=== PATIENT | male | born 1970 | race African-American/Black ===

== ENCOUNTER 2017-09-06 23:12 | Inpatient (IN) | payer BC, MEDICARE ==
[~2017-09-06] VITALS: Ht 175.3 cm; Wt 115.0 kg
[2017-09-07] VITALS (21 sets, daily range): BP systolic 115–135; BP diastolic 66–82; PULSE 57–88; RESP 16–20; TEMP 97.8–98.3; O2SAT 93–100
[2017-09-07] MEDS ORDERED: SODIUM CHLORIDE 0.9% FLUSH 10 ML FLUSH IV FLUSH PRN ×2 (00:30→13:45)
[2017-09-07] MEDS ORDERED: NALOXONE HCL 0.4 MG/ML AMP IV PUSH PRN (00:30)
[2017-09-07 02:05] LABS: AUTOMATED NEUTROPHIL # 1.9 TH/MM3 (1.8-7.7); BASOPHIL # 0.1 TH/MM3 (0-0.2); BASOPHIL % 1.3 % (0.0-2.0); EOSINOPHIL # 0.1 TH/MM3 (0-0.4); EOSINOPHIL % 1.5 % (0.0-4.0); HEMATOCRIT 40.3 % (39.0-51.0); HEMOGLOBIN 13.7 GM/DL (13.0-17.0); LYMPH % 42.8 % (9.0-44.0); LYMPHOCYTE # 1.9 TH/MM3 (1.0-4.8); MEAN CELL VOLUME 95.1 FL (80.0-100.0); MEAN CORPUSCULAR HEMOGLOBIN 32.4 PG (27.0-34.0); MEAN CORPUSCULAR HGB CONC 34.1 % (32.0-36.0); MEAN PLATELET VOLUME 7.7 FL (7.0-11.0); MONO % 12.3 % (0.0-8.0); MONOCYTE # 0.6 TH/MM3 (0-0.9); NEUT % 42.1 % (16.0-70.0); PLATELET COUNT 216 TH/MM3 (150-450); RED BLOOD COUNT 4.24 MIL/MM3 (4.50-5.90); RED CELL DISTRIBUTION WIDTH 14.3 % (11.6-17.2); WHITE BLOOD COUNT 4.5 TH/MM3 (4.0-11.0)
[2017-09-07 02:12] LABS: PROTHROMBIN TIME - PATIENT 10.4 SEC (9.8-11.6)
[2017-09-07] MEDS ORDERED: SUCR5CHW CHEW (02:33)
[2017-09-07] MEDS ORDERED: SEVEL800 PO (02:33)
[2017-09-07] MEDS ORDERED: PROT40TA PO (02:33)
[2017-09-07] MEDS ORDERED: SENS60TA PO (02:33)
[2017-09-07] MEDS ORDERED: NEPHTAB3 PO (02:33)
[2017-09-07] MEDS ORDERED: FURO1TAB61 PO (02:33)
[2017-09-07] MEDS ORDERED: ALLO300T2 PO (02:33)
[2017-09-07 02:38] LABS: BICARBONATE 30.2 MEQ/L (21.0-32.0)
--- NOTE | 2017-09-07 02:42 | HHI.HP ---
[facility] Primary Care Physician No Primary Care Physician Admission Diagnosis Diagnoses: Chief Complaint: preop kidney transplant Travel History International Travel<30 Days: No Contact w/Intl Traveler <30 Da: No History of Present Illness 47 y/o male with a history of ESRD, HLD, HTN, and gout was a direct admit for a kidney transplant by the transplant team today or Monday. Patient states he feels well. Denies any chest pain, sob, fever or chills. Review of Systems Except as stated in HPI: all other systems reviewed are Neg Past Family Social History Past Medical History ESRD Gout HTN HLD. Gerd Past Surgical History LAVF Left wrist surgery Reported Medications Reported Meds & Active Scripts Active Reported Velphoro (Sucroferric Oxyhydroxide) 500 Mg Chew 1,000 Mg CHEW TIDPC Protonix (Pantoprazole Sodium) 40 Mg Tab 40 Mg PO DAILY Sensipar (Cinacalcet) 60 Mg Tab 60 Mg PO DAILY Nephro-Michelle (B-Complex W/ C & Folic Acid) 1 Tab 1 Tab PO DAILY Lasix (Furosemide) 80 Mg Tab 80 Mg PO BID Allopurinol 300 Mg Tab 300 Mg PO DAILY Renvela (Sevelamer Carbonate) 800 Mg Tab 3,200 Mg PO BIDPC Allergies: Coded Allergies: Sulfa (Sulfonamide Antibiotics) (Unverified Allergy, Intermediate, Respiratory Failure and Swelling, 03/07/17) Uncoded Allergies: seasonal allergies (Allergy, Mild, 08/18/16) Active Ordered Medications Current Medications Medications (Trade) Dose Ordered Sig/Alisha Route Start Time Stop Time Status Last Admin (NS Flush) 2 ml UNSCH PRN IV FLUSH 09/07/17 00:30 (NS Flush) 2 ml BID IV FLUSH 09/07/17 09:00 (Narcan Inj) 0.4 mg UNSCH PRN IV PUSH 09/07/17 00:30 Family History Family history significant for HTN and DM Social History Patient denies any tobacco, alcohol or illicit drug use. Physical Exam Physical Exam GENERAL: This is a well-nourished, well-developed patient, in no apparent distress. SKIN: No rashes, ecchymoses or lesions. Cool and dry. HEAD: Atraumatic. Normocephalic. No temporal or scalp tenderness. EYES: Pupils equal round and reactive. Extraocular motions intact. ENT: Nose without bleeding, purulent drainage or septal hematoma. Airway patent. NECK: Trachea midline. No JVD or lymphadenopathy. CARDIOVASCULAR: Regular rate and rhythm without murmurs, gallops, or rubs. RESPIRATORY: Clear to auscultation. Breath sounds equal bilaterally. No wheezes , rales, or rhonchi. GASTROINTESTINAL: Abdomen soft, non-tender, nondistended. MUSCULOSKELETAL: Extremities without clubbing, cyanosis, or edema. No joint tenderness, effusion, or edema noted. NEUROLOGICAL: Awake and alert. Motor and sensory grossly within normal limits. Normal speech. Laboratory Laboratory Tests Test 09/07/17 01:00 White Blood Count 4.5 Red Blood Count 4.24 Hemoglobin 13.7 Hematocrit 40.3 Mean Corpuscular Volume 95.1 Mean Corpuscular Hemoglobin 32.4 Mean Corpuscular Hemoglobin Concent 34.1 Red Cell Distribution Width 14.3 Platelet Count 216 Mean Platelet Volume 7.7 Neutrophils (%) (Auto) 42.1 Lymphocytes (%) (Auto) 42.8 Monocytes (%) (Auto) 12.3 Eosinophils (%) (Auto) 1.5 Basophils (%) (Auto) 1.3 Neutrophils # (Auto) 1.9 Lymphocytes # (Auto) 1.9 Monocytes # (Auto) 0.6 Eosinophils # (Auto) 0.1 Basophils # (Auto) 0.1 CBC Comment DIFF FINAL Differential Comment Prothrombin Time 10.4 Prothromb Time International Ratio 1.0 Result Diagram: 09/07/17 0100 Caprini VTE Risk Assessment Caprini VTE Risk Assessment: No/Low Risk (score <= 1) Caprini Risk Assessment Model Point Value = 1 Point Value = 2 Point Value = 3 Point Value = 5 Age 41-60 Minor surgery BMI > 25 kg/m2 Swollen legs Varicose veins or History of unexplained or recurrent spontaneous Oral contraceptives or hormone replacement Sepsis (< 1 month) Serious lung disease, including pneumonia (< 1 month) Abnormal pulmonary function Acute myocardial infarction Congestive heart failure (< 1 month) History of inflammatory bowel disease Medical patient at bed rest Age 61-74 Arthroscopic surgery Major open surgery (> 45 min) Laparoscopic surgery (> 45 min) Malignancy Confined to bed (> 72 hours) Immobilizing plaster cast Central venous access Age >= 75 History of VTE Family history of VTE Factor V Leiden Prothrombin [id number] Lupus anticoagulant Anticardiolipin antibodies Elevated serum homocysteine Heparin-induced thrombocytopenia Other congenital or acquired thrombophilia Stroke (< 1 month) Elective arthroplasty Hip, pelvis, or leg fracture Acute spinal cord injury (< 1 month) Prophylaxis Regimen Total Risk Factor Score Risk Level Prophylaxis Regimen 0-1 Low Early ambulation 2 Moderate Order ONE of the following: *Sequential Compression Device (SCD) *Heparin 5000 units SQ BID 3-4 Higher Order ONE of the following medications: *Heparin 5000 units SQ TID *Enoxaparin/Lovenox 40 mg SQ daily (WT < 150 kg, CrCl > 30 mL/min) *Enoxaparin/Lovenox 30 mg SQ daily (WT < 150 kg, CrCl > 10-29 mL/min) *Enoxaparin/Lovenox 30 mg SQ BID (WT < 150 kg, CrCl > 30 mL/min) AND/OR *Sequential Compression Device (SCD) 5 or more Highest Order ONE of the following medications: *Heparin 5000 units SQ TID (Preferred with Epidurals) *Enoxaparin/Lovenox 40 mg SQ daily (WT < 150 kg, CrCl > 30 mL/min) *Enoxaparin/Lovenox 30 mg SQ daily (WT < 150 kg, CrCl > 10-29 mL/min) *Enoxaparin/Lovenox 30 mg SQ BID (WT < 150 kg, CrCl > 30 mL/min) AND *Sequential Compression Device (SCD) Assessment and Plan Problem List: (1) ESRD (end stage renal disease) on dialysis ICD Code: N18.6 - End stage renal disease; Z99.2 - Dependence on renal dialysis Status: Acute (2) Hypertension ICD Code: I10 - Essential (primary) hypertension Status: Acute Assessment and Plan 47 y/o male with a history of ESRD, HLD, HTN, and gout was a direct admit for a kidney transplant by the transplant team today or Monday. ESRD on dialysis admitted for renal transplant -Renal transplant team to see patient in AM -Resume home medications -Avoid nephrotoxins Other chronic conditions: Resume home medications DVT prophylaxis: SCDs Discussed Condition With Patient, RN and Dr. Anton Physician Certification 2 Midnight Certification Type: Admission for Inpatient Services Order for Inpatient Services The services are ordered in accordance with Medicare regulations or non- Medicare payer requirements, as applicable. In the case of services not specified as inpatient-only, they are appropriately provided as inpatient services in accordance with the 2-midnight benchmark. Estimated LOS (days): 3 days is the estimated time the patient will need to remain in the hospital, assuming treatment plan goals are met and no additional complications. Post-Hospital Plan: Home Pricila Calderón Sep 07, 2017 02:42
--- NOTE | 2017-09-07 07:42 | HHI.PR ---
Subjective Remarks in no acute distress. resting comfortably. d/w the RN and no acute issues over night. Objective Vitals Vital Signs Date Time Temp Pulse Resp B/P (MAP) Pulse Ox O2 Delivery O2 Flow Rate FiO2 09/07/17 06:00 60 09/07/17 05:00 64 09/07/17 04:00 66 09/07/17 03:00 64 09/07/17 03:00 98.0 70 16 131/78 (95) 94 09/07/17 02:00 70 09/07/17 01:00 62 09/07/17 00:00 98.3 73 16 128/82 (97) 93 09/07/17 00:00 93 Room Air I/O 09/06/17 09/06/17 09/06/17 09/07/17 09/07/17 09/07/17 07:00 15:00 23:00 07:00 15:00 23:00 Intake Total 240 ml Output Total 0 ml Balance 240 ml Intake Oral 240 ml Output Urine Total 0 ml Result Diagram: 09/07/17 01009/07/17 010 Objective Remarks GENERAL: This is a well-nourished, well-developed patient, in no apparent distress. CARDIOVASCULAR: Regular rate and regular rhythm without murmurs, gallops, or rubs. RESPIRATORY: Clear to auscultation. Breath sounds equal bilaterally. No wheezes , rales, or rhonchi. GASTROINTESTINAL: Abdomen soft, non-tender, nondistended. Normal, active bowel sounds MUSCULOSKELETAL: Extremities without clubbing, cyanosis, or edema. NEURO: Alert & Oriented x4 to person, place, time, situation. Moves all ext x4 Medications and IVs Inpatient Medications Allopurinol (Zyloprim) 300 mg DAILY PO ; Start 09/07/17 at 09:00 Cinacalcet (Sensipar) 60 mg DAILY PO ; Start 09/07/17 at 09:00 Furosemide (Lasix) 80 mg BID PO ; Start 09/07/17 at 09:00 Naloxone HCl (Narcan Inj) 0.4 mg UNSCH PRN IV PUSH SEE LABEL COMMENTS; Start at 00:30 Pantoprazole Sodium (Protonix) 40 mg DAILY PO ; Start 09/07/17 at 09:00 Patient Own Medication PT OWN MED:SUCROFERRIC OXYHYDROX... TIDPC PO ; Start at 09:30; Status Future Hold Sevelamer Carbonate (Renvela) 3,200 mg BIDPC PO ; Start 09/07/17 at 09:00 Sodium Chloride (NS Flush) 2 ml BID IV FLUSH ; Start 09/07/17 at 09:00 Vitamin B Complex/ Vit C/Folic Acid (Nephrocaps) 1 cap DAILY PO ; Start at 09:00 A/P Problem List: (1) ESRD (end stage renal disease) on dialysis ICD Code: N18.6 - End stage renal disease; Z99.2 - Dependence on renal dialysis Status: Acute (2) Hypertension ICD Code: I10 - Essential (primary) hypertension Status: Acute Assessment and Plan ESRD on dialysis admitted for renal transplant -Renal transplant team to see patient today. -consult nephrology. -Resumed home medications -Avoid nephrotoxins Other chronic conditions: Resumed home medications DVT prophylaxis: SCDs Discharge Planning for kidney transplant. Zach Aguayo MD Sep 07, 2017 07:42
[2017-09-07] MEDS ORDERED: SODIUM CHLOR 0.9% 1000 ML INJ 1,000 ML IV ONE (08:00)
[2017-09-07] MEDS: SODIUM CHLORIDE 0.9% FLUSH 10 ML FLUSH IV FLUSH SCH ×2 (09:00→20:06)
[2017-09-07] MEDS: CINACALCET HYDROCHLORIDE 30 MG TAB PO SCH (09:00)
[2017-09-07] MEDS: VITAMIN B CMPLX/VITC/FOLIC AC CAP PO SCH (09:03)
[2017-09-07] MEDS: PANTOPRAZOLE SOD 40 MG DELAYED RELEASE TAB PO SCH (09:04)
[2017-09-07] MEDS: FUROSEMIDE 40 MG TAB PO SCH ×2 (09:04→20:06)
[2017-09-07] MEDS: SUCROFERRIC OXYHYDROXIDE 500 MG PO SCH ×3 (09:04→18:30)
[2017-09-07] MEDS: ALLOPURINOL 300 MG TAB PO SCH (09:04)
[2017-09-07] MEDS: SEVELAMER CARBONATE 800 MG TAB PO SCH ×3 (09:05→19:32)
[2017-09-07] MEDS ORDERED: methylPREDNISolone SO SUCC INJ 500 MG in SODIUM CHLORIDE 0.9% INJ 100 ML IV ONE (09:15)
[2017-09-07] MEDS ORDERED: MYCOPHENOLATE MOFETIL INJ 1,000 MG in DEXTROSE 5% IN WATE 150 ML INJ 150 ML IV SCH ×4 (09:15→16:30)
[2017-09-07] MEDS ORDERED: ceFAZolin 2 GM PREMIX 50 ML IV SCH (09:15)
[2017-09-07] MEDS ORDERED: SUCROFERRIC OXYHYDROXIDE 500 MG PO SCH (09:30)
[2017-09-07] MEDS ORDERED: THYMOGLOBULIN ANAPYLAXIS KIT MISC XX PRN (09:30)
--- NOTE | 2017-09-07 10:11 | RADRPT ---
EXAM DATE/TIME: 09/07/2017 09:58 [place] COMPARISON: No previous studies available for comparison. INDICATIONS : Evaluate for pneumonia, pneumothorax, or communicable disease. Pre-op for kidney transplant. MEDICAL HISTORY : None. SURGICAL HISTORY : None. ENCOUNTER: Initial ACUITY: 1 day PAIN SCORE: 0/10 LOCATION: Bilateral chest FINDINGS: PA and lateral views of the chest demonstrate the lungs to be symmetrically aerated without evidence of mass, infiltrate or effusion. The cardiomediastinal contours are unremarkable. Osseous structure s are intact. CONCLUSION: No acute disease. Neal Waters MD on September 07, 2017 at 10:09 Board Certified Radiologist. This report was verified electronically.
--- NOTE | 2017-09-07 11:03 | PD.CONS ---
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 Presents for possibel donor renal transplant. Denies any recent cardiopulmonary , infectious , or other concerning issues. Makes about 1.2 liters of urine daily Review of Systems Except as stated in HPI: all other systems reviewed are Neg Makes about 1.2 liters of urine daily. Denies any significant c/o on full survey of ROS Past Family Social History Allergies: Coded Allergies: Sulfa (Sulfonamide Antibiotics) (Unverified Allergy, Intermediate, Respiratory Failure and Swelling, 03/07/17) Uncoded Allergies: seasonal allergies (Allergy, Mild, 08/18/16) Past Medical History Includes htn, gout CAD, FSGS Past Surgical History Includes left arm AVF and right wrist surgery for torn ligament Family History several relatives with htn, DM , and CAD, obesity. Maternal grandmother- had a CA Social History Denies tob/ etoh/ illicit drug use Physical Exam Vital Signs Vital Signs Date Time Temp Pulse Resp B/P (MAP) Pulse Ox O2 Delivery O2 Flow Rate FiO2 09/07/17 10:00 09/07/17 09:00 66 09/07/17 08:00 70 09/07/17 07:30 57 09/07/17 07:30 96 Room Air 09/07/17 07:30 98.2 76 20 128/75 (92) 96 09/07/17 06:00 60 09/07/17 05:00 64 09/07/17 04:00 66 09/07/17 03:00 64 09/07/17 03:00 98.0 70 16 131/78 (95) 94 09/07/17 02:00 70 09/07/17 01:00 62 09/07/17 00:00 98.3 73 16 128/82 (97) 93 09/07/17 00:00 93 Room Air Physical Exam GENERAL: This is a well-nourished, well-developed patient, in no apparent distress. SKIN: No rashes, ecchymoses or lesions. Cool and dry. HEAD: Atraumatic. Normocephalic. No temporal or scalp tenderness. EYES: Pupils equal round and reactive. Extraocular motions intact. No scleral icterus. No injection or drainage. ENT: Nose without bleeding, purulent drainage or septal hematoma. Throat without erythema, tonsillar hypertrophy or exudate. Uvula midline. Airway patent. NECK: Trachea midline. No JVD or lymphadenopathy. Supple, nontender, no meningeal signs. CARDIOVASCULAR: Regular rate and rhythm without murmurs, gallops, or rubs. No carotid bruits. RESPIRATORY: Clear to auscultation. Breath sounds equal bilaterally. No wheezes , rales, or rhonchi. GASTROINTESTINAL: Abdomen soft, non-tender, nondistended. No hepato-splenomegaly , or palpable masses. No guarding. HISTOLOGY TECHNICIAN/RECT: No inguinal hernias. No testicular masses. MUSCULOSKELETAL: Extremities without clubbing, cyanosis, or edema. No joint tenderness, effusion, or edema noted. No calf tenderness. Negative Homans sign bilaterally. Palpable femoral/DP/ PT pulses bilaterally NEUROLOGICAL: Awake and alert. Cranial nerves II through XII intact. Motor and sensory grossly within normal limits. Five out of 5 muscle strength in all muscle groups. Normal speech. Laboratory Laboratory Tests Test 09/07/17 01:00 White Blood Count 4.5 Red Blood Count 4.24 Hemoglobin 13.7 Hematocrit 40.3 Mean Corpuscular Volume 95.1 Mean Corpuscular Hemoglobin 32.4 Mean Corpuscular Hemoglobin Concent 34.1 Red Cell Distribution Width 14.3 Platelet Count 216 Mean Platelet Volume 7.7 Neutrophils (%) (Auto) 42.1 Lymphocytes (%) (Auto) 42.8 Monocytes (%) (Auto) 12.3 Eosinophils (%) (Auto) 1.5 Basophils (%) (Auto) 1.3 Neutrophils # (Auto) 1.9 Lymphocytes # (Auto) 1.9 Monocytes # (Auto) 0.6 Eosinophils # (Auto) 0.1 Basophils # (Auto) 0.1 CBC Comment DIFF FINAL Differential Comment Prothrombin Time 10.4 Prothromb Time International Ratio 1.0 Blood Urea Nitrogen 46 Creatinine 10.00 Random Glucose 92 Calcium Level 9.0 Sodium Level 137 Potassium Level 3.9 Chloride Level 99 Carbon Dioxide Level 30.2 Anion Gap 8 Estimat Glomerular Filtration Rate 7 Result Diagram: 09/07/17 0100 09/07/17 0100 Assessment and Plan Problem List: (1) Hypertension ICD Codes: I10 - Essential (primary) hypertension Status: Acute (2) ESRD (end stage renal disease) on dialysis ICD Codes: N18.6 - End stage renal disease; Z99.2 - Dependence on renal dialysis Status: Acute Assessment and Plan 47 yom with CKD-5 due to Htn. Hx of FSGS. BMI 32. Last HD yesterday (monday) . Lives in [place]. Admitted last night for possible brain donor, renal transplant. Patient was asked to come in and be admitted last night, since he lives in the [place] area and the original Donor OR was planned for 1899 last night> the planned donor OR was delayed, however, due to some delay in allocation of the thoracic organs. Donor OR is planned for today. Potentially we may not proceed to surgery until tomorrow. This was discussed with the patient and his . They seem to understand an are okay with that. We briefly reviewed the surgery and the hospital course. All questions were answered. Preop admission testing in process. Will await for input form the OP regarding the donor organ. All questions answered. Von Caba Jr., MD Sep 07, 2017 11:03
[2017-09-07] MEDS ORDERED: ANTITHYMOCYTE GLOB(RABBIT) INJ 150 MG in SODIUM CHLORID 0.9% 500 ML INJ 500 ML IV-CENTRAL ONE (11:30)
[2017-09-07 11:49] LABS: ALBUMIN 3.7 GM/DL (3.4-5.0); ALKALINE PHOSPHATASE 148 U/L (45-117); ALT (GPT) 34 U/L (12-78); AST (GOT) 18 U/L (15-37); BICARBONATE 30.5 MEQ/L (21.0-32.0); BLOOD UREA NITROGEN 48 MG/DL (7-18); CALCIUM 9.5 MG/DL (8.5-10.1); CHLORIDE 99 MEQ/L (98-107); GLOMERULAR FILTRATION RATE 6 ML/MIN (>89); GLUCOSE,RANDOM 91 MG/DL (74-106); SODIUM (NA) 137 MEQ/L (136-145); TOTAL BILIRUBIN ADULT 0.4 MG/DL (0.2-1.0); TOTAL PROTEIN 8.8 GM/DL (6.4-8.2)
[2017-09-07 11:53] LABS: CREATININE 11.42 MG/DL (0.60-1.30)
[2017-09-07] MEDS ORDERED: SODIUM CHLOR 0.9% 1000 ML INJ 1,000 ML IV PRN (13:34)
[2017-09-07] MEDS ORDERED: SODIUM CHLOR 0.9% 1000 ML INJ 1,000 ML OTHER PRN ×2 (13:34)
--- NOTE | 2017-09-07 13:38 | PD.CONS ---
HPI Service Nephrology Consult Requested By Dr. Aguayo Reason for Consult ESRD Primary Care Physician No Primary Care Physician History of Present Illness Patient is a 47-year-old male with history of ESRD, hypertension who has been on our list receive a potential donor kidney transplant offer, he is here he goes on dialysis on Monday, Monday and Monday. There is a potential of surgery early in the morning, he denies any chest pain shortness of breath at such Review of Systems Constitutional: DENIES: Diaphoretic episodes, Fatigue, Fever, Weight gain, Weight loss, Chills, Dizziness, Change in appetite, Night Sweats Endocrine: DENIES: Heat/cold intolerance, Polydipsia, Polyuria, Polyphagia Eyes: DENIES: Blurred vision, Diplopia, Eye inflammation, Eye pain, Vision loss , Photosensitivity, Double Vision Ears, nose, mouth, throat: DENIES: Tinnitus, Hearing loss, Vertigo, Nasal discharge, Oral lesions, Throat pain, Hoarseness, Ear Pain, Running Nose, Epistaxis, Sinus Pain, Toothache, Odynophagia Respiratory: DENIES: Apneas, Cough, Snoring, Wheezing, Hemoptysis, Sputum production, Shortness of breath Cardiovascular: DENIES: Chest pain, Palpitations, Syncope, Dyspnea on Exertion , PND, Lower Extremity Edema, Orthopnea, Claudication Gastrointestinal: DENIES: Abdominal pain, Black stools, Bloody stools, Constipation, Diarrhea, Nausea, Vomiting, Difficulty Swallowing, Anorexia Genitourinary: COMPLAINS OF: Sexual dysfunction, Urinary frequency, Urinary incontinence, Urgency, Hematuria, Dysuria, Nocturia, Penile Discharge, Testicular Pain, Testicular Swelling Musculoskeletal: DENIES: Joint pain, Muscle aches, Stiffness, Joint Swelling, Back pain, Neck pain Integumentary: DENIES: Abnormal pigmentation, Nail changes, Pruritus, Rash Hematologic/lymphatic: DENIES: Bruising, Lymphadenopathy Neurologic: DENIES: Abnormal gait, Headache, Localized weakness, Paresthesias, Seizures, Speech Problems, Tremor, Poor Balance Psychiatric: DENIES: Anxiety, Confusion, Mood changes, Depression, Hallucinations, Agitation, Suicidal Ideation, Homicidal Ideation, Delusions Past Family Social History Allergies: Coded Allergies: Sulfa (Sulfonamide Antibiotics) (Unverified Allergy, Intermediate, Respiratory Failure and Swelling, 03/07/17) Uncoded Allergies: seasonal allergies (Allergy, Mild, 08/18/16) Past Medical History ESRD FSGS Ulcer polyps Gout Hyperlipidemia Past Surgical History AVF Left arm Gastric ulcer repair Endoscopy 2011 Rt hand surgery for wrist ligament Reported Medications Reported Meds & Active Scripts Active Reported Velphoro (Sucroferric Oxyhydroxide) 500 Mg Chew 1,000 Mg CHEW TIDPC Protonix (Pantoprazole Sodium) 40 Mg Tab 40 Mg PO DAILY Sensipar (Cinacalcet) 60 Mg Tab 60 Mg PO DAILY Nephro-Michelle (B-Complex W/ C & Folic Acid) 1 Tab 1 Tab PO DAILY Lasix (Furosemide) 80 Mg Tab 80 Mg PO BID Allopurinol 300 Mg Tab 300 Mg PO DAILY Renvela (Sevelamer Carbonate) 800 Mg Tab 3,200 Mg PO BIDPC Active Ordered Medications Current Medications Medications (Trade) Dose Ordered Sig/Alisha Route Start Time Stop Time Status Last Admin (NS Flush) 2 ml UNSCH PRN IV FLUSH 09/07/17 00:30 (NS Flush) 2 ml BID IV FLUSH 09/07/17 09:00 09/07/17 09:00 (Narcan Inj) 0.4 mg UNSCH PRN IV PUSH 09/07/17 00:30 (Zyloprim) 300 mg DAILY PO 09/07/17 09:00 09/07/17 09:04 (Lasix) 80 mg BID PO 09/07/17 09:00 09/07/17 09:04 (Protonix) 40 mg DAILY PO 09/07/17 09:00 09/07/17 09:04 (Renvela) 3,200 mg BIDPC PO 09/07/17 09:00 09/07/17 09:05 (Nephrocaps) 1 cap DAILY PO 09/07/17 09:00 09/07/17 09:03 (Sensipar) 60 mg DAILY PO 09/07/17 09:00 09/07/17 09:00 Sodium Chloride 1,000 ml @ 30 mls/hr Q24H ONCE IV 09/07/17 08:00 09/08/17 07:59 09/07/17 08:00 Patient Own Medication PT OWN MED:SUCROFERRIC OXYHYDROX... TIDPC PO 09/07/17 09:30 09/07/17 09:04 Cefazolin Sodium/ Dextrose 50 ml @ 100 mls/hr COLD ROLL CATCHER IV 09/07/17 09:15 09/11/17 09:14 Anti-Thymocyte Globulin (Rabbit) 150 mg/Sodium Chloride 500 ml @ 83.333 mls/ hr ONCE ONCE IV-CENTRAL 09/07/17 11:30 09/07/17 17:29 Miscellaneous Information 1 UNSCH PRN XX 09/07/17 09:30 Family History History of diabetes and hypertension in the family Social History Denies smoking or alcohol use Physical Exam Vital Signs Vital Signs Date Time Temp Pulse Resp B/P (MAP) Pulse Ox O2 Delivery O2 Flow Rate FiO2 09/07/17 13:00 66 09/07/17 12:00 75 09/07/17 11:00 78 09/07/17 11:00 98.0 84 20 126/72 (90) 95 09/07/17 10:00 09/07/17 09:00 66 09/07/17 08:00 70 09/07/17 07:30 57 09/07/17 07:30 96 Room Air 09/07/17 07:30 98.2 76 20 128/75 (92) 96 09/07/17 06:00 60 09/07/17 05:00 64 09/07/17 04:00 66 09/07/17 03:00 64 09/07/17 03:00 98.0 70 16 131/78 (95) 94 09/07/17 02:00 70 09/07/17 01:00 62 09/07/17 00:00 98.3 73 16 128/82 (97) 93 09/07/17 00:00 93 Room Air Physical Exam GENERAL: Well-nourished, well-developed patient. SKIN: Warm and dry. HEAD: Normocephalic. EYES: No scleral icterus. No injection or drainage. NECK: Supple, trachea midline. No JVD or lymphadenopathy. CARDIOVASCULAR: Regular rate and rhythm without murmurs, gallops, or rubs. RESPIRATORY: Breath sounds equal bilaterally. No accessory muscle use. GASTROINTESTINAL: Abdomen soft, non-tender, nondistended. EXTREMITIES: No cyanosis, or edema. NEUROLOGICAL: Awake, alert, and oriented x 3. Non-focal. Laboratory Laboratory Tests Test 09/07/17 01:00 09/07/17 11:17 White Blood Count 4.5 Red Blood Count 4.24 Hemoglobin 13.7 Hematocrit 40.3 Mean Corpuscular Volume 95.1 Mean Corpuscular Hemoglobin 32.4 Mean Corpuscular Hemoglobin Concent 34.1 Red Cell Distribution Width 14.3 Platelet Count 216 Mean Platelet Volume 7.7 Neutrophils (%) (Auto) 42.1 Lymphocytes (%) (Auto) 42.8 Monocytes (%) (Auto) 12.3 Eosinophils (%) (Auto) 1.5 Basophils (%) (Auto) 1.3 Neutrophils # (Auto) 1.9 Lymphocytes # (Auto) 1.9 Monocytes # (Auto) 0.6 Eosinophils # (Auto) 0.1 Basophils # (Auto) 0.1 CBC Comment DIFF FINAL Differential Comment Prothrombin Time 10.4 Prothromb Time International Ratio 1.0 Blood Urea Nitrogen 46 48 Creatinine 10.00 11.42 Random Glucose 92 91 Calcium Level 9.0 9.5 Sodium Level 137 137 Potassium Level 3.9 4.4 Chloride Level 99 99 Carbon Dioxide Level 30.2 30.5 Anion Gap 8 8 Estimat Glomerular Filtration Rate 7 6 Total Protein 8.8 Albumin 3.7 Alkaline Phosphatase 148 Aspartate Amino Transf (AST/SGOT) 18 Alanine Aminotransferase (ALT/SGPT) 34 Total Bilirubin 0.4 Result Diagram: 09/07/17 0100 09/07/17 1117 Assessment and Plan Problem List: (1) ESRD (end stage renal disease) on dialysis ICD Codes: N18.6 - End stage renal disease; Z99.2 - Dependence on renal dialysis Status: Acute Plan: Patient is going to receive kidney transplant early in the morning it was discussed with Dr. Caba that we need to dialyze him this afternoon He agreed with the plan Continue to monitor (2) Hypertension ICD Codes: I10 - Essential (primary) hypertension Status: Acute Plan: Controlled on medication Problem Qualifiers (1) Hypertension: Qualified Codes: I10 - Essential (primary) hypertension John Colmenares MD Sep 07, 2017 13:38
[2017-09-07] MEDS ORDERED: cloNIDine HCL 0.1 MG TAB PO PRN (13:45)
[2017-09-07] MEDS ORDERED: HEPARIN SODIUM - IV 10,000 UNITS/10 ML VIAL IV FLUSH PRN (13:45)
[2017-09-07] MEDS ORDERED: HEPARIN SODIUM - IV 10,000 UNITS/10 ML VIAL PRN (13:45)
[2017-09-07] MEDS ORDERED: ALBUMIN 25% INJ 100 ML IV PRN (13:45)
[2017-09-07] MEDS ORDERED: GELATIN 12 MM/7 MM FOAM TOP PRN (13:45)
[2017-09-07] MEDS ORDERED: MANNITOL 12.5 GM/50 ML VIAL IV PRN (13:45)
[2017-09-07] MEDS ORDERED: GENTAMICIN SULFATE 20 MG/2 ML VIAL OTHER PRN (13:45)
[2017-09-07] MEDS ORDERED: diphenhydrAMINE HCL 25 MG CAP PO PRN (13:45)
[2017-09-07] MEDS ORDERED: ACETAMINOPHEN 325 MG TAB PO PRN (13:45)
[2017-09-07] MEDS ORDERED: ONDANSETRON HCL 4 MG/2 ML VIAL IV PUSH PRN (13:45)
[2017-09-07] MEDS ORDERED: NITROGLYCERIN 0.4 MG SL 25 TABS/BTL SL PRN (13:45)
[2017-09-07] MEDS ORDERED: ANTITHYMOCYTE GLOB(RABBIT) INJ 150 MG in SODIUM CHLORID 0.9% 500 ML INJ 500 ML IV-CENTRAL SCH (16:15)
[2017-09-07] MEDS ORDERED: methylPREDNISolone SO SUCC INJ 500 MG in SODIUM CHLORIDE 0.9% INJ 100 ML IV SCH (16:30)
[2017-09-08] VITALS (18 sets, daily range): BP systolic 113–147; BP diastolic 72–79; PULSE 57–105; RESP 16–20; TEMP 97.4–98.9; O2SAT 96–100
[2017-09-08] MEDS ORDERED: ceFAZolin INJ 1,000 MG VIAL ONE (07:08)
[2017-09-08] MEDS ORDERED: GENTAMICIN SULFATE 80 MG/2 ML VIAL ONE (07:08)
[2017-09-08] MEDS ORDERED: PAPAVERINE INJ 60 MG/2 ML VIAL ONE (07:10)
--- NOTE | 2017-09-08 08:09 | HHI.PR ---
Subjective Remarks No new c/o Objective Vital Signs Date Time Temp Pulse Resp B/P (MAP) Pulse Ox O2 Delivery O2 Flow Rate FiO2 09/08/17 06:00 57 09/08/17 05:00 64 09/08/17 04:00 71 09/08/17 03:10 97.9 70 16 113/72 (86) 97 09/08/17 03:00 58 09/08/17 02:00 71 09/08/17 01:00 60 09/08/17 00:00 69 09/07/17 23:00 65 09/07/17 23:00 97.8 70 16 115/66 (82) 96 09/07/17 22:19 99 21 09/07/17 22:00 58 09/07/17 21:00 72 09/07/17 20:00 88 09/07/17 19:50 98.1 77 16 135/79 (97) 100 09/07/17 19:00 76 09/07/17 13:00 66 09/07/17 12:00 75 09/07/17 11:00 78 09/07/17 11:00 98.0 84 20 126/72 (90) 95 09/07/17 10:00 09/07/17 09:00 66 I/O 09/07/17 09/07/17 09/07/17 09/08/17 09/08/17 09/08/17 06:59 14:59 22:59 06:59 14:59 22:59 Intake Total 240 ml 240 ml Output Total 0 ml 2000 ml 100 ml Balance 240 ml -2000 ml 140 ml Intake Oral 240 ml 240 ml Output Urine Total 0 ml 100 ml Hemodialysis 2000 ml # Bowel Movements 0 Result Diagram: 09/07/17 0100 09/07/17 1117 Objective Remarks Resp-CTAB CV-s1s2 Abd-+ BS, soft, NT/ ND Ext-Calves soft NT B Assessment and Plan Problem List: (1) Hypertension ICD Codes: I10 - Essential (primary) hypertension Status: Acute (2) ESRD (end stage renal disease) on dialysis ICD Codes: N18.6 - End stage renal disease; Z99.2 - Dependence on renal dialysis Status: Acute Assessment and Plan 47 yom with CKD-5 due to Htn. Hx of FSGS. Patient preop for possible cadaveric renal transplant Problem Qualifiers (1) Hypertension: Qualified Codes: I10 - Essential (primary) hypertension Von Caba Jr., MD Sep 08, 2017 08:09
--- NOTE | 2017-09-08 08:31 | HHI.PR ---
Subjective Remarks Took a shower. No fever or chills. Satting well on room air. No cough, no LE edema. No lightheadedness, cp, palpitations. No n/v/d/c. no pain. Feels good and is ready for transplant. Patient says he is very active and walks 5 miles. Family at bedside very supportive. No events overnight. Prepping for kidney transplant today. Objective Vitals Vital Signs Date Time Temp Pulse Resp B/P (MAP) Pulse Ox O2 Delivery O2 Flow Rate FiO2 09/08/17 06:00 57 09/08/17 05:00 64 09/08/17 04:00 71 09/08/17 03:10 97.9 70 16 113/72 (86) 97 09/08/17 03:00 58 09/08/17 02:00 71 09/08/17 01:00 60 09/08/17 00:00 69 09/07/17 23:00 65 09/07/17 23:00 97.8 70 16 115/66 (82) 96 09/07/17 22:19 99 21 09/07/17 22:00 58 09/07/17 21:00 72 09/07/17 20:00 88 09/07/17 19:50 98.1 77 16 135/79 (97) 100 09/07/17 19:00 76 09/07/17 13:00 66 09/07/17 12:00 75 09/07/17 11:00 78 09/07/17 11:00 98.0 84 20 126/72 (90) 95 09/07/17 10:00 09/07/17 09:00 66 I/O 09/07/17 09/07/17 09/07/17 09/08/17 09/08/17 09/08/17 07:00 15:00 23:00 07:00 15:00 23:00 Intake Total 240 ml 240 ml Output Total 0 ml 2000 ml 100 ml Balance 240 ml -2000 ml 140 ml Intake Oral 240 ml 240 ml Output Urine Total 0 ml 100 ml Hemodialysis 2000 ml # Bowel Movements 0 Result Diagram: 09/07/17 0100 09/07/17 1117 Imaging Last Impressions Chest X-Ray 09/07/17 0000 Signed Impressions: Service Date/Time: August 09:58 - CONCLUSION: No acute disease. Neal F. Evelin, MD Objective Remarks GENERAL: This is a well-nourished, well-developed patient, in no apparent distress. CARDIOVASCULAR: Regular rate and regular rhythm without murmurs, gallops, or rubs. RESPIRATORY: Clear to auscultation. Breath sounds equal bilaterally. No wheezes , rales, or rhonchi. GASTROINTESTINAL: Abdomen soft, non-tender, nondistended. Normal, active bowel sounds MUSCULOSKELETAL: Extremities without clubbing, cyanosis, or edema. NEURO: Alert & Oriented x4 to person, place, time, situation. Moves all ext x4 A/P Problem List: (1) ESRD (end stage renal disease) on dialysis ICD Code: N18.6 - End stage renal disease; Z99.2 - Dependence on renal dialysis Status: Acute (2) Hypertension ICD Code: I10 - Essential (primary) hypertension Status: Acute Assessment and Plan ESRD on dialysis admitted for renal transplant Renal transplant team following. Poss cadaveric renal transplant today Dr Caba consult nephrology Dr Darrian deluca. Resumed home medications Avoid nephrotoxins H/H stable. Monitor Other chronic conditions appears stable, monitor. Resumed home medications DVT prophylaxis: SCDs Discharge Planning plan for kidney transplant. Problem Qualifiers (1) Hypertension: Qualified Codes: I10 - Essential (primary) hypertension Isabella Teague MD Sep 08, 2017 08:31
[2017-09-08] MEDS: SEVELAMER CARBONATE 800 MG TAB PO SCH ×2 (09:00→18:00)
[2017-09-08] MEDS: PANTOPRAZOLE SOD 40 MG DELAYED RELEASE TAB PO SCH (09:00)
[2017-09-08] MEDS: FUROSEMIDE 40 MG TAB PO SCH ×2 (09:00→21:00)
[2017-09-08] MEDS: SODIUM CHLORIDE 0.9% FLUSH 10 ML FLUSH IV FLUSH SCH ×2 (09:00→21:46)
[2017-09-08] MEDS: VITAMIN B CMPLX/VITC/FOLIC AC CAP PO SCH (09:00)
[2017-09-08] MEDS: ALLOPURINOL 300 MG TAB PO SCH (09:00)
[2017-09-08] MEDS: CINACALCET HYDROCHLORIDE 30 MG TAB PO SCH (09:00)
[2017-09-08] MEDS: SUCROFERRIC OXYHYDROXIDE 500 MG PO SCH ×3 (09:30→18:25)
[2017-09-08] MEDS ORDERED: FUROSEMIDE 40 MG/4 ML VIAL ONE ×2 (10:02→12:53)
[2017-09-08] MEDS ORDERED: fentaNYL CITRATE 1000 MCG/20 ML VIAL ONE (10:10)
[2017-09-08 11:33] LABS: HEPATITIS A AB IGM NEGATIVE (NEGATIVE); HEPATITIS B SURFACE ANTIGEN NEGATIVE (NEGATIVE); HEPATITIS C AB IgG REACTIVE (NEGATIVE)
[2017-09-08] MEDS ORDERED: DEXAMETHASONE SOD PHOS 4 MG/ML VIAL IV ONE (12:00)
[2017-09-08] MEDS ORDERED: LIDOCAINE HCL 1% PF 5 ML SYRINGE OTHER ONE (12:00)
[2017-09-08] MEDS ORDERED: ROCURONIUM INJ 50 MG/5 ML SYRINGE IV PUSH ONE (12:00)
[2017-09-08] MEDS ORDERED: NEOSTIGMINE 5 MG/5 ML SYRINGE IV PUSH ONE (12:00)
[2017-09-08] MEDS ORDERED: ONDANSETRON HCL 4 MG/2 ML VIAL IV ONE (12:00)
[2017-09-08] MEDS ORDERED: SUCCINYLCHOLINE CHLORIDE 200 MG/10 ML VIAL IV ONE (12:00)
[2017-09-08] MEDS ORDERED: PHENYLEPH/NS 1000 MCG/10 ML SYR IV ONE (12:00)
[2017-09-08] MEDS ORDERED: GLYCOPYRROLATE 1 MG/5 ML SYRINGE IV PUSH ONE (12:00)
[2017-09-08] MEDS ORDERED: ePHEDrine/NS 25 MG/5 ML SYRINGE IV ONE (12:00)
[2017-09-08] MEDS ORDERED: PROPOFOL 200 MG/20 ML AMP IV ONE (12:00)
[2017-09-08] MEDS ORDERED: HEPARIN SODIUM - SQ 10,000 UNITS/ML VIAL ONE (12:03)
[2017-09-08 13:38] LABS: HEPATITIS B CORE AB IGM NEGATIVE (NEGATIVE)
[2017-09-08] MEDS ORDERED: SUGAMMADEX SODIUM 200 MG/2 ML VIAL IV PUSH ONE (14:55)
--- NOTE | 2017-09-08 15:07 | PD.OP ---
ESRD and desire for Donor kidney Transplant Operative Report Date of Surgery: Sep 08, 2017 Preoperative Diagnosis: ESRD and desire for donor renal transplant Postoperative Diagnosis: same, right renal allograft to right iliac fossa Procedure: donor renal transplant to right renal fossa backtable prep of right renal allograft with venous reconstruction X 2 ureteral stent placement Anesthesia: GET Surgeon: Von Caba, primary Stefano Castaneda, nurse first aid Store Custodian(s): Anil Castaneda Resident Surgeon: none Operation and Findings: I was nurse first aid to Dr. Caba for the donor right allograft to right iliac fossa. The kidney was taken off pump in the OR. I was nurse first aid for the backbench preparation of the renal allograft which had three renal arteries on a common aortic cuff. We stapled the donor cava above and below the renal vein for an elongated venous outflow conduit. There was a single ureter of good length. I then assisted with the entire implantation from skin incision to skin closure. We anastomose the renal vein via the donor cava to the external iliac vein and the three renal arteries on a common aortic cuff to the proximal right external ilac artery. Standard ureter to bladder anastomosis over a J ureteral stent. The details of the dictation will be done by Dr. Caba. Stefano Castaneda MD Sep 08, 2017 15:07
[2017-09-08] MEDS ORDERED: *morphine SULFATE 8 MG/ML PERIprocedure ONLY ONE ×2 (15:13→15:51)
[2017-09-08] MEDS ORDERED: diphenhydrAMINE HCL 25 MG CAP PO PRN (15:15)
[2017-09-08] MEDS ORDERED: ONDANSETRON HCL 4 MG/2 ML VIAL IV PUSH PRN (15:15)
[2017-09-08] MEDS ORDERED: RESP: ALBUTEROL 2.5 MG/IPRATROPIUM 0.5 MG NEB (PRN) INH (15:15)
[2017-09-08] MEDS ORDERED: ONDANSETRON INJ 8 MG in DEXTROSE 5% IN WATER INJ 50 ML IV PRN ×2 (15:15)
[2017-09-08] MEDS ORDERED: NALOXONE HCL 0.4 MG/ML AMP IV PUSH PRN (15:15)
[2017-09-08] MEDS ORDERED: diphenhydrAMINE HCL 50 MG/ML VIAL IV PUSH PRN (15:15)
--- NOTE | 2017-09-08 15:39 | RADRPT ---
EXAM DATE/TIME: 09/08/2017 15:10 [facility] COMPARISON: No previous studies available for comparison. INDICATIONS : Central line placement. MEDICAL HISTORY : None. SURGICAL HISTORY : Kidney Transplant. ENCOUNTER: Subsequent ACUITY: 2 days PAIN SCORE: Non-responsive. LOCATION: Bilateral chest FINDINGS: Central line in good position. Lungs are aerated. Moderate cardiomegaly. There is no pneumothorax. . CONCLUSION: Line in good position. Kadeem Alexis MD FACR on September 08, 2017 at 15:37 Board Certified Radiologist. This report was verified electronically.
[2017-09-08 15:51] LABS: AUTOMATED NEUTROPHIL # 4.3 TH/MM3 (1.8-7.7); BASOPHIL % 0.3 % (0.0-2.0); HEMATOCRIT 39.8 % (39.0-51.0); LYMPH % 0.3 % (9.0-44.0); MEAN CELL VOLUME 97.3 FL (80.0-100.0); MEAN CORPUSCULAR HEMOGLOBIN 31.8 PG (27.0-34.0); MEAN CORPUSCULAR HGB CONC 32.7 % (32.0-36.0); MEAN PLATELET VOLUME 7.5 FL (7.0-11.0); MONO % 0.6 % (0.0-8.0); NEUT % 98.8 % (16.0-70.0); PLATELET COUNT 148 TH/MM3 (150-450); RED BLOOD COUNT 4.09 MIL/MM3 (4.50-5.90); RED CELL DISTRIBUTION WIDTH 14.7 % (11.6-17.2); WHITE BLOOD COUNT 4.4 TH/MM3 (4.0-11.0)
[2017-09-08] MEDS: DEXT 5%-NACL 0.45% 1000 ML INJ 1,000 ML IV SCH (15:55)
[2017-09-08] MEDS: CALCIUM CARBONATE 500 MG CHEWABLE TAB CHEW SCH (16:00)
[2017-09-08] MEDS ORDERED: SODIUM CHLOR 0.45% 1000 ML INJ 1,000 ML IV SCH (16:00)
[2017-09-08] MEDS: HYDROmorphone HCL PCA 6 MG/30 ML IV SCH (16:09)
[2017-09-08 16:10] LABS: BICARBONATE 24.1 MEQ/L (21.0-32.0); CALCIUM 7.4 MG/DL (8.5-10.1); CREATININE 9.92 MG/DL (0.60-1.30); PHOSPHORUS 4.8 MG/DL (2.5-4.9)
[2017-09-08] MEDS ORDERED: DO NOT ADM ANY ANTICOAGULANT DRUGS PRN (16:30)
--- NOTE | 2017-09-08 16:31 | HHI.NPPN ---
Subjective History of Present Illness 47 year old male with ESRD admitted for donor kidney transplant Objective Data Data 09/08/17 09/09/17 19:00 07:00 Intake Total 2280 ml Output Total 100 ml Balance 2180 ml IV Total 80 ml Other 2200 ml Stool Total 0 ml Estimated Blood Loss 100 ml Vital Signs Date Time Temp Pulse Resp B/P (MAP) Pulse Ox O2 Delivery O2 Flow Rate FiO2 09/08/17 16:09 20 09/08/17 15:45 84 24 122/66 (84) 100 Nasal Cannula 2 09/08/17 15:30 90 20 125/71 (89) 100 Nasal Cannula 2 09/08/17 15:15 85 22 141/74 (96) 100 Nasal Cannula 2 09/08/17 15:03 98.7 86 18 150/79 (102) 100 Nasal Cannula 2 09/08/17 10:09 Nasal Cannula 09/08/17 09:00 69 09/08/17 08:15 63 09/08/17 08:15 97.4 69 18 116/74 (88) 96 09/08/17 06:00 57 09/08/17 05:00 64 09/08/17 04:00 71 09/08/17 03:10 97.9 70 16 113/72 (86) 97 09/08/17 03:00 58 09/08/17 02:00 71 09/08/17 01:00 60 09/08/17 00:00 69 09/07/17 23:00 65 09/07/17 23:00 97.8 70 16 115/66 (82) 96 09/07/17 22:19 99 21 09/07/17 22:00 58 09/07/17 21:00 72 09/07/17 20:00 88 09/07/17 19:50 98.1 77 16 135/79 (97) 100 09/07/17 19:00 76 -: 09/08/17 1525 09/08/17 1525 Physical Exam General Appearance: Well Developed, Well Nourished Neck Neck Exam: Neck Supple Pulmonary Resp Exam: Clear Bilaterally, Breath Sounds Equal Cardiology CV Exam: Regular, Normal Sinus Rhythm Gastrointestinal/Abdomen GI Exam: Soft (postsurgical incision right lower abdomen) Extremeties Extremities Exam: No Edema Neurologic Neuro Exam: Sedated Assessment/Plan Problem List: (1) ESRD (end stage renal disease) on dialysis ICD Codes: N18.6 - End stage renal disease; Z99.2 - Dependence on renal dialysis Status: Acute Plan: Patient is seen in PACU Under sedation Transplant went well Urine output slowly improving Monitor electrolytes Continue with Thymoglobulin Prograf will be started soon (2) Hypertension ICD Codes: I10 - Essential (primary) hypertension Status: Acute Plan: Controlled on medication Problem Qualifiers (1) Hypertension: Qualified Codes: I10 - Essential (primary) hypertension John Colmenares MD Sep 08, 2017 16:31
[2017-09-08 16:47] LABS: CALCIUM-PROTEIN CORRECTED 7.5 MG/DL (8.5-10.1); TOTAL PROTEIN 6.9 GM/DL (6.4-8.2)
--- NOTE | 2017-09-08 16:58 | RADRPT ---
EXAM DATE/TIME: 09/08/2017 15:54 [facility] COMPARISON: No previous studies available for comparison. INDICATIONS : Post transplant surgery. MEDICAL HISTORY : Hypertension. Renal failure, chronic. Ulcer. Sleep apnea. Blood transfusion. SURGICAL HISTORY : Right wrist surgery. Ulcer repair. ENCOUNTER: Initial ACUITY: 1 day PAIN SCORE: 8/10 LOCATION: Right lower quadrant MEASUREMENTS: TRANSPLANT KIDNEY: 9.8 x 5.6 x 5.5 cm LOCATION: Right lower quadrant. ARCUATE ARTERIES RESISTIVE INDEX: Upper - 0.7 Mid - 0.6 Lower - 0.6 RA/EIA Ratio: 1.1 MAIN RENAL ARTERY VELOCITY: (cm/sec): 125 MAIN RENAL VEIN: Patent EXTERNAL ILIAC ARTERY VELOCITY (cm/sec): 114 * NORMAL DOPPLER FINDINGS Arcuate arteries - RI = 0.6 - 0.8 Renal artery = under 200 cm/sec Renal vein = May be monophasic with continuous flow or demonstrate some pulsatility with cardiac cycl e FINDINGS: TRANSPLANT KIDNEY: Normal cortical thickness and echotexture. No hydronephrosis, stone, or mass. No peritransplant flu id collection. URINARY BLADDER: Within normal limits given the degree of distension. CONCLUSION: Negative exam. Resistive indices are normal throughout. No hydronephrosis. Vincent Pringle MD on September 08, 2017 at 16:55 Board Certified Radiologist. This report was verified electronically.
--- NOTE | 2017-09-08 17:15 | PD.OP ---
Operative Report Date of Surgery: Sep 08, 2017 Preoperative Diagnosis: (1) ESRD (end stage renal disease) on dialysis (2) Hypertension CKD-5 Postoperative Diagnosis: Same Procedure: Complex reconstruction of right cadaveric kdiney; Right pelvic donor renal transplant. Anesthesia: GETA Surgeon: Von Caba Jr Maintenance Assistant(s): Stefano Castaneda Resident Surgeon: None Operation and Findings: Fluids: 2200: EBL: 100 ml Drains: 19 [place] Round Ghulam drain with working end placed in lateral aspect of transplant wound Cold ischemic time: 23 hour 46 min Warm ischemic time: 40 min Details of procedure: The cadaveric kidney was brought to the operating room on a perfusion pump. Appropriate identification of the kidney , the laterality, the blood type of the donor and recipient,were verified as per protocol. The kidney was then placed into a container with ice slush. We then identified the renal arteries of which there were 3; and the renal vein, which was attached to a segment of vena cava. The ureter was identified and protected throughout the dissection. We then sharply dissected the connective tissue around the arteries and the vein , with care to avoid going into the hilum. We selectively clipped or tied the tissues that we thought were small branches that could potentially bleed. The excess fat and connective tissue were dissected and discarded. We then used a vascular stapler to transect the excess ends of the vena cava, both superiorly and inferiorly, to facilitate extension of the renal vein. The kidney had three renal arteries that were approximately 3 mm apart from each other, on a carrel patch. We left the carrel patch intact. While we were doing the backtable work, after appropirate identifiaction procedures were performed, the anesthesia staff, placed SCDs, intubated the patient, and placed appropriate venous access. The patient was then prepped and draped. We then made an approximately 15 cm oblique incision in the right lower quadrant. We then after incising sharply, continued our dissection down through the subcutaneous tissue. The patient had a very generous subcutaneous layer. We then dissected through the fascial layer into the retroperitoneal space. The Bookwalter retracter was placed, with appropriate retractors placed to facilitate exposure. We clamped and ligated some superficial vessels that were identified, An approximately 4-5 cm hole was made in the superior aspect of the exposed peritoneum. This was closed with 2-0 vicryl suture in a running fashion. We then dissected around the mid-distal portion of the external iliac artery, which seemed to have a somewhat steep angle. We placed a vessel loop around it for gentle traction purposes. We then dissected out the mid to distal portion of the external iliac vein. We gave 2000 units of heparin. We then placed a venous vascular clamp made a venotomy and did an end to side venous anastomosis. We then placed 2 arterial vascular clamps made a linear arteriotomy and did and end to side arterial anastomosis, anastomosing the carrel patch with the 3 renal arteries to the external iliac artery. We then assessed for hemostasis. A few small bleeding arteries required placement of clips or cautery to secure hemostasis. This was done without incident. We then, adjusted the retractors, and dissected more caudad inorder to expose the right upper aspect of the bladder. We utilized bladder irrigation bag to help ensure that we had appropriately identified the bladder. We then transected the excess portion of the ureter, spatulated the cut end of the ureter. ligated the adjacent excess tissue, made a cystotomy; placed a 6 [place] island[place] by 12 cm stent; and did an end to side ureteroneocystostomy using PDS suture. We then used 2-0 vicryl suture to bring some of the detrusor muscle over the anastomosis in an anti-reflux fashion. We then checked for hemostasis again. A few areas required cautery or clipping. No significant bleeding or oozing was noted. We opted to place some surgicel along either side of the kidney, nonetheless. We also placed a 19 [place] island[place] Ghulam drain in the right superolateral aspect of the wound. The drain was secured with 3-0 nylon suture. The fascia was closed with #1 PDS suture. Leonel's layer was closed with 2-0 running vicryl suture. The skin was closed with yolie. A combine gauze/tape dressing was applied to the wound. The drain was covered with gauze and tape dressing also. Patient tolerated the procedure well, with all sponge and instrument counts reported as correct.. Von Caba Jr., MD Sep 08, 2017 17:14
[2017-09-08] MEDS ORDERED: ALBUMIN 5% INJ 250 ML IV ONE (17:42)
[2017-09-08] MEDS ORDERED: ALBUMIN 5% INJ 500 ML IV ONE (17:45)
[2017-09-08] MEDS ORDERED: DOPamine INJ PREMIX 500 ML ONE (18:06)
[2017-09-08 18:15] LABS: HEMATOCRIT 37.6 % (39.0-51.0); HEMOGLOBIN 12.3 GM/DL (13.0-17.0)
[2017-09-08] MEDS: ALBUMIN 5% INJ 250 ML IV SCH ×2 (18:15→18:25)
[2017-09-08] MEDS ORDERED: SODIUM CHLORID 0.9% 500 ML INJ 500 ML IV ONE (20:00)
[2017-09-08] MEDS ORDERED: TERBUTALINE INJ 1 MG/ML AMP SQ PRN (20:00)
[2017-09-08] MEDS ORDERED: DOPamine 800 MG/D5W PREMIX 500 ML IV PRN (20:00)
[2017-09-08] MEDS: PCA - TOTAL MG DILAUDID DELIVERED PER SHIFT OTHER SCH (21:46)
[2017-09-08] MEDS: DOCUSATE SODIUM 100 MG CAP PO SCH (21:46)
[2017-09-09] VITALS (28 sets, daily range): BP systolic 124–145; BP diastolic 70–79; PULSE 66–96; RESP 18–20; TEMP 98.2–99.3; O2SAT 92–100
--- NOTE | 2017-09-09 01:55 | EKG ---
Date Performed: 09/07/2017 Time Performed: 10:47:12 PTAGE: 47 years EKG: Sinus bradycardia Normal ECG except for rate NO PREVIOUS TRACING DOCTOR: Rocky Melendez Interpretating Date/Time 09/09/2017 01:53:16
[2017-09-09] MEDS ORDERED: ALBUMIN 5% INJ 250 ML IV ONE (05:15)
[2017-09-09 05:22] LABS: AUTOMATED NEUTROPHIL # 14.9 TH/MM3 (1.8-7.7); BASOPHIL # 0.1 TH/MM3 (0-0.2); BASOPHIL % 0.7 % (0.0-2.0); HEMATOCRIT 36.8 % (39.0-51.0); HEMOGLOBIN 12.2 GM/DL (13.0-17.0); LYMPH % 1.1 % (9.0-44.0); LYMPHOCYTE # 0.2 TH/MM3 (1.0-4.8); MEAN CELL VOLUME 95.4 FL (80.0-100.0); MEAN CORPUSCULAR HEMOGLOBIN 31.7 PG (27.0-34.0); MEAN CORPUSCULAR HGB CONC 33.2 % (32.0-36.0); MEAN PLATELET VOLUME 7.2 FL (7.0-11.0); MONO % 2.2 % (0.0-8.0); MONOCYTE # 0.3 TH/MM3 (0-0.9); PLATELET COUNT 161 TH/MM3 (150-450); RED BLOOD COUNT 3.85 MIL/MM3 (4.50-5.90); RED CELL DISTRIBUTION WIDTH 14.3 % (11.6-17.2); WHITE BLOOD COUNT 15.5 TH/MM3 (4.0-11.0)
[2017-09-09 05:44] LABS: BICARBONATE 25.3 MEQ/L (21.0-32.0); CALCIUM 7.8 MG/DL (8.5-10.1); MAGNESIUM 2.2 MG/DL (1.5-2.5); PHOSPHORUS 4.7 MG/DL (2.5-4.9)
[2017-09-09 05:51] LABS: CREATININE 10.34 MG/DL (0.60-1.30)
[2017-09-09] MEDS: PCA - TOTAL MG DILAUDID DELIVERED PER SHIFT OTHER SCH ×3 (06:00→22:00)
[2017-09-09] MEDS: MYCOPHENOLATE MOFETIL INJ 1,000 MG in DEXTROSE 5% IN WATE 150 ML INJ 150 ML IV SCH ×4 (07:07→18:04)
[2017-09-09] MEDS: HYDROmorphone HCL PCA 6 MG/30 ML IV SCH (08:08)
--- NOTE | 2017-09-09 08:18 | HHI.PR ---
Subjective Remarks He is up in the chair. Family at bedside. Patient has some pain at the surgical site. He feels tired, he is also lightheaded. Platt in place with bloody urine. No nausea, vomiting, diarrhea or constipation. No fever or chills. No chest pain or sob. Satting well on room air. Objective Vitals Vital Signs Date Time Temp Pulse Resp B/P (MAP) Pulse Ox O2 Delivery O2 Flow Rate FiO2 09/09/17 08:08 16 09/09/17 06:00 81 09/09/17 05:02 83 09/09/17 04:04 81 09/09/17 03:15 99.3 81 20 127/70 (89) 96 09/09/17 03:04 84 09/09/17 02:00 75 09/09/17 01:00 94 09/09/17 00:00 87 09/08/17 23:13 98.9 93 20 128/76 (93) 100 09/08/17 23:00 100 09/08/17 22:00 96 09/08/17 21:00 101 09/08/17 20:07 94 147/79 09/08/17 20:00 105 09/08/17 19:30 98.9 94 18 147/79 (101) 97 09/08/17 19:00 96 09/08/17 18:27 97 09/08/17 18:06 94 87/55 09/08/17 16:58 18 09/08/17 16:57 18 09/08/17 16:57 18 09/08/17 16:15 98.8 88 14 114/66 (82) 100 Nasal Cannula 2 09/08/17 16:09 20 09/08/17 16:00 86 16 114/66 (82) 100 Nasal Cannula 2 09/08/17 15:45 84 24 122/66 (84) 100 Nasal Cannula 2 09/08/17 15:30 90 20 125/71 (89) 100 Nasal Cannula 2 09/08/17 15:15 85 22 141/74 (96) 100 Nasal Cannula 2 09/08/17 15:03 98.7 86 18 150/79 (102) 100 Nasal Cannula 2 09/08/17 10:09 Nasal Cannula 09/08/17 09:00 69 I/O 2/16/18 2/09/08/17 09/09/17 09/09/17 09/09/17 07:00 15:00 23:00 07:00 15:00 23:00 Intake Total 240 ml 2280 ml 1090 ml 100 ml Output Total 100 ml 100 ml 975 ml 1315 ml Balance 140 ml 2180 ml 115 ml -1215 ml Intake Oral 240 ml 100 ml IV Total 80 ml 1090 ml Other 2200 ml Output Urine Total 100 ml 910 ml 1275 ml Stool Total 0 ml Drainage Total 65 ml 40 ml Estimated Blood Loss 100 ml # Bowel Movements 0 Result Diagram: 09/09/17 0418 09/09/17 0418 Imaging Last Impressions Renal Ultrasound 09/09/17 0000 Signed Impressions: Service Date/Time: Saturday, September 09, 2017 07:42 - CONCLUSION: Stable and unremarkable followup ultrasound of the right lower quadrant transplanted kidney. No evidence of hydronephrosis. Demetrio Kaye MD Chest X-Ray 09/08/17 0000 Signed Impressions: Service Date/Time: Friday, September 08, 2017 15:10 - CONCLUSION: Line in good position. Kadeem Alexis MD FACR Objective Remarks GENERAL: This is a well-nourished, well-developed patient, in no apparent distress. CARDIOVASCULAR: Regular rate and regular rhythm without murmurs, gallops, or rubs. RESPIRATORY: Clear to auscultation. Breath sounds equal bilaterally. No wheezes , rales, or rhonchi. GASTROINTESTINAL: Abdomen soft, tender in the right side at the surgical site, dressing c/d/i, nondistended. Normal, active bowel sounds MUSCULOSKELETAL: Extremities without clubbing, cyanosis, or edema. NEURO: Alert & Oriented x4 to person, place, time, situation. Moves all ext x4 Procedures Complex reconstruction of right cadaveric kidney; Right pelvic donor renal transplant. by Dr Castaneda and Dr Caba on 09/08/17 A/P Problem List: (1) ESRD (end stage renal disease) on dialysis ICD Code: N18.6 - End stage renal disease; Z99.2 - Dependence on renal dialysis Status: Acute (2) Hypertension ICD Code: I10 - Essential (primary) hypertension Status: Acute Assessment and Plan ESRD on dialysis admitted for renal transplant Complex reconstruction of right cadaveric kidney; Right pelvic donor renal transplant by Dr Castaneda and Dr Caba on 09/08/[address] Darrian deluca. Resumed home medications Avoid nephrotoxins H/H stable. Monitor Meds per kidney transplant team Hyperkalemia received Kayexalate, monitor. Other chronic conditions appears stable, monitor. Resumed home medications DVT prophylaxis: SCDs Discharge Planning s/p kidney transplant, DC when cleared by surgeon and nephro discussed with the patient, nurse, family at bedside, Dr Caba surgeon Problem Qualifiers (1) Hypertension: Qualified Codes: I10 - Essential (primary) hypertension Isabella Teague MD Sep 09, 2017 08:18
[2017-09-09] MEDS: DOCUSATE SODIUM 100 MG CAP PO SCH ×2 (08:43→20:25)
[2017-09-09] MEDS: CALCIUM CARBONATE 500 MG CHEWABLE TAB CHEW SCH ×2 (08:43→18:03)
[2017-09-09] MEDS: SEVELAMER CARBONATE 800 MG TAB PO SCH ×2 (08:43→18:00)
[2017-09-09] MEDS: ALLOPURINOL 300 MG TAB PO SCH (08:43)
[2017-09-09] MEDS: VITAMIN B CMPLX/VITC/FOLIC AC CAP PO SCH (08:44)
[2017-09-09] MEDS: SODIUM CHLORIDE 0.9% FLUSH 10 ML FLUSH IV FLUSH SCH ×2 (08:45→20:38)
[2017-09-09] MEDS ORDERED: THYMOGLOBULIN ANAPYLAXIS KIT MISC XX PRN (08:45)
[2017-09-09] MEDS: PANTOPRAZOLE SOD 40 MG DELAYED RELEASE TAB PO SCH (08:45)
[2017-09-09] MEDS: FUROSEMIDE 40 MG TAB PO SCH ×2 (08:45→20:25)
[2017-09-09] MEDS: SUCROFERRIC OXYHYDROXIDE 500 MG PO SCH ×3 (08:45→18:04)
[2017-09-09] MEDS ORDERED: PANTOPRAZOLE SODIUM 40 MG VIAL IV PUSH PRN (09:00)
[2017-09-09] MEDS: CINACALCET HYDROCHLORIDE 30 MG TAB PO SCH (09:00)
--- NOTE | 2017-09-09 09:22 | RADRPT ---
EXAM DATE/TIME: 09/09/2017 07:42 [facility] COMPARISON: US KIDNEY / TRANSPLANT, September 08, 2017, 15:54. INDICATIONS : Increased labs. Post renal transplant, 09/08/17. MEDICAL HISTORY : Hypertension. Renal failure, chronic. Ulcer. Sleep apnea. Blood transfusion. SURGICAL HISTORY : Right wrist surgery. Ulcer repair. ENCOUNTER: Initial ACUITY: 1 day PAIN SCORE: 4/10 LOCATION: Right lower quadrant MEASUREMENTS: TRANSPLANT KIDNEY: 9.9 x 6.5 x 6.5 cm LOCATION: Right lower quadrant. PREVIOUS ULTRASOUND: Sep 08 2017 RA/EIA Ratio: 1.1Values over 1.8 indicate transplant renal artery stenosis. PREVIOUS ARCUATE ARTERIES INDEX: Upper - 0.7 Mid - 0.6 Lower - 0.6 ARCUATE ARTERIES RESISTIVE INDEX: Upper - 0.7 Mid - 0.7 Lower - 0.7 RA/EIA Ratio: 0.8 MAIN RENAL ARTERY VELOCITY: (cm/sec): 104 MAIN RENAL VEIN: Patent EXTERNAL ILIAC ARTERY VELOCITY (cm/sec): 138 * NORMAL DOPPLER FINDINGS Arcuate arteries - RI = 0.6 - 0.8 Renal artery = under 200 cm/sec Renal vein = May be monophasic with continuous flow or demonstrate some pulsatility with cardiac cycl e FINDINGS: TRANSPLANT KIDNEY: Normal cortical thickness and echotexture. No hydronephrosis, stone, or mass. No peritransplant flu id collection. URINARY BLADDER: Bladder is decompressed. No new significant changes compared to the prior examination. CONCLUSION: Stable and unremarkable followup ultrasound of the right lower quadrant transplanted kidney. No evide nce of hydronephrosis. Demetrio Kaye MD on September 09, 2017 at 9:18 Board Certified Radiologist. This report was verified electronically.
--- NOTE | 2017-09-09 09:26 | HHI.PR ---
Subjective Remarks Had some bladder spasm yesterday. Manageable now. Moderate postop pain. Some burping. Denies nausea/ vomiting Objective Vital Signs Date Time Temp Pulse Resp B/P (MAP) Pulse Ox O2 Delivery O2 Flow Rate FiO2 09/09/17 09:06 92 Nasal Cannula 3.00 09/09/17 08:08 16 09/09/17 06:00 81 09/09/17 05:02 83 09/09/17 04:04 81 09/09/17 03:15 99.3 81 20 127/70 (89) 96 09/09/17 03:04 84 09/09/17 02:00 75 09/09/17 01:00 94 09/09/17 00:00 87 09/08/17 23:13 98.9 93 20 128/76 (93) 100 09/08/17 23:00 100 09/08/17 22:00 96 09/08/17 21:00 101 09/08/17 20:07 94 147/79 09/08/17 20:00 105 09/08/17 19:30 98.9 94 18 147/79 (101) 97 09/08/17 19:00 96 09/08/17 18:27 97 09/08/17 18:06 94 87/55 09/08/17 16:58 18 09/08/17 16:57 18 09/08/17 16:57 18 09/08/17 16:15 98.8 88 14 114/66 (82) 100 Nasal Cannula 2 09/08/17 16:09 20 09/08/17 16:00 86 16 114/66 (82) 100 Nasal Cannula 2 09/08/17 15:45 84 24 122/66 (84) 100 Nasal Cannula 2 09/08/17 15:30 90 20 125/71 (89) 100 Nasal Cannula 2 09/08/17 15:15 85 22 141/74 (96) 100 Nasal Cannula 2 09/08/17 15:03 98.7 86 18 150/79 (102) 100 Nasal Cannula 2 09/08/17 10:09 Nasal Cannula I/O 09/08/17 09/08/17 09/08/17 09/09/17 09/09/17 09/09/17 07:00 15:00 23:00 07:00 15:00 23:00 Intake Total 240 ml 2280 ml 1090 ml 100 ml Output Total 100 ml 100 ml 975 ml 1315 ml Balance 140 ml 2180 ml 115 ml -1215 ml Intake Oral 240 ml 100 ml IV Total 80 ml 1090 ml Other 2200 ml Output Urine Total 100 ml 910 ml 1275 ml Stool Total 0 ml Drainage Total 65 ml 40 ml Estimated Blood Loss 100 ml # Bowel Movements 0 Result Diagram: 09/09/1741709/09/17417 Objective Remarks Resp-CTAB CV-s1s2 Abd-+ BS, soft, NT/ ND Ext-Calves soft NT B Assessment and Plan Problem List: (1) Hypertension ICD Codes: I10 - Essential (primary) hypertension Status: Acute (2) ESRD (end stage renal disease) on dialysis ICD Codes: N18.6 - End stage renal disease; Z99.2 - Dependence on renal dialysis Status: Acute Assessment and Plan 47 yom with CKD-5 due to Htn. Hx of FSGS. S/p RLQ brain cadaveric renal transplant. POD1 UOP improved overnight (approx 900 ml). Some hyperkalemia noted. Will give kayexalate Calcium slightly low. ? if corrected suspect would be WNL. Will check albumin level, so can calculate. Renal US done this AM. Results/images not yet available in computer. Will review when available Will start patient on clear liquid renal diet. Will give 1.5 mg /kg of thymo today. Will start low dose prograf. Encourage IS B SCDs in place Problem Qualifiers (1) Hypertension: Qualified Codes: I10 - Essential (primary) hypertension Von Caba Jr., MD Sep 09, 2017 09:26
[2017-09-09] MEDS ORDERED: ACETAMINOPHEN 325 MG TAB PO ONE (11:30)
[2017-09-09] MEDS ORDERED: diphenhydrAMINE HCL 50 MG/ML VIAL IV PUSH ONE (11:30)
[2017-09-09] MEDS ORDERED: methylPREDNISolone SOD SUCC 125 MG/2 ML VIAL IV PUSH ONE (11:30)
[2017-09-09] MEDS ORDERED: CALCIUM GLUCONATE INJ 1 GM in SODIUM CHLORIDE 0.9% INJ 100 ML IV ONE (11:45)
[2017-09-09] MEDS ORDERED: SODIUM CHLORID 0.9% IV-CENTRAL ONE (12:00)
[2017-09-09] MEDS ORDERED: ANTITHYMOCYTE GLOB IV-CENTRAL ONE (12:00)
[2017-09-09] MEDS ORDERED: HYDROCORTISONE SOD SUCCINATE 100 MG VIAL ONE (12:33)
[2017-09-09] MEDS ORDERED: EPINEPHrine HCL (1:10,000) 1 MG/10 ML SYRINGE ONE (12:33)
[2017-09-09] MEDS: SODIUM POLYSTYRENE SULFONATE SUSP 15 GM/60 ML CUP PO SCH ×3 (12:39→23:48)
--- NOTE | 2017-09-09 14:29 | HHI.NPPN ---
Subjective History of Present Illness 47 year old male with ESRD admitted for donor kidney transplant Objective Data Data 09/09/17 09/10/17 19:00 07:00 Intake Total 630 ml Output Total 367 ml Balance 263 ml Intake Oral 480 ml IV Total 150 ml Output Urine Total 367 ml Vital Signs Date Time Temp Pulse Resp B/P (MAP) Pulse Ox O2 Delivery O2 Flow Rate FiO2 09/09/17 13:01 93 09/09/17 12:00 76 09/09/17 11:15 98.2 85 18 133/72 (92) 99 09/09/17 11:00 72 09/09/17 10:00 88 09/09/17 09:06 92 Nasal Cannula 3.00 09/09/17 09:00 80 09/09/17 08:30 98.3 71 18 145/78 (100) 100 09/09/17 08:08 16 09/09/17 08:00 82 09/09/17 07:00 90 09/09/17 06:00 81 09/09/17 05:02 83 09/09/17 04:04 81 09/09/17 03:15 99.3 81 20 127/70 (89) 96 09/09/17 03:04 84 09/09/17 02:00 75 09/09/17 01:00 94 09/09/17 00:00 87 09/08/17 23:13 98.9 93 20 128/76 (93) 100 09/08/17 23:00 100 09/08/17 22:00 96 09/08/17 21:00 101 09/08/17 20:07 94 147/79 09/08/17 20:00 105 09/08/17 19:30 98.9 94 18 147/79 (101) 97 09/08/17 19:00 96 09/08/17 18:27 97 09/08/17 18:06 94 87/55 09/08/17 16:58 18 09/08/17 16:57 18 09/08/17 16:57 18 09/08/17 16:15 98.8 88 14 114/66 (82) 100 Nasal Cannula 2 09/08/17 16:09 20 09/08/17 16:00 86 16 114/66 (82) 100 Nasal Cannula 2 09/08/17 15:45 84 24 122/66 (84) 100 Nasal Cannula 2 09/08/17 15:30 90 20 125/71 (89) 100 Nasal Cannula 2 09/08/17 15:15 85 22 141/74 (96) 100 Nasal Cannula 2 09/08/17 15:03 98.7 86 18 150/79 (102) 100 Nasal Cannula 2 -: 09/09/17 0418 09/09/17 0418 Physical Exam General Appearance: Well Developed, Well Nourished Neck Neck Exam: Neck Supple Pulmonary Resp Exam: Clear Bilaterally, Breath Sounds Equal Cardiology CV Exam: Regular, Normal Sinus Rhythm Gastrointestinal/Abdomen GI Exam: Soft (postsurgical incision right lower abdomen) Extremeties Extremities Exam: No Edema Neurologic Neuro Exam: Sedated Assessment/Plan Problem List: (1) ESRD (end stage renal disease) on dialysis ICD Codes: N18.6 - End stage renal disease; Z99.2 - Dependence on renal dialysis Status: Acute Plan: Patient is doing well Transplant kidney rt now passing more urine, K higher kayexalate given, Cr higher Thymo 2nd dose Urine output slowly improving Monitor electrolytes Continue with Thymoglobulin Prograf started follow levels PCP prophylaxis use Dapsone (2) Hypertension ICD Codes: I10 - Essential (primary) hypertension Status: Acute Plan: Controlled on medication Problem Qualifiers (1) Hypertension: Qualified Codes: I10 - Essential (primary) hypertension John Colmenares MD Sep 09, 2017 14:29
[2017-09-09] MEDS: DEXT 5%-NACL 0.45% 1000 ML INJ 1,000 ML IV SCH (17:00)
[2017-09-09] MEDS: TACROLIMUS 1 MG CAP PO SCH (18:04)
[2017-09-09 22:59] LABS: BICARBONATE 23.1 MEQ/L (21.0-32.0); CALCIUM 8.5 MG/DL (8.5-10.1); CREATININE 9.94 MG/DL (0.60-1.30)
[2017-09-10] VITALS (30 sets, daily range): BP systolic 137–156; BP diastolic 82–96; PULSE 66–95; RESP 18–19; TEMP 98–98.8; O2SAT 94–99
[2017-09-10 05:27] LABS: BASOPHIL # 0.1 TH/MM3 (0-0.2); BASOPHIL % 0.9 % (0.0-2.0); EOSINOPHIL % 0.1 % (0.0-4.0); HEMATOCRIT 32.8 % (39.0-51.0); LYMPH % 0.9 % (9.0-44.0); LYMPHOCYTE # 0.1 TH/MM3 (1.0-4.8); MEAN CELL VOLUME 95.2 FL (80.0-100.0); MEAN CORPUSCULAR HEMOGLOBIN 31.9 PG (27.0-34.0); MEAN CORPUSCULAR HGB CONC 33.5 % (32.0-36.0); MEAN PLATELET VOLUME 7.3 FL (7.0-11.0); MONO % 2.5 % (0.0-8.0); MONOCYTE # 0.2 TH/MM3 (0-0.9); NEUT % 95.6 % (16.0-70.0); PLATELET COUNT 106 TH/MM3 (150-450); RED BLOOD COUNT 3.45 MIL/MM3 (4.50-5.90); RED CELL DISTRIBUTION WIDTH 14.3 % (11.6-17.2); WHITE BLOOD COUNT 9.4 TH/MM3 (4.0-11.0)
[2017-09-10 05:50] LABS: BICARBONATE 22.5 MEQ/L (21.0-32.0); CALCIUM 8.7 MG/DL (8.5-10.1); MAGNESIUM 2.2 MG/DL (1.5-2.5); PHOSPHORUS 5.4 MG/DL (2.5-4.9)
[2017-09-10] MEDS: SODIUM POLYSTYRENE SULFONATE SUSP 15 GM/60 ML CUP PO SCH (05:56)
[2017-09-10] MEDS: PCA - TOTAL MG DILAUDID DELIVERED PER SHIFT OTHER SCH ×3 (06:00→22:00)
[2017-09-10] MEDS: MYCOPHENOLATE MOFETIL INJ 1,000 MG in DEXTROSE 5% IN WATE 150 ML INJ 150 ML IV SCH ×4 (06:01→18:05)
[2017-09-10] MEDS: TACROLIMUS 1 MG CAP PO SCH ×2 (06:01→18:05)
[2017-09-10 06:02] LABS: CREATININE 10.16 MG/DL (0.60-1.30)
[2017-09-10] MEDS ORDERED: THYMOGLOBULIN ANAPYLAXIS KIT MISC XX PRN (08:30)
[2017-09-10] MEDS: FUROSEMIDE 40 MG TAB PO SCH ×2 (08:38→21:21)
[2017-09-10] MEDS: PANTOPRAZOLE SOD 40 MG DELAYED RELEASE TAB PO SCH (08:39)
[2017-09-10] MEDS: CALCIUM CARBONATE 500 MG CHEWABLE TAB CHEW SCH ×2 (08:39→16:14)
[2017-09-10] MEDS: CINACALCET HYDROCHLORIDE 30 MG TAB PO SCH (08:39)
[2017-09-10] MEDS: VITAMIN B CMPLX/VITC/FOLIC AC CAP PO SCH (08:39)
[2017-09-10] MEDS: ALLOPURINOL 300 MG TAB PO SCH (08:39)
[2017-09-10] MEDS: DOCUSATE SODIUM 100 MG CAP PO SCH ×2 (08:39→21:21)
[2017-09-10] MEDS: SODIUM CHLORIDE 0.9% FLUSH 10 ML FLUSH IV FLUSH SCH ×2 (08:39→21:00)
[2017-09-10] MEDS: SUCROFERRIC OXYHYDROXIDE 500 MG PO SCH ×3 (08:39→18:05)
[2017-09-10] MEDS: DAPSONE 25 MG TAB PO SCH (08:39)
[2017-09-10] MEDS: SEVELAMER CARBONATE 800 MG TAB PO SCH ×3 (08:40→19:11)
--- NOTE | 2017-09-10 10:12 | HHI.PR ---
Subjective Remarks No new c/o. Denies nausea/ vomiting. + flatus. Objective Vital Signs Date Time Temp Pulse Resp B/P (MAP) Pulse Ox O2 Delivery O2 Flow Rate FiO2 09/10/17 08:01 98.4 88 18 146/89 (108) 94 09/10/17 06:00 66 09/10/17 06:00 16 09/10/17 05:00 71 09/10/17 04:00 83 09/10/17 03:05 98.4 74 18 141/82 (101) 96 09/10/17 03:02 73 09/10/17 02:00 73 09/10/17 01:00 75 09/10/17 00:00 70 09/09/17 23:00 98.3 70 18 131/79 (96) 96 09/09/17 23:00 70 09/09/17 22:00 18 09/09/17 22:00 66 18 21:00 68 18 20:00 78 18 20:00 98.4 78 18 124/74 (91) 95 18 19:00 84 18 18:01 80 18 17:00 96 18 16:00 72 18 15:01 98.3 70 18 139/76 (97) 98 09/09/17 15:01 76 18 14:00 78 18 14:00 16 18 13:01 93 18 12:00 76 18 11:15 98.2 85 18 133/72 (92) 99 18 11:00 72 I/O 18 217/18 2/17/18 218/18 18/18 18 07:00 15:00 23:00 07:00 15:00 23:00 Intake Total 140 ml 630 ml 2330 ml 15 ml Output Total 1315 ml 427 ml 645 ml 1020 ml Balance -1175 ml 203 ml 1685 ml -1005 ml Intake Oral 100 ml 480 ml 720 ml 15 ml IV Total 40 ml 150 ml 1610 ml Output Urine Total 1275 ml 427 ml 545 ml 975 ml Drainage Total 40 ml 100 ml 45 ml Result Diagram: 09/10/17 0455 09/10/175 Objective Remarks Resp-CTAB CV-s1s2 Abd-+ BS, soft, NT/ ND. Dressing dry/ intact. Ext-Calves soft NT B Assessment and Plan Problem List: (1) Hypertension ICD Codes: I10 - Essential (primary) hypertension Status: Acute (2) ESRD (end stage renal disease) on dialysis ICD Codes: N18.6 - End stage renal disease; Z99.2 - Dependence on renal dialysis Status: Acute Assessment and Plan 47 yom with CKD-5 due to Htn. Hx of FSGS. S/p RLQ brain cadaveric renal transplant. POD2 Good UOP, but creatinine has not yet started to decrease. Will monitor for now. Will advance to renal diet. Saline lock IVF Will give 1.0 mg /kg of thymo today. On low dose prograf. Encourage IS/ ambulation. B SCDs in place Problem Qualifiers (1) Hypertension: Qualified Codes: I10 - Essential (primary) hypertension Von Caba Jr., MD Sep 10, 2017 10:12
[2017-09-10] MEDS ORDERED: methylPREDNISolone SOD SUCC 125 MG/2 ML VIAL IV PUSH ONE (11:30)
[2017-09-10] MEDS ORDERED: ACETAMINOPHEN 325 MG TAB PO ONE (11:30)
[2017-09-10] MEDS ORDERED: diphenhydrAMINE HCL 50 MG CAP PO ONE (11:30)
[2017-09-10] MEDS ORDERED: SODIUM CHLORID 0.9% IV-CENTRAL ONE (12:00)
[2017-09-10] MEDS ORDERED: ANTITHYMOCYTE GLOB IV-CENTRAL ONE (12:00)
--- NOTE | 2017-09-10 12:51 | HHI.NPPN ---
Subjective History of Present Illness 47 year old male with ESRD admitted for donor kidney transplant Objective Data Data Vital Signs Date Time Temp Pulse Resp B/P (MAP) Pulse Ox O2 Delivery O2 Flow Rate FiO2 09/10/17 12:44 95 21 09/10/17 12:01 85 09/10/17 11:30 98.0 77 18 150/90 (110) 96 09/10/17 11:00 78 09/10/17 10:00 75 09/10/17 09:00 74 09/10/17 08:01 98.4 88 18 146/89 (108) 94 09/10/17 08:00 88 09/10/17 07:00 66 09/10/17 06:00 66 09/10/17 06:00 16 09/10/17 05:00 71 09/10/17 04:00 83 09/10/17 03:05 98.4 74 18 141/82 (101) 96 09/10/17 03:02 73 09/10/17 02:00 73 09/10/17 01:00 75 09/10/17 00:00 70 09/09/17 23:00 98.3 70 18 131/79 (96) 96 09/09/17 23:00 70 09/09/17 22:00 18 09/09/17 22:00 66 09/09/17 21:00 68 09/09/17 20:00 78 09/09/17 20:00 98.4 78 18 124/74 (91) 95 09/09/17 19:00 84 09/09/17 18:01 80 09/09/17 17:00 96 09/09/17 16:00 72 09/09/17 15:01 98.3 70 18 139/76 (97) 98 09/09/17 15:01 76 09/09/17 14:00 78 09/09/17 14:00 16 09/09/17 13:01 93 -: 09/10/17 0455 09/10/17 0455 Physical Exam General Appearance: Well Developed, Well Nourished Neck Neck Exam: Neck Supple Pulmonary Resp Exam: Clear Bilaterally, Breath Sounds Equal Cardiology CV Exam: Regular, Normal Sinus Rhythm Gastrointestinal/Abdomen GI Exam: Soft (postsurgical incision right lower abdomen) Extremeties Extremities Exam: No Edema Neurologic Neuro Exam: Sedated Assessment/Plan Problem List: (1) ESRD (end stage renal disease) on dialysis ICD Codes: N18.6 - End stage renal disease; Z99.2 - Dependence on renal dialysis Status: Acute Plan: Patient is doing well Transplant kidney rt now passing more urine, , Cr higher Thymo 3rd dose Urine output good Monitor electrolytes Continue with Thymoglobulin Prograf follow levels PCP prophylaxis started Dapsone (2) Hypertension ICD Codes: I10 - Essential (primary) hypertension Status: Acute Plan: Controlled on medication Problem Qualifiers (1) Hypertension: Qualified Codes: I10 - Essential (primary) hypertension John Colmenares MD Sep 10, 2017 12:51
--- NOTE | 2017-09-10 13:11 | HHI.PR ---
Subjective Remarks Status post renal transplant Platt with bloody urine. 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 No fever or chills overnight. No nausea vomiting diarrhea or constipation. Feels very tired. Has no appetite much. Pain at the surgical site. Objective Vitals Vital Signs Date Time Temp Pulse Resp B/P (MAP) Pulse Ox O2 Delivery O2 Flow Rate FiO2 09/10/17 12:44 95 21 09/10/17 12:01 85 09/10/17 11:30 98.0 77 18 150/90 (110) 96 09/10/17 11:00 78 09/10/17 10:00 75 09/10/17 09:00 74 09/10/17 08:01 98.4 88 18 146/89 (108) 94 09/10/17 08:00 88 09/10/17 07:00 66 09/10/17 06:00 66 09/10/17 06:00 16 09/10/17 05:00 71 09/10/17 04:00 83 09/10/17 03:05 98.4 74 18 141/82 (101) 96 09/10/17 03:02 73 09/10/17 02:00 73 09/10/17 01:00 75 09/10/17 00:00 70 09/09/17 23:00 98.3 70 18 131/79 (96) 96 09/09/17 23:00 70 09/09/17 22:00 18 09/09/17 22:00 66 09/09/17 21:00 68 09/09/17 20:00 78 09/09/17 20:00 98.4 78 18 124/74 (91) 95 09/09/17 19:00 84 09/09/17 18:01 80 09/09/17 17:00 96 09/09/17 16:00 72 09/09/17 15:01 98.3 70 18 139/76 (97) 98 09/09/17 15:01 76 09/09/17 14:00 78 09/09/17 14:00 16 I/O 09/09/17 09/09/17 09/09/17 09/10/17 09/10/17 09/10/17 07:00 15:00 23:00 07:00 15:00 23:00 Intake Total 140 ml 630 ml 2330 ml 15 ml Output Total 1315 ml 427 ml 645 ml 1020 ml Balance -1175 ml 203 ml 1685 ml -1005 ml Intake Oral 100 ml 480 ml 720 ml 15 ml IV Total 40 ml 150 ml 1610 ml Output Urine Total 1275 ml 427 ml 545 ml 975 ml Drainage Total 40 ml 100 ml 45 ml Result Diagram: 09/10/17 0455 09/10/17 0455 Imaging Last Impressions Renal Ultrasound 09/09/17 0000 Signed Impressions: Service Date/Time: Saturday, September 09, 2017 07:42 - CONCLUSION: Stable and unremarkable followup ultrasound of the right lower quadrant transplanted kidney. No evidence of hydronephrosis. Demetrio Kaye MD Chest X-Ray 09/08/17 0000 Signed Impressions: Service Date/Time: Friday, September 08, 2017 15:10 - CONCLUSION: Line in good position. Kadeem Alexis MD FACR Objective Remarks GENERAL: This is a well-nourished, well-developed patient, in no apparent distress. CARDIOVASCULAR: Regular rate and regular rhythm without murmurs, gallops, or rubs. RESPIRATORY: Clear to auscultation. Breath sounds equal bilaterally. No wheezes , rales, or rhonchi. GASTROINTESTINAL: Abdomen soft, tender in the right side at the surgical site, dressing c/d/i, nondistended. Normal, active bowel sounds MUSCULOSKELETAL: Extremities without clubbing, cyanosis, or edema. NEURO: Alert & Oriented x4 to person, place, time, situation. Moves all ext x4 Procedures Complex reconstruction of right cadaveric kidney; Right pelvic donor renal transplant. by Dr Castaneda and Dr Caba on 09/08/17 A/P Problem List: (1) ESRD (end stage renal disease) on dialysis ICD Code: N18.6 - End stage renal disease; Z99.2 - Dependence on renal dialysis Status: Acute (2) Hypertension ICD Code: I10 - Essential (primary) hypertension Status: Acute Assessment and Plan ESRD on dialysis admitted for renal transplant Complex reconstruction of right cadaveric kidney. Right pelvic donor renal transplant by Dr Castaneda and Dr Caba on 09/08/[address] Darrian deluca. Resumed home medications Avoid nephrotoxins H/H stable. Monitor Kidney indices not improving Meds per kidney transplant team Hyperkalemia received Kayexalate, monitor. Other chronic conditions appears stable, monitor. Resumed home medications Hep C positive Follow-up as outpatient DVT prophylaxis: SCDs Discharge Planning s/p kidney transplant, DC when cleared by surgeon and nephro discussed with the patient, nurse Problem Qualifiers (1) Hypertension: Qualified Codes: I10 - Essential (primary) hypertension Isabella Teague MD Sep 10, 2017 13:11
[2017-09-10 16:11] LABS: ALBUMIN 3.1 GM/DL (3.4-5.0); AST (GOT) 32 U/L (15-37); BICARBONATE 23.4 MEQ/L (21.0-32.0); BLOOD UREA NITROGEN 77 MG/DL (7-18); CALCIUM 8.7 MG/DL (8.5-10.1); CHLORIDE 100 MEQ/L (98-107); GLOMERULAR FILTRATION RATE 7 ML/MIN (>89); GLUCOSE,RANDOM 107 MG/DL (74-106); SODIUM (NA) 134 MEQ/L (136-145)
[2017-09-10 16:13] LABS: ALT (GPT) 15 U/L (12-78)
[2017-09-10 16:14] LABS: ALKALINE PHOSPHATASE 121 U/L (45-117); TOTAL BILIRUBIN ADULT 0.4 MG/DL (0.2-1.0); TOTAL PROTEIN 7.2 GM/DL (6.4-8.2)
[2017-09-10 16:19] LABS: CREATININE 10.27 MG/DL (0.60-1.30)
[2017-09-10] MEDS ORDERED: BISACODYL EC 5 MG TABEC PO PRN (17:15)
[2017-09-10] MEDS: DEXT 5%-NACL 0.45% 1000 ML INJ 1,000 ML IV SCH (18:04)
[2017-09-11] VITALS (28 sets, daily range): BP systolic 125–134; BP diastolic 71–82; PULSE 68–86; RESP 16–18; TEMP 98.1–98.6; O2SAT 92–100
[2017-09-11 05:15] LABS: AUTOMATED NEUTROPHIL # 4.9 TH/MM3 (1.8-7.7); BASOPHIL % 0.4 % (0.0-2.0); EOSINOPHIL % 0.1 % (0.0-4.0); HEMATOCRIT 29.5 % (39.0-51.0); LYMPH % 1.1 % (9.0-44.0); LYMPHOCYTE # 0.1 TH/MM3 (1.0-4.8); MEAN CELL VOLUME 94.3 FL (80.0-100.0); MEAN CORPUSCULAR HEMOGLOBIN 32.1 PG (27.0-34.0); MEAN CORPUSCULAR HGB CONC 34.1 % (32.0-36.0); MEAN PLATELET VOLUME 8.2 FL (7.0-11.0); MONO % 4.4 % (0.0-8.0); MONOCYTE # 0.2 TH/MM3 (0-0.9); PLATELET COUNT 88 TH/MM3 (150-450); RED BLOOD COUNT 3.13 MIL/MM3 (4.50-5.90); RED CELL DISTRIBUTION WIDTH 14.4 % (11.6-17.2); WHITE BLOOD COUNT 5.2 TH/MM3 (4.0-11.0)
[2017-09-11 05:35] LABS: BICARBONATE 23.6 MEQ/L (21.0-32.0); CREATININE 9.66 MG/DL (0.60-1.30)
[2017-09-11] MEDS: PCA - TOTAL MG DILAUDID DELIVERED PER SHIFT OTHER SCH ×2 (06:00→14:00)
[2017-09-11] MEDS: MYCOPHENOLATE MOFETIL 500 MG TAB PO SCH ×2 (06:21→17:51)
[2017-09-11] MEDS: TACROLIMUS 1 MG CAP PO SCH ×2 (06:21→17:51)
--- NOTE | 2017-09-11 07:46 | HHI.PR ---
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 Passing gas, did not have a bowel movement yet, Says pain is controlled by medications. No fever chills. No cough. Rocklin nauseated, did not vomit. Platt in, with bloody urine , clearing up. Objective Vitals Vital Signs Date Time Temp Pulse Resp B/P (MAP) Pulse Ox O2 Delivery O2 Flow Rate FiO2 09/11/17 07:42 92 21 09/11/17 06:00 73 09/11/17 06:00 18 09/11/17 05:00 86 09/11/17 04:00 72 09/11/17 03:00 69 09/11/17 03:00 98.2 69 18 125/76 (92) 99 09/11/17 02:00 69 09/11/17 01:00 70 09/11/17 00:00 98.4 69 18 134/82 (99) 100 09/11/17 00:00 71 09/10/17 23:00 74 09/10/17 22:00 85 09/10/17 22:00 18 09/10/17 21:03 96 21 09/10/17 21:00 74 09/10/17 20:00 98.8 95 19 137/86 (103) 97 09/10/17 20:00 95 09/10/17 19:00 82 09/10/17 18:01 81 09/10/17 17:00 88 09/10/17 16:00 92 09/10/17 15:30 98.0 88 18 156/96 (116) 99 09/10/17 15:00 78 09/10/17 14:00 79 09/10/17 13:00 83 09/10/17 12:44 95 21 09/10/17 12:01 85 09/10/17 11:30 98.0 77 18 150/90 (110) 96 09/10/17 11:00 78 09/10/17 10:00 75 09/10/17 09:00 74 09/10/17 08:01 98.4 88 18 146/89 (108) 94 09/10/17 08:00 88 I/O 09/10/17 09/10/17 09/10/17 09/11/17 09/11/17 09/11/17 07:00 15:00 23:00 07:00 15:00 23:00 Intake Total 15 ml 150 ml 2200 ml 960 ml Output Total 1020 ml 1630 ml 1015 ml Balance -1005 ml 150 ml 570 ml -55 ml Intake Oral 15 ml 720 ml 480 ml IV Total 150 ml 1480 ml 480 ml Output Urine Total 975 ml 1600 ml 985 ml Drainage Total 45 ml 30 ml 30 ml # Bowel Movements 0 0 Result Diagram: 09/11/17 0455 09/11/17 0455 Imaging Last Impressions Renal Ultrasound 09/09/17 0000 Signed Impressions: Service Date/Time: Saturday, September 09, 2017 07:42 - CONCLUSION: Stable and unremarkable followup ultrasound of the right lower quadrant transplanted kidney. No evidence of hydronephrosis. Demetrio Kaye MD Chest X-Ray 09/08/17 0000 Signed Impressions: Service Date/Time: Friday, September 08, 2017 15:10 - CONCLUSION: Line in good position. Kadeem Alexis MD FACR Objective Remarks GENERAL: This is a well-nourished, well-developed patient, in no apparent distress. CARDIOVASCULAR: Regular rate and regular rhythm without murmurs, gallops, or rubs. RESPIRATORY: Clear to auscultation. Breath sounds equal bilaterally. No wheezes , rales, or rhonchi. GASTROINTESTINAL: Abdomen soft, tender in the right side at the surgical site, dressing c/d/i, nondistended. Normal, active bowel sounds MUSCULOSKELETAL: Extremities without clubbing, cyanosis, or edema. NEURO: Alert & Oriented x4 to person, place, time, situation. Moves all ext x4 Procedures Complex reconstruction of right cadaveric kidney; Right pelvic donor renal transplant. by Dr Castaneda and Dr Caba on 09/08/17 A/P Problem List: (1) ESRD (end stage renal disease) on dialysis ICD Code: N18.6 - End stage renal disease; Z99.2 - Dependence on renal dialysis Status: Acute (2) Hypertension ICD Code: I10 - Essential (primary) hypertension Status: Acute Assessment and Plan ESRD on dialysis admitted for renal transplant S/p Complex reconstruction of right cadaveric kidney. Right pelvic donor renal transplant by Dr Castaneda and Dr Caba on 09/08/[address] Darrian deluca. Resumed home medications Avoid nephrotoxins H/H stable. Monitor Kidney indices improving Meds per kidney transplant team. Received thymo, last dose 09/11/17. On low dose prograf. Encourage IS/ ambulation. Hyperkalemia received Kayexalate, monitor. Other chronic conditions appears stable, monitor. Continue home medications as appropriate Hep C positive Follow-up as outpatient DVT prophylaxis: SCDs Discharge Planning S/p kidney transplant, DC when cleared by surgeon and nephro Discussed with the patient, family at bedside, Dr. Caba the surgeon Problem Qualifiers (1) Hypertension: Qualified Codes: I10 - Essential (primary) hypertension Isabella Teague MD Sep 11, 2017 07:46
[2017-09-11 08:17] LABS: OVALOCYTES 1+ (NORMAL)
[2017-09-11] MEDS ORDERED: THYMOGLOBULIN ANAPYLAXIS KIT MISC XX PRN (09:00)
--- NOTE | 2017-09-11 09:05 | HHI.PR ---
Subjective Remarks No new c/o. Denies nausea/ vomiting. Maisha po well. Objective Vital Signs Date Time Temp Pulse Resp B/P (MAP) Pulse Ox O2 Delivery O2 Flow Rate FiO2 09/11/17 07:42 92 21 18 07:35 83 18 07:35 98.6 83 18 129/71 (90) 95 09/11/17 06:00 73 09/11/17 06:00 18 09/11/17 05:00 86 09/11/17 04:00 72 09/11/17 03:00 69 09/11/17 03:00 98.2 69 18 125/76 (92) 99 09/11/17 02:00 69 09/11/17 01:00 70 09/11/17 00:00 98.4 69 18 134/82 (99) 100 09/11/17 00:00 71 09/10/17 23:00 74 09/10/18 22:00 85 09/10/18 22:00 18 18 21:03 96 21 18 21:00 74 18 20:00 98.8 95 19 137/86 (103) 97 18 20:00 95 09/10/18 19:00 82 09/10/18 18:01 81 09/10/18 17:00 88 09/10/18 16:00 92 18 15:30 98.0 88 18 156/96 (116) 99 18 15:00 78 09/10/18 14:00 79 09/10/18 13:00 83 18 12:44 95 21 18 12:01 85 18/18 11:30 98.0 77 18 150/90 (110) 96 18 11:00 78 18/18 10:00 75 I/O 18/18 2/18/18 2/18/18 2//18 2//18 2//18 07:00 15:00 23:00 07:00 15:00 23:00 Intake Total 15 ml 150 ml 2200 ml 960 ml Output Total 1020 ml 1630 ml 1015 ml Balance -1005 ml 150 ml 570 ml -55 ml Intake Oral 15 ml 720 ml 480 ml IV Total 150 ml 1480 ml 480 ml Output Urine Total 975 ml 1600 ml 985 ml Drainage Total 45 ml 30 ml 30 ml # Bowel Movements 0 0 Result Diagram: 09/11/1745409/11/17454 Objective Remarks Resp-CTAB CV-s1s2 Abd-+ BS, soft, NT/ ND. Wound CDI without EFT. Minimal-mod draining on dressing from FRANCHESCA site Ext-Calves soft NT B Assessment and Plan Problem List: (1) Hypertension ICD Codes: I10 - Essential (primary) hypertension Status: Acute (2) ESRD (end stage renal disease) on dialysis ICD Codes: N18.6 - End stage renal disease; Z99.2 - Dependence on renal dialysis Status: Acute Assessment and Plan 47 yom with CKD-5 due to Htn. Hx of FSGS. S/p RLQ brain cadaveric renal transplant. POD2 Good UOP. Creatinine seems to have plateaued Discontinue IVF Last dose of thymo today. On low dose prograf. Encourage IS/ ambulation. B SCDs in place Problem Qualifiers (1) Hypertension: Qualified Codes: I10 - Essential (primary) hypertension Von Caba Jr., MD Sep 11, 2017 09:05
[2017-09-11] MEDS: CINACALCET HYDROCHLORIDE 30 MG TAB PO SCH (09:18)
[2017-09-11] MEDS: PANTOPRAZOLE SOD 40 MG DELAYED RELEASE TAB PO SCH (09:20)
[2017-09-11] MEDS: DOCUSATE SODIUM 100 MG CAP PO SCH ×2 (09:20→20:31)
[2017-09-11] MEDS: VITAMIN B CMPLX/VITC/FOLIC AC CAP PO SCH (09:20)
[2017-09-11] MEDS: SEVELAMER CARBONATE 800 MG TAB PO SCH ×2 (09:20→17:51)
[2017-09-11] MEDS: FUROSEMIDE 40 MG TAB PO SCH (09:21)
[2017-09-11] MEDS: ALLOPURINOL 100 MG TAB PO SCH (09:21)
[2017-09-11] MEDS: CALCIUM CARBONATE 500 MG CHEWABLE TAB CHEW SCH ×2 (09:22→17:04)
[2017-09-11] MEDS: DAPSONE 25 MG TAB PO SCH (09:23)
[2017-09-11] MEDS: SODIUM CHLORIDE 0.9% FLUSH 10 ML FLUSH IV FLUSH SCH ×2 (09:31→20:32)
--- NOTE | 2017-09-11 10:36 | HHI.NPPN ---
Subjective History of Present Illness 47 year old male with ESRD admitted for donor kidney transplant Objective Data Data Vital Signs Date Time Temp Pulse Resp B/P (MAP) Pulse Ox O2 Delivery O2 Flow Rate FiO2 09/11/17 07:42 92 21 09/11/17 07:35 83 09/11/17 07:35 98.6 83 18 129/71 (90) 95 09/11/17 06:00 73 09/11/17 06:00 18 09/11/17 05:00 86 09/11/17 04:00 72 09/11/17 03:00 69 09/11/17 03:00 98.2 69 18 125/76 (92) 99 09/11/17 02:00 69 09/11/17 01:00 70 09/11/17 00:00 98.4 69 18 134/82 (99) 100 09/11/17 00:00 71 09/10/17 23:00 74 09/10/17 22:00 85 09/10/17 22:00 18 09/10/17 21:03 96 21 09/10/17 21:00 74 09/10/17 20:00 98.8 95 19 137/86 (103) 97 09/10/17 20:00 95 09/10/17 19:00 82 09/10/17 18:01 81 09/10/17 17:00 88 09/10/17 16:00 92 09/10/17 15:30 98.0 88 18 156/96 (116) 99 09/10/17 15:00 78 09/10/17 14:00 79 09/10/17 13:00 83 09/10/17 12:44 95 21 09/10/17 12:01 85 09/10/17 11:30 98.0 77 18 150/90 (110) 96 09/10/17 11:00 78 -: 09/11/17 0455 09/11/17 0455 Physical Exam General Appearance: Well Developed, Well Nourished Neck Neck Exam: Neck Supple Pulmonary Resp Exam: Clear Bilaterally, Breath Sounds Equal Cardiology CV Exam: Regular, Normal Sinus Rhythm Gastrointestinal/Abdomen GI Exam: Soft (postsurgical incision right lower abdomen) Extremeties Extremities Exam: No Edema Neurologic Neuro Exam: Sedated Assessment/Plan Problem List: (1) ESRD (end stage renal disease) on dialysis ICD Codes: N18.6 - End stage renal disease; Z99.2 - Dependence on renal dialysis Status: Acute Plan: Patient is doing well Transplant kidney rt now passing more urine, , Cr slow to decline Urine output good Monitor electrolytes Continue with Thymoglobulin Prograf low dose follow levels PCP prophylaxis on Dapsone (2) Hypertension ICD Codes: I10 - Essential (primary) hypertension Status: Acute Plan: Controlled on medication Problem Qualifiers (1) Hypertension: Qualified Codes: I10 - Essential (primary) hypertension John Colmenares MD Sep 11, 2017 10:36
[2017-09-11] MEDS ORDERED: diphenhydrAMINE HCL 50 MG CAP PO ONE (11:30)
[2017-09-11] MEDS ORDERED: methylPREDNISolone SOD SUCC 125 MG/2 ML VIAL IV PUSH ONE (11:30)
[2017-09-11] MEDS ORDERED: ACETAMINOPHEN 325 MG TAB PO ONE (11:30)
[2017-09-11] MEDS ORDERED: SODIUM CHLORID 0.9% IV-CENTRAL ONE (12:00)
[2017-09-11] MEDS ORDERED: ANTITHYMOCYTE GLOB IV-CENTRAL ONE (12:00)
[2017-09-11] MEDS ORDERED: BISACODYL EC 5 MG TABEC PO PRN (15:15)
[2017-09-11] MEDS ORDERED: BISACODYL 10 MG SUPP RECTAL PRN (15:15)
[2017-09-11] MEDS: BISACODYL 10 MG SUPP RECTAL PRN (17:57)
[2017-09-11] MEDS: SUCROFERRIC OXYHYDROXIDE 500 MG PO SCH (18:30)
[2017-09-11] MEDS: oxyCODONE/ACETAMINOPHEN 5 MG/325 MG TAB PO PRN (20:32)
[2017-09-11] MEDS: MORPHINE SULFATE 2 MG/ML INJ IV PUSH PRN (20:55)
[2017-09-12] VITALS (28 sets, daily range): BP systolic 113–149; BP diastolic 64–81; PULSE 63–92; RESP 14–18; TEMP 98–100.5; O2SAT 94–100
[2017-09-12 05:05] LABS: AUTOMATED NEUTROPHIL # 2.1 TH/MM3 (1.8-7.7); BASOPHIL % 1.4 % (0.0-2.0); HEMATOCRIT 28.3 % (39.0-51.0); HEMOGLOBIN 9.6 GM/DL (13.0-17.0); LYMPH % 4.4 % (9.0-44.0); LYMPHOCYTE # 0.1 TH/MM3 (1.0-4.8); MEAN CELL VOLUME 94.1 FL (80.0-100.0); MEAN PLATELET VOLUME 8.7 FL (7.0-11.0); MONO % 6.3 % (0.0-8.0); MONOCYTE # 0.1 TH/MM3 (0-0.9); NEUT % 87.9 % (16.0-70.0); PLATELET COUNT 85 TH/MM3 (150-450); RED CELL DISTRIBUTION WIDTH 14.2 % (11.6-17.2); WHITE BLOOD COUNT 2.4 TH/MM3 (4.0-11.0)
[2017-09-12 05:17] LABS: BICARBONATE 24.7 MEQ/L (21.0-32.0); CALCIUM 7.8 MG/DL (8.5-10.1); CREATININE 8.56 MG/DL (0.60-1.30); MAGNESIUM 2.1 MG/DL (1.5-2.5); PHOSPHORUS 5.4 MG/DL (2.5-4.9)
[2017-09-12] MEDS: TACROLIMUS 1 MG CAP PO SCH ×2 (06:10→18:14)
[2017-09-12] MEDS: MYCOPHENOLATE MOFETIL 500 MG TAB PO SCH ×2 (06:10→18:15)
[2017-09-12] MEDS: oxyCODONE/ACETAMINOPHEN 5 MG/325 MG TAB PO PRN ×3 (06:10→20:26)
[2017-09-12] MEDS: CALCIUM CARBONATE 500 MG CHEWABLE TAB CHEW SCH ×2 (08:37→16:00)
[2017-09-12] MEDS: SODIUM CHLORIDE 0.9% FLUSH 10 ML FLUSH IV FLUSH SCH ×2 (08:37→20:26)
[2017-09-12] MEDS: CINACALCET HYDROCHLORIDE 30 MG TAB PO SCH (08:37)
[2017-09-12] MEDS: SEVELAMER CARBONATE 800 MG TAB PO SCH (08:38)
[2017-09-12] MEDS: VITAMIN B CMPLX/VITC/FOLIC AC CAP PO SCH (08:39)
[2017-09-12] MEDS: PANTOPRAZOLE SOD 40 MG DELAYED RELEASE TAB PO SCH (08:39)
[2017-09-12] MEDS: DAPSONE 25 MG TAB PO SCH (08:39)
[2017-09-12] MEDS: DOCUSATE SODIUM 100 MG CAP PO SCH ×2 (08:39→20:26)
[2017-09-12] MEDS: ALLOPURINOL 100 MG TAB PO SCH (08:40)
--- NOTE | 2017-09-12 08:44 | HHI.PR ---
Subjective Remarks WBCs dropped on neutropenic isolation. Patient has no fevers or chills. No n/v/d. Pain is controlled now on PO meds. Objective Vitals Vital Signs Date Time Temp Pulse Resp B/P (MAP) Pulse Ox O2 Delivery O2 Flow Rate FiO2 09/12/17 07:31 18 09/12/17 06:01 71 09/12/17 05:00 63 09/12/17 04:00 70 09/12/17 03:15 72 18 114/64 (81) 96 09/12/17 03:00 64 09/12/17 02:00 68 09/12/17 01:00 68 09/12/17 00:00 69 09/11/17 23:15 98.1 68 18 130/75 (93) 97 09/11/17 23:00 72 09/11/17 22:00 72 09/11/17 21:00 70 09/11/17 20:31 94 21 09/11/17 20:00 76 09/11/17 19:45 98.3 77 18 129/72 (91) 99 09/11/17 19:00 81 09/11/17 18:00 78 09/11/17 17:00 78 09/11/17 16:00 74 09/11/17 16:00 98.2 76 18 132/78 (96) 94 09/11/17 15:00 80 09/11/17 14:00 86 09/11/17 14:00 18 09/11/17 13:00 76 09/11/17 12:00 78 09/11/17 12:00 98.4 78 16 126/75 (92) 94 09/11/17 11:00 82 09/11/17 10:00 70 09/11/17 09:00 76 I/O 09/11/17 09/11/17 09/11/17 09/12/17 09/12/17 09/12/17 07:00 15:00 23:00 07:00 15:00 23:00 Intake Total 960 ml 1320 ml 1688 ml 480 ml Output Total 1015 ml 675 ml 1680 ml 875 ml Balance -55 ml 645 ml 8 ml -395 ml Intake Oral 480 ml 1320 ml 1200 ml 480 ml IV Total 480 ml 488 ml Output Urine Total 985 ml 675 ml 1650 ml 850 ml Drainage Total 30 ml 30 ml 25 ml # Bowel Movements 0 0 0 Result Diagram: 09/12/17 0433 09/12/17 0433 Imaging Last Impressions Renal Ultrasound 09/09/17 0000 Signed Impressions: Service Date/Time: Saturday, September 09, 2017 07:42 - CONCLUSION: Stable and unremarkable followup ultrasound of the right lower quadrant transplanted kidney. No evidence of hydronephrosis. Demetrio Kaye MD Chest X-Ray 09/08/17 0000 Signed Impressions: Service Date/Time: Friday, September 08, 2017 15:10 - CONCLUSION: Line in good position. Kadeem Alexis MD FACR Objective Remarks GENERAL: This is a well-nourished, well-developed patient, in no apparent distress. CARDIOVASCULAR: Regular rate and regular rhythm without murmurs, gallops, or rubs. RESPIRATORY: Clear to auscultation. Breath sounds equal bilaterally. No wheezes , rales, or rhonchi. GASTROINTESTINAL: Abdomen soft, tender in the right side at the surgical site, dressing c/d/i, nondistended. Normal, active bowel sounds MUSCULOSKELETAL: Extremities without clubbing, cyanosis, or edema. NEURO: Alert & Oriented x4 to person, place, time, situation. Moves all ext x4 Procedures Complex reconstruction of right cadaveric kidney; Right pelvic donor renal transplant. by Dr Castaneda and Dr Caba on 09/08/17 A/P Problem List: (1) ESRD (end stage renal disease) on dialysis ICD Code: N18.6 - End stage renal disease; Z99.2 - Dependence on renal dialysis Status: Acute (2) Hypertension ICD Code: I10 - Essential (primary) hypertension Status: Acute Assessment and Plan ESRD on dialysis admitted for renal transplant S/p Complex reconstruction of right cadaveric kidney. Right pelvic donor renal transplant by Dr Castaneda and Dr Caba on 09/08/[address] Darrian deluca. Resumed home medications Avoid nephrotoxins H/H stable. Monitor Kidney indices improving Meds per kidney transplant team. Received thymo, last dose 09/11/17. On low dose prograf. On prophylactic meds bactrim, valacyclovir Encourage IS/ ambulation. Hyperkalemia received Kayexalate, monitor. Other chronic conditions appears stable, monitor. Continue home medications as appropriate Hep C positive Follow-up as outpatient DVT prophylaxis: SCDs Discharge Planning S/p kidney transplant, DC when cleared by surgeon and nephro Discussed with the patient, family at bedside, Dr. Caba the surgeon Problem Qualifiers (1) Hypertension: Qualified Codes: I10 - Essential (primary) hypertension Isabella Teague MD Sep 12, 2017 08:44
[2017-09-12] MEDS: SUCROFERRIC OXYHYDROXIDE 500 MG PO SCH ×3 (08:48→18:15)
[2017-09-12] MEDS: NYSTATIN SUSP 500,000 U/5 ML CUP SWISH-SWAL SCH ×4 (09:15→20:26)
--- NOTE | 2017-09-12 12:39 | HHI.PR ---
Subjective Remarks No new c/o. Maisha po well. Voiding well. Objective Vital Signs Date Time Temp Pulse Resp B/P (MAP) Pulse Ox O2 Delivery O2 Flow Rate FiO2 09/12/17 12:00 76 09/12/17 11:00 98.0 71 14 132/79 (96) 100 09/12/17 11:00 71 09/12/17 10:00 87 09/12/17 09:00 72 09/12/17 08:57 94 21 09/12/17 08:00 74 09/12/17 07:31 18 09/12/17 07:15 98.4 72 16 113/69 (84) 96 09/12/17 07:00 71 09/12/17 06:01 71 09/12/17 05:00 63 09/12/17 04:00 70 09/12/17 03:15 72 18 114/64 (81) 96 09/12/17 03:00 64 09/12/17 02:00 68 09/12/17 01:00 68 09/12/17 00:00 69 09/11/17 23:15 98.1 68 18 130/75 (93) 97 09/11/17 23:00 72 18 22:00 72 09/11/17 21:00 70 09/11/17 20:31 94 21 09/11/17 20:00 76 09/11/17 19:45 98.3 77 18 129/72 (91) 99 09/11/17 19:00 81 18 18:00 78 09/11/17 17:00 78 09/11/17 16:00 74 09/11/17 16:00 98.2 76 18 132/78 (96) 94 18 15:00 80 09/11/17 14:00 86 18 14:00 18 18 13:00 76 I/O 09/11/1709/11/18 09/11/18 //09/12/17 09/12/17 07:00 15:00 23:00 07:00 15:00 23:00 Intake Total 960 ml 1320 ml 1688 ml 480 ml Output Total 1015 ml 675 ml 1680 ml 875 ml Balance -55 ml 645 ml 8 ml -395 ml Intake Oral 480 ml 1320 ml 1200 ml 480 ml IV Total 480 ml 488 ml Output Urine Total 985 ml 675 ml 1650 ml 850 ml Drainage Total 30 ml 30 ml 25 ml # Bowel Movements 0 0 0 Result Diagram: 09/12/1743209/12/17432 Objective Remarks Resp-CTAB CV-s1s2 Abd-+ BS, soft, NT/ ND. Wound with very minimal stining on dressing. Some minimal drainage from FRANCHESCA puncture site Ext-Calves soft NT B. No peripheral edema noted Assessment and Plan Problem List: (1) Hypertension ICD Codes: I10 - Essential (primary) hypertension Status: Acute (2) ESRD (end stage renal disease) on dialysis ICD Codes: N18.6 - End stage renal disease; Z99.2 - Dependence on renal dialysis Status: Acute Assessment and Plan 47 yom with CKD-5 due to Htn. Hx of FSGS. S/p RLQ brain cadaveric renal transplant. POD4 Good UOP. Creatinine slightly improved Leukopenia noted. On reverse precautions. Thymo course completed yesterday. Hold valcyte. Monitor for now. Weight increased from admit. Diurese On low dose prograf. Encourage IS/ ambulation. B SCDs in place Problem Qualifiers (1) Hypertension: Qualified Codes: I10 - Essential (primary) hypertension Von Caba Jr., MD Sep 12, 2017 12:39
[2017-09-12] MEDS ORDERED: FUROSEMIDE 40 MG/4 ML VIAL IV PUSH ONE (13:15)
--- NOTE | 2017-09-12 13:46 | HHI.NPPN ---
Subjective History of Present Illness 47 year old male with ESRD admitted for donor kidney transplant Objective Data Data Vital Signs Date Time Temp Pulse Resp B/P (MAP) Pulse Ox O2 Delivery O2 Flow Rate FiO2 09/12/17 13:00 72 09/12/17 12:00 76 09/12/17 11:00 98.0 71 14 132/79 (96) 100 09/12/17 11:00 71 09/12/17 10:00 87 09/12/17 09:00 72 09/12/17 08:57 94 21 09/12/17 08:00 74 09/12/17 07:31 18 09/12/17 07:15 98.4 72 16 113/69 (84) 96 09/12/17 07:00 71 09/12/17 06:01 71 09/12/17 05:00 63 09/12/17 04:00 70 09/12/17 03:15 72 18 114/64 (81) 96 09/12/17 03:00 64 09/12/17 02:00 68 09/12/17 01:00 68 09/12/17 00:00 69 09/11/17 23:15 98.1 68 18 130/75 (93) 97 09/11/17 23:00 72 09/11/17 22:00 72 09/11/17 21:00 70 09/11/17 20:31 94 21 09/11/17 20:00 76 09/11/17 19:45 98.3 77 18 129/72 (91) 99 09/11/17 19:00 81 09/11/17 18:00 78 09/11/17 17:00 78 09/11/17 16:00 74 09/11/17 16:00 98.2 76 18 132/78 (96) 94 09/11/17 15:00 80 09/11/17 14:00 86 09/11/17 14:00 18 -: 09/12/17 0433 09/12/17 0433 Physical Exam General Appearance: Well Developed, Well Nourished Neck Neck Exam: Neck Supple Pulmonary Resp Exam: Clear Bilaterally, Breath Sounds Equal Cardiology CV Exam: Regular, Normal Sinus Rhythm Gastrointestinal/Abdomen GI Exam: Soft (postsurgical incision right lower abdomen) Extremeties Extremities Exam: No Edema Neurologic Neuro Exam: Sedated Assessment/Plan Problem List: (1) ESRD (end stage renal disease) on dialysis ICD Codes: N18.6 - End stage renal disease; Z99.2 - Dependence on renal dialysis Status: Acute Plan: Patient is doing well Transplant kidney rt now passing more urine, , Cr better Urine output good Monitor electrolytes On Tacrolimus Prograf low dose follow levels PCP prophylaxis on Dapsone Valcyte held as WBC 2.4 hold Renvela as ARF resolving and PO4 dropping (2) Hypertension ICD Codes: I10 - Essential (primary) hypertension Status: Acute Plan: Controlled on medication Problem Qualifiers (1) Hypertension: Qualified Codes: I10 - Essential (primary) hypertension John Colmenares MD Sep 12, 2017 13:46
--- NOTE | 2017-09-12 15:12 | PHATRASOAP ---
Date/Time: 09/12/17 8892 Pharmacist daily assessment of kidney transplant patient: S: Kidney transplant Post op day #4 O: Wt: 114 kg Allergies: NKA A: Vitals: BP =130s/70s, HR = 60s Electrolytes: Na= 136, K=3.7, Ca=7.8, albumin =3.1, Phosphorus=5.4, Mg=2.1 SCR= 8.56 WBC=2.4 HGB=9.6 PLTS=85 [id number] BM = 0 Tacrolimus level 09/11=1.3 Hospital Medications: Thymoglobulin 160mg IV on 09/09, 106mg on 09/10,54mg on 09/11 total received = 320mg = 2.8mg/kg) Cellcept 1000 mg po bid Tacrolimus 2mg PO BID Percocet 5/325mg po q6h prn Docusate 100mg po bid Calcium carbonate 500mg po bid -Patient had received 3 doses of Thymoglobulin with total dose to date 2.3mg/kg, thus completing the induction phase - Tacrolimus level low per 09/11 labs, might need to increase dose - no BM, might consider using the Bisacodyl and switching colcae to pericolace -Prophylaxis meds missing the Nystatin, consider starting Nystatin -Ambulating will assist better graft function and more improved UOP P: -Induction phase completed - might consider increasing Tacrolimus dose - Nystatin swish and swallow TID -Encourage ambulating Pharmacist: Devika Armendariz PharmD Signature on file
[2017-09-12] MEDS: MORPHINE SULFATE 2 MG/ML INJ IV PUSH PRN (16:29)
[2017-09-12 18:33] LABS: CREATININE 7.85 MG/DL (0.60-1.30)
[2017-09-12] MEDS ORDERED: POTASSIUM CHLORIDE 20 MEQ CONTROLLED RELEASE TAB PO ONE (20:00)
[2017-09-12] MEDS ORDERED: CALCIUM GLUCONATE INJ 1 GM in SODIUM CHLORIDE 0.9% INJ 100 ML IV ONE (20:30)
[2017-09-13] VITALS (33 sets, daily range): BP systolic 125–157; BP diastolic 75–89; PULSE 68–98; RESP 16–18; TEMP 98.2–101.9; O2SAT 93–99
[2017-09-13] MEDS: oxyCODONE/ACETAMINOPHEN 5 MG/325 MG TAB PO PRN ×4 (03:43→22:36)
[2017-09-13 04:15] LABS: AMORPHOUS SEDIMENT, URINE RARE; BACTERIA, URINE FEW /hpf; BILIRUBIN, URINE NEG (NEG); BLOOD, URINE LARGE (NEG); GLUCOSE,URINE NEG (NEG); KETONE, URINE NEG (NEG); MUCUS URINE FEW /lpf (OCC); NITRITE,URINE NEG (NEG); PH, URINE 5.5 (5.0-8.5); URINE COLOR YELLOW (YELLW/STRAW); URINE LEUKOCYTE ESTERASE NEG (NEG)
--- NOTE | 2017-09-13 04:55 | RADRPT ---
EXAM DATE/TIME: 09/13/2017 03:54 [facility] COMPARISON: CHEST SINGLE AP, September 08, 2017, 15:10. INDICATIONS : Short of breath. MEDICAL HISTORY : None. SURGICAL HISTORY : Kidney Transplant. ENCOUNTER: Subsequent ACUITY: 4 - 6 days PAIN SCORE: 0/10 LOCATION: Bilateral chest FINDINGS: A single AP portable semierect view of the chest was obtained and again demonstrates moderate cardiom egaly. There is no perihilar edema. There are no confluent infiltrates or effusions. The right internal medicine specialist al jugular central venous line remains in place. The bony thorax is stable in appearance with degener ative changes in the thoracic spine. CONCLUSION: 1. Moderate cardiomegaly with no evidence of pulmonary edema. 2. The right internal jugular central venous line remains in place. Juwan Morrison MD on September 13, 2017 at 4:53 Board Certified Radiologist. This report was verified electronically.
[2017-09-13 06:00] LABS: AUTOMATED NEUTROPHIL # 4.7 TH/MM3 (1.8-7.7); BASOPHIL % 0.1 % (0.0-2.0); EOSINOPHIL % 0.3 % (0.0-4.0); HEMATOCRIT 29.9 % (39.0-51.0); HEMOGLOBIN 10.1 GM/DL (13.0-17.0); LYMPH % 1.7 % (9.0-44.0); LYMPHOCYTE # 0.1 TH/MM3 (1.0-4.8); MEAN CORPUSCULAR HEMOGLOBIN 31.8 PG (27.0-34.0); MEAN CORPUSCULAR HGB CONC 33.9 % (32.0-36.0); MEAN PLATELET VOLUME 8.5 FL (7.0-11.0); MONO % 2.4 % (0.0-8.0); MONOCYTE # 0.1 TH/MM3 (0-0.9); NEUT % 95.5 % (16.0-70.0); PLATELET COUNT 87 TH/MM3 (150-450); RED BLOOD COUNT 3.18 MIL/MM3 (4.50-5.90); RED CELL DISTRIBUTION WIDTH 14.1 % (11.6-17.2); WHITE BLOOD COUNT 4.9 TH/MM3 (4.0-11.0)
[2017-09-13 06:02] LABS: BICARBONATE 23.7 MEQ/L (21.0-32.0); CALCIUM 7.9 MG/DL (8.5-10.1); CREATININE 7.67 MG/DL (0.60-1.30)
[2017-09-13 06:08] LABS: PHOSPHORUS 3.6 MG/DL (2.5-4.9)
[2017-09-13 06:25] LABS: BANDS 6 % (0-6); LYMPHOCYTES 1 % (9-44); METAMYELOCYTES 2 % (0-1); MONOCYTES 2 % (0-8); NEUTROPHIL # MANUAL DIFF 4.7 TH/MM3 (1.8-7.7); POLYS (SEG NEUTROPHILS) 88 % (16-70)
[2017-09-13 06:26] LABS: OVALOCYTES 1+ (NORMAL)
[2017-09-13] MEDS: TACROLIMUS 1 MG CAP PO SCH (06:28)
[2017-09-13] MEDS: MYCOPHENOLATE MOFETIL 500 MG TAB PO SCH ×2 (06:28→17:16)
[2017-09-13] MEDS ORDERED: methylPREDNISolone SOD SUCC 125 MG/2 ML VIAL IV PUSH ONE (07:45)
[2017-09-13] MEDS ORDERED: VANCOMYCIN INJ 1,000 MG in SODIUM CHLOR 0.9% 250 ML INJ 250 ML IV ONE (07:45)
[2017-09-13] MEDS: VITAMIN B CMPLX/VITC/FOLIC AC CAP PO SCH (09:00)
[2017-09-13] MEDS: SUCROFERRIC OXYHYDROXIDE 500 MG PO SCH ×3 (09:01→17:13)
[2017-09-13] MEDS: CALCIUM CARBONATE 500 MG CHEWABLE TAB CHEW SCH ×2 (09:01→16:20)
[2017-09-13] MEDS: DOCUSATE SODIUM 100 MG CAP PO SCH ×2 (09:02→21:23)
[2017-09-13] MEDS: PANTOPRAZOLE SOD 40 MG DELAYED RELEASE TAB PO SCH (09:02)
[2017-09-13] MEDS: ALLOPURINOL 100 MG TAB PO SCH (09:02)
[2017-09-13] MEDS: DAPSONE 25 MG TAB PO SCH (09:02)
[2017-09-13] MEDS: NYSTATIN SUSP 500,000 U/5 ML CUP SWISH-SWAL SCH ×4 (09:02→21:23)
[2017-09-13] MEDS: CINACALCET HYDROCHLORIDE 30 MG TAB PO SCH (09:02)
[2017-09-13] MEDS: SODIUM CHLORIDE 0.9% FLUSH 10 ML FLUSH IV FLUSH SCH ×2 (09:03→21:23)
--- NOTE | 2017-09-13 09:23 | PD.ID.CON ---
History of Present Illness Service ID Consult Requested By Reason for Consult Evaluation and Mment of Sepsis, possible line related infection. Primary Care Physician No Primary Care Physician Diagnoses: History of Present Illness is a 47 y/o AAM with PMHx of ESRD on HD using AV fistula LUE, FSGS as cause for ESRD, patient underwent an elective donor transplant on 2017. Preoperatively patient denies any infections or exposure to people with infections. 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 He presented for an elective renal transplant procedure and review of no major intra operative events. Patient did have a RIJ CL in place which is now removed as he spiked a fever. Patient also had a finley catheter which was removed 2 days back on 09/11/2017. Patient reports discomfort in penile area starting 09/12/2017. He reports excruciating tenderness isaias on touching the penile shaft. He denies any prior trauma to that area. He denies any prostate issues or urinary stricture. He denies any prior STDs in past. He does report a history of UTI almost a year back. Patient started spiking fevers late on 09/12/2017, patient has been baptiste cultured and CXR done. His CL has been removed. Recd a call from and we agreed to get CL taken out and dose x 1 with Daptomycin to avoid nephrotoxicity. ID consulted for evaluation and Mment of Sepsis, possible line related infection. Review of Systems Constitutional: COMPLAINS OF: Fever, Chills, DENIES: Diaphoretic episodes, Fatigue, Weight gain, Weight loss, Dizziness, Change in appetite, Night Sweats Endocrine: DENIES: Heat/cold intolerance, Polydipsia, Polyuria, Polyphagia Eyes: DENIES: Blurred vision, Diplopia, Eye inflammation, Eye pain, Vision loss , Photosensitivity, Double Vision Respiratory: COMPLAINS OF: Shortness of breath, DENIES: Apneas, Cough, Snoring , Wheezing, Hemoptysis, Sputum production Cardiovascular: DENIES: Chest pain, Palpitations, Syncope, Dyspnea on Exertion , PND, Lower Extremity Edema, Orthopnea, Claudication Gastrointestinal: COMPLAINS OF: Abdominal pain (at site of the renal transplant.), DENIES: Black stools, Bloody stools, Constipation, Diarrhea, Nausea, Vomiting, Difficulty Swallowing, Anorexia Genitourinary: COMPLAINS OF: Dysuria, DENIES: Sexual dysfunction, Urinary frequency, Urinary incontinence, Urgency, Hematuria, Nocturia, Penile Discharge , Testicular Pain, Testicular Swelling Musculoskeletal: DENIES: Joint pain, Muscle aches, Stiffness, Joint Swelling, Back pain, Neck pain Integumentary: DENIES: Abnormal pigmentation, Nail changes, Pruritus, Rash Hematologic/lymphatic: DENIES: Bruising, Lymphadenopathy Immunologic/allergic: DENIES: Eczema, Urticaria Neurologic: DENIES: Abnormal gait, Headache, Localized weakness, Paresthesias, Seizures, Speech Problems, Tremor, Poor Balance Psychiatric: DENIES: Anxiety, Confusion, Mood changes, Depression, Hallucinations, Agitation, Suicidal Ideation, Homicidal Ideation, Delusions Except as stated in HPI: all other systems reviewed are Neg Past Family Social History Allergies: Coded Allergies: Sulfa (Sulfonamide Antibiotics) (Unverified Allergy, Intermediate, Respiratory Failure and Swelling, 03/07/17) Uncoded Allergies: seasonal allergies (Allergy, Mild, 08/18/16) Past Medical History HTN Gout FSGS related ESRD was on Hemodialysis using Left arm AV fistula. CAD Past Surgical History Left arm AV fistula. Right wrist surgery for torn ligament. Reported Medications Reported Meds & Active Scripts Active Reported Velphoro (Sucroferric Oxyhydroxide) 500 Mg Chew 1,000 Mg CHEW TIDPC Protonix (Pantoprazole Sodium) 40 Mg Tab 40 Mg PO DAILY Sensipar (Cinacalcet) 60 Mg Tab 60 Mg PO DAILY Nephro-Michelle (B-Complex W/ C & Folic Acid) 1 Tab 1 Tab PO DAILY Lasix (Furosemide) 80 Mg Tab 80 Mg PO BID Allopurinol 300 Mg Tab 300 Mg PO DAILY Renvela (Sevelamer Carbonate) 800 Mg Tab 3,200 Mg PO BIDPC Active Ordered Medications Current Medications Medications (Trade) Dose Ordered Sig/Alisha Route Start Time Stop Time Status Last Admin (NS Flush) 2 ml UNSCH PRN IV FLUSH 09/07/17 00:30 (NS Flush) 2 ml BID IV FLUSH 09/07/17 09:00 09/13/17 09:03 (Protonix) 40 mg DAILY PO 09/07/17 09:00 09/13/17 09:02 (Renvela) 3,200 mg BIDPC PO 09/07/17 09:00 Future Hold 09/12/17 08:38 (Nephrocaps) 1 cap DAILY PO 09/07/17 09:00 09/12/17 08:39 (Sensipar) 60 mg DAILY PO 09/07/17 09:00 09/13/17 09:02 Patient Own Medication PT OWN MED:SUCROFERRIC OXYHYDROX... TIDPC PO 09/07/17 09:30 09/13/17 09:01 Albumin Human 100 ml @ 60 mls/hr UNSCH PRN IV 09/07/17 13:45 (NS Flush) 5 ml UNSCH PRN IV FLUSH 09/07/17 13:45 (Heparin Inj) UNSCH PRN .XX 09/07/17 13:45 (Zofran Inj) 4 mg UNSCH PRN IV PUSH 09/07/17 13:45 (Tylenol) 650 mg UNSCH PRN PO 09/07/17 13:45 (Benadryl) 25 mg UNSCH PRN PO 09/07/17 13:45 09/12/17 16:29 (Nitrostat Sl) 0.4 mg UNSCH PRN SL 09/07/17 13:45 (Catapres) 0.1 mg UNSCH PRN PO 09/07/17 13:45 (Gelfoam 12 Mm/7 Mm Top) 1 foam UNSCH PRN TOP 09/07/17 13:45 (Duoneb Neb) 1 ampule Q6HR NEB PRN INH 09/08/17 15:15 (Protonix Inj) 40 mg DAILY PRN IV PUSH 09/09/17 09:00 (Tums Chew) 500 mg BID@09,16 CHEW 09/08/17 16:00 09/13/17 09:01 (Colace) 100 mg BID PO 09/08/17 21:00 09/13/17 09:02 (Zofran Inj) 4 mg Q6H PRN IV PUSH 09/08/17 15:15 09/09/17 09:46 Ondansetron HCl 8 mg/Dextrose 54 ml @ 200 mls/hr Q6H PRN IV 09/08/17 15:15 (Benadryl) 25 mg Q6H PRN PO 09/08/17 15:15 (Benadryl Inj) 25 mg Q6H PRN IV PUSH 09/08/17 15:15 (Brethine Inj) 1 mg UNSCH PRN SQ 09/08/17 20:00 Miscellaneous Information 1 UNSCH PRN XX 09/09/17 08:45 (Prograf) 2 mg BID@06,18 PO 09/09/17 18:00 09/13/17 06:28 (Dapsone) 50 mg DAILY PO 09/10/17 09:00 09/13/17 09:02 Miscellaneous Information 1 UNSCH PRN XX 09/10/17 08:30 (Zyloprim) 100 mg DAILY PO 09/11/17 09:00 09/13/17 09:02 (Dulcolax Ec) 10 mg DAILY PRN PO 09/10/17 17:15 (Dulcolax Supp) 10 mg DAILY PRN RECTAL 09/10/17 17:45 09/11/17 17:57 (Cellcept) 1,000 mg BID@0600,1800 PO 09/11/17 06:00 09/13/17 06:28 Miscellaneous Information 1 UNSCH PRN XX 09/11/17 09:00 (Valcyte) 450 mg DAILY PO 09/12/17 09:00 Future hold 09/12/17 08:37 (Percocet 5-325 Mg) 1 tab Q6H PRN PO 09/11/17 18:30 09/12/17 13:15 (Percocet 5-325 Mg) 2 tab Q6H PRN PO 09/11/17 18:30 09/13/17 03:43 (Morphine Inj) 2 mg Q3H PRN IV PUSH 09/11/17 18:30 09/12/17 16:29 (Mycostatin Liq) 5 ml QID SWISH-SWAL 09/12/17 09:15 09/13/17 09:02 Daptomycin 920 mg/ Sodium Chloride 100 ml @ 200 mls/hr ONCE ONCE IV 09/13/17 10:00 09/13/17 10:29 Family History Several relatives with HTN, DM, and CAD, Obesity. Maternal grandmother- had a NH. Social History Denies tob/etoh/ illicit drug use. 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 Physical Exam Vital Signs Vital Signs Date Time Temp Pulse Resp B/P (MAP) Pulse Ox O2 Delivery O2 Flow Rate FiO2 09/13/17 06:06 100.4 09/13/17 06:00 92 09/13/17 05:00 98 09/13/17 05:00 100.5 09/13/17 04:00 95 09/13/17 04:00 101.9 09/13/17 03:00 101.6 95 16 148/83 (104) 95 09/13/17 03:00 95 09/13/17 02:00 91 09/13/17 01:08 99.7 09/13/17 01:00 95 09/13/17 00:05 100.1 09/13/17 00:00 92 09/12/17 23:30 100.5 92 16 149/78 (101) 97 09/12/17 23:00 90 09/12/17 22:00 86 09/12/17 21:13 21 09/12/17 21:00 84 09/12/17 20:00 84 09/12/17 20:00 98.1 90 16 149/81 (103) 98 09/12/17 19:00 80 09/12/17 18:00 86 09/12/17 17:00 78 09/12/17 16:34 16 09/12/17 16:00 91 09/12/17 15:00 98.2 77 16 115/72 (86) 100 09/12/17 15:00 77 09/12/17 14:37 16 09/12/17 14:00 73 09/12/17 13:00 72 09/12/17 12:00 76 09/12/17 11:00 98.0 71 14 132/79 (96) 100 09/12/17 11:00 71 09/12/17 10:00 87 Physical Exam GENERAL: Obese, well-developed patient, in no apparent distress. SKIN: No rashes, ecchymoses or lesions. Cool and dry. HEAD: Atraumatic. Normocephalic. No temporal or scalp tenderness. EYES: Pupils equal round and reactive. Extraocular motions intact. No scleral icterus. No injection or drainage. ENT: Nose without bleeding, purulent drainage or septal hematoma. Throat without erythema, tonsillar hypertrophy or exudate. Uvula midline. Airway patent. NECK: Trachea midline. Supple, nontender, no meningeal signs. CARDIOVASCULAR: HS audible. RESPIRATORY: Clear to auscultation. Breath sounds equal bilaterally. No wheezes , rales, or rhonchi. GASTROINTESTINAL: Abdomen soft. Right LQ surgical scar intact with no e.o infection. MUSCULOSKELETAL: LUE with AV fistula with bruit and thrill palpable. No e/o infection Extremities without clubbing, cyanosis, or edema. No joint tenderness, effusion, or edema noted. No calf tenderness. Negative Homans sign bilaterally. exam: tenderness of penile shaft with some edema. Right buttock cheek with tenderness but no induration warmth noted. NEUROLOGICAL: Awake and alert. Psych cooperative. Psych: cooperative IV line sites with no e.o infection. Laboratory Laboratory Tests Test 09/12/17 18:05 09/13/17 04:05 09/13/17 04:50 Blood Urea Nitrogen 100 100 Creatinine 7.85 7.67 Random Glucose 87 93 Calcium Level 8.0 7.9 Sodium Level 136 137 Potassium Level 3.2 3.8 Chloride Level 100 101 Carbon Dioxide Level 25.0 23.7 Anion Gap 11 12 Estimat Glomerular Filtration Rate 9 9 Urine Color YELLOW Urine Turbidity HAZY Urine pH 5.5 Urine Specific [place] 1.012 Urine Protein 100 Urine Glucose (UA) NEG Urine Ketones NEG Urine Occult Blood LARGE Urine Nitrite NEG Urine Bilirubin NEG Urine Urobilinogen LESS THAN 2.0 Urine Leukocyte Esterase NEG Urine RBC Urine WBC 22 Urine Amorphous Sediment RARE Urine Bacteria FEW Urine Mucus FEW Microscopic Urinalysis Comment CULTURE INDICATED White Blood Count 4.9 Red Blood Count 3.18 Hemoglobin 10.1 Hematocrit 29.9 Mean Corpuscular Volume 94.0 Mean Corpuscular Hemoglobin 31.8 Mean Corpuscular Hemoglobin Concent 33.9 Red Cell Distribution Width 14.1 Platelet Count 87 Mean Platelet Volume 8.5 Neutrophils (%) (Auto) 95.5 Lymphocytes (%) (Auto) 1.7 Monocytes (%) (Auto) 2.4 Eosinophils (%) (Auto) 0.3 Basophils (%) (Auto) 0.1 Neutrophils # (Auto) 4.7 Lymphocytes # (Auto) 0.1 Monocytes # (Auto) 0.1 Eosinophils # (Auto) 0.0 Basophils # (Auto) 0.0 CBC Comment AUTO DIFF Differential Total Cells Counted 100 Neutrophils % (Manual) 88 Band Neutrophils % 6 Lymphocytes % 1 Monocytes % 2 Eosinophils % 1 Neutrophils # (Manual) 4.7 Metamyelocytes 2 Differential Comment FINAL DIFF MANUAL Platelet Estimate LOW Platelet Morphology Comment NORMAL Ovalocytes 1+ Phosphorus Level 3.6 Magnesium Level 2.0 Date/Time Source Procedure Growth Status 09/13/17 04:21 Blood Peripheral Aerobic Blood Culture Pending Received 09/13/17 04:21 Blood Peripheral Anaerobic Blood Culture Pending Received 09/13/17 04:05 Urine Clean Catch Urine Culture Pending Received Result Diagram: 09/13/17 0450 09/13/17 0450 Imaging Last Impressions Chest X-Ray 09/13/17 0000 Signed Impressions: Service Date/Time: Wednesday, September 13, 2017 03:54 - CONCLUSION: 1. Moderate cardiomegaly with no evidence of pulmonary edema. 2. The right internal jugular central venous line remains in place. Juwan Morrison MD Renal Ultrasound 09/09/17 0000 Signed Impressions: Service Date/Time: Saturday, September 09, 2017 07:42 - CONCLUSION: Stable and unremarkable followup ultrasound of the right lower quadrant transplanted kidney. No evidence of hydronephrosis. Demetrio Kaye MD Assessment and Plan Assessment and Plan Fever in a post transplant patient ? Sepsis ? New infection (line vs CAUTI) s/p cadaveric renal transplant 09/08/2017 ESRD was on HD using LUE AV fistula. HTN CAD Recs: Continue Dapto IV (renal dose adjusted) Start Cefepime 1 gm IV q24hrs (renal dose adjusted) CL removed Finley removed 2 days back and now patient has tenderness ? balanitis vs edema related. Will follow clinically. Follow cultures Follow clinically. Odalis Morton MD Sep 13, 2017 09:23
--- NOTE | 2017-09-13 09:40 | HHI.PR ---
Subjective Remarks Wadsworth fatigued yesterday. Feels a little fatigued this AM. W[place]sworth unwell and had chills this AM, around time of fever spike. Objective Vital Signs Date Time Temp Pulse Resp B/P (MAP) Pulse Ox O2 Delivery O2 Flow Rate FiO2 09/13/17 06:06 100.4 09/13/17 06:00 92 09/13/17 05:00 98 09/13/17 05:00 100.5 09/13/17 04:00 95 09/13/17 04:00 101.9 09/13/17 03:00 101.6 95 16 148/83 (104) 95 09/13/17 03:00 95 09/13/17 02:00 91 09/13/17 01:08 99.7 09/13/17 01:00 95 09/13/17 00:05 100.1 09/13/17 00:00 92 09/12/17 23:30 100.5 92 16 149/78 (101) 97 09/12/17 23:00 90 09/12/17 22:00 86 09/12/17 21:13 21 09/12/17 21:00 84 09/12/17 20:00 84 09/12/17 20:00 98.1 90 16 149/81 (103) 98 09/12/17 19:00 80 09/12/17 18:00 86 09/12/17 17:00 78 09/12/17 16:34 16 09/12/17 16:00 91 09/12/17 15:00 98.2 77 16 115/72 (86) 100 09/12/17 15:00 77 09/12/17 14:37 16 09/12/17 14:00 73 09/12/17 13:00 72 09/12/17 12:00 76 09/12/17 11:00 98.0 71 14 132/79 (96) 100 09/12/17 11:00 71 09/12/17 10:00 87 I/O 09/12/17 09/12/17 09/12/17 09/13/17 09/13/17 09/13/17 07:00 15:00 23:00 07:00 15:00 23:00 Intake Total 480 ml 900 ml 480 ml Output Total 875 ml 1545 ml 1180 ml Balance -395 ml -645 ml -700 ml Intake Oral 480 ml 900 ml 480 ml Output Urine Total 850 ml 1500 ml 1150 ml Drainage Total 25 ml 45 ml 30 ml # Bowel Movements 0 Result Diagram: 09/13/1744909/13/17449 Objective Remarks Resp-CTAB CV-s1s2 Abd-+ BS, soft, NT/ ND. Wound with minimal staining on dressing. Minimal drainage from FRANCHESCA puncture site. Some penile tenderness with manipulation. Ext-Calves soft NT B. No peripheral edema noted Assessment and Plan Problem List: (1) Hypertension ICD Codes: I10 - Essential (primary) hypertension Status: Acute (2) ESRD (end stage renal disease) on dialysis ICD Codes: N18.6 - End stage renal disease; Z99.2 - Dependence on renal dialysis Status: Acute Assessment and Plan 47 yom with CKD-5 due to Htn. Hx of FSGS. S/p RLQ brain cadaveric renal transplant. POD4 Good UOP. Creatinine improving Febrile to 101.9 overnight. Pancultured. Central line removed. Antibiosis started. Penile tenderness (? balanitis, ? due to finley catheter). Antibiosis started ID consulted-input appreciated. Leukopenia resolved. Encourage IS/ ambulation. B SCDs in place Problem Qualifiers (1) Hypertension: Qualified Codes: I10 - Essential (primary) hypertension Von Caba Jr., MD Sep 13, 2017 09:40
[2017-09-13] MEDS ORDERED: SODIUM CHLORIDE 0.9% IV ONE (10:00)
[2017-09-13] MEDS ORDERED: DAPTOMYCIN IV ONE (10:00)
--- NOTE | 2017-09-13 10:57 | HHI.PR ---
Subjective Remarks Patient is seen, in the chair. With high grade fevers overnight. He has no cough. He is complaining of penile pain, there is no discharge. No nausea or vomiting. Has decreased appetite not eating much. Also complains of having dry nasal membranes and bleeding at the time. Abdominal pain is controlled by pain medications. Objective Vitals Vital Signs Date Time Temp Pulse Resp B/P (MAP) Pulse Ox O2 Delivery O2 Flow Rate FiO2 09/13/17 10:00 82 09/13/17 09:00 86 09/13/17 08:00 90 09/13/17 07:35 98.3 94 18 157/82 (107) 93 09/13/17 07:00 90 09/13/17 06:06 100.4 09/13/17 06:00 92 09/13/17 05:00 98 09/13/17 05:00 100.5 09/13/17 04:00 95 09/13/17 04:00 101.9 09/13/17 03:00 101.6 95 16 148/83 (104) 95 09/13/17 03:00 95 09/13/17 02:00 91 09/13/17 01:08 99.7 09/13/17 01:00 95 09/13/17 00:05 100.1 09/13/17 00:00 92 09/12/17 23:30 100.5 92 16 149/78 (101) 97 09/12/17 23:00 90 09/12/17 22:00 86 09/12/17 21:13 21 09/12/17 21:00 84 09/12/17 20:00 84 09/12/17 20:00 98.1 90 16 149/81 (103) 98 09/12/17 19:00 80 09/12/17 18:00 86 09/12/17 17:00 78 09/12/17 16:34 16 09/12/17 16:00 91 09/12/17 15:00 98.2 77 16 115/72 (86) 100 09/12/17 15:00 77 09/12/17 14:37 16 09/12/17 14:00 73 09/12/17 13:00 72 09/12/17 12:00 76 09/12/17 11:00 98.0 71 14 132/79 (96) 100 09/12/17 11:00 71 I/O 09/12/17 09/12/17 09/12/17 09/13/17 09/13/17 09/13/17 07:00 15:00 23:00 07:00 15:00 23:00 Intake Total 480 ml 900 ml 480 ml Output Total 875 ml 1545 ml 1180 ml Balance -395 ml -645 ml -700 ml Intake Oral 480 ml 900 ml 480 ml Output Urine Total 850 ml 1500 ml 1150 ml Drainage Total 25 ml 45 ml 30 ml # Bowel Movements 0 Result Diagram: 09/13/17 0450 09/13/17 0450 Imaging Last Impressions Chest X-Ray 09/13/17 0000 Signed Impressions: Service Date/Time: Wednesday, September 13, 2017 03:54 - CONCLUSION: 1. Moderate cardiomegaly with no evidence of pulmonary edema. 2. The right internal jugular central venous line remains in place. Juwan Morrison MD Renal Ultrasound 09/09/17 0000 Signed Impressions: Service Date/Time: Saturday, September 09, 2017 07:42 - CONCLUSION: Stable and unremarkable followup ultrasound of the right lower quadrant transplanted kidney. No evidence of hydronephrosis. Demetrio Kaye MD Objective Remarks GENERAL: This is a well-nourished, well-developed patient, in no apparent distress. NOSE: Nasal bleeding. CARDIOVASCULAR: Regular rate and regular rhythm without murmurs, gallops, or rubs. RESPIRATORY: Clear to auscultation. Breath sounds equal bilaterally. No wheezes , rales, or rhonchi. GASTROINTESTINAL: Abdomen soft, tender in the right side at the surgical site, dressing c/d/i, nondistended. Normal, active bowel sounds MUSCULOSKELETAL: Extremities without clubbing, cyanosis, or edema. NEURO: Alert & Oriented x4 to person, place, time, situation. Moves all ext x4 GENITOURINARY: Penile edema, with tenderness to palpation. No rash noted. No erythema. No scrotal edema or pain. Procedures Complex reconstruction of right cadaveric kidney; Right pelvic donor renal transplant. by Dr Castaneda and Dr Caba on 09/08/17 A/P Problem List: (1) ESRD (end stage renal disease) on dialysis ICD Code: N18.6 - End stage renal disease; Z99.2 - Dependence on renal dialysis Status: Acute (2) Hypertension ICD Code: I10 - Essential (primary) hypertension Status: Acute Assessment and Plan ESRD on dialysis admitted for renal transplant S/p Complex reconstruction of right cadaveric kidney. Right pelvic donor renal transplant by Dr Castaneda and Dr Caba on 09/08/[address] Colmenares ff. Resumed home medications Avoid nephrotoxins H/H stable. Monitor Kidney indices improving Meds per kidney transplant team. Received thymo, last dose 09/11/17. On low dose prograf. On prophylactic meds bactrim, valacyclovir. Noted neutropenic 09/12/17, off thymo, neutropenia resolved However 09/13/17 Febrile to 101.9 overnight. Pancultured. Central line removed. Blood cx, ID consulted. Antibiosis started, ID ff. CXR reviewed no signs on PNA Check UA Sputum cx if obtainable Penile tenderness (? balanitis, ? due to finley catheter). In IV abx Encourage IS/ ambulation. Nasal bleeding. NaCl prn Hyperkalemia received Kayexalate, monitor. Other chronic conditions appears stable, monitor. Continue home medications as appropriate Hep C positive Follow-up as outpatient DVT prophylaxis: SCDs Discharge Planning S/p kidney transplant, DC when cleared by surgeon and nephro Discussed with the patient, family at bedside, Dr. Caba the surgeon, ID specialist Dr Morton Problem Qualifiers (1) Hypertension: Qualified Codes: I10 - Essential (primary) hypertension Isabella Teageu MD Sep 13, 2017 10:57
[2017-09-13] MEDS ORDERED: SODIUM CHLORIDE 0.65% NASAL SPRAY 45 ML BTL EACH NARE PRN (11:00)
[2017-09-13] MEDS: CEFEPIME INJ 1,000 MG in SODIUM CHLORIDE 0.9% INJ 100 ML IV SCH (11:57)
--- NOTE | 2017-09-13 13:13 | HHI.NPPN ---
Subjective History of Present Illness 47 year old male with ESRD admitted for donor kidney transplant Additional Remarks had fever yesterday central line removed Objective Data Data Vital Signs Date Time Temp Pulse Resp B/P (MAP) Pulse Ox O2 Delivery O2 Flow Rate FiO2 09/13/17 12:00 84 09/13/17 11:23 98.2 82 18 125/75 (92) 93 09/13/17 11:00 85 09/13/17 10:00 82 09/13/17 09:00 86 09/13/17 08:00 90 09/13/17 07:35 98.3 94 18 157/82 (107) 93 09/13/17 07:00 90 09/13/17 06:06 100.4 09/13/17 06:00 92 09/13/17 05:00 98 09/13/17 05:00 100.5 09/13/17 04:00 95 09/13/17 04:00 101.9 09/13/17 03:00 101.6 95 16 148/83 (104) 95 09/13/17 03:00 95 09/13/17 02:00 91 09/13/17 01:08 99.7 09/13/17 01:00 95 09/13/17 00:05 100.1 09/13/17 00:00 92 09/12/17 23:30 100.5 92 16 149/78 (101) 97 09/12/17 23:00 90 09/12/17 22:00 86 09/12/17 21:13 21 09/12/17 21:00 84 09/12/17 20:00 84 09/12/17 20:00 98.1 90 16 149/81 (103) 98 09/12/17 19:00 80 09/12/17 18:00 86 09/12/17 17:00 78 09/12/17 16:34 16 09/12/17 16:00 91 09/12/17 15:00 98.2 77 16 115/72 (86) 100 09/12/17 15:00 77 09/12/17 14:37 16 09/12/17 14:00 73 -: 09/13/17 0450 09/13/17 0450 Microbiology 09/13/17 Aerobic Blood Culture, Received Pending 09/13/17 Anaerobic Blood Culture, Received Pending 09/13/17 Aerobic Blood Culture, Received Pending 09/13/17 Anaerobic Blood Culture, Received Pending 09/13/17 Gram Stain, Received Pending 09/13/17 Sputum Culture, Received Pending 09/13/17 Urine Culture, Received Pending 09/13/17 Wound Culture, Received Pending Physical Exam General Appearance: Well Developed, Well Nourished Neck Neck Exam: Neck Supple Pulmonary Resp Exam: Clear Bilaterally, Breath Sounds Equal Cardiology CV Exam: Regular, Normal Sinus Rhythm Gastrointestinal/Abdomen GI Exam: Soft (postsurgical incision right lower abdomen) Extremeties Extremities Exam: Moderate Edema Neurologic Neuro Exam: Sedated Assessment/Plan Problem List: (1) ESRD (end stage renal disease) on dialysis ICD Codes: N18.6 - End stage renal disease; Z99.2 - Dependence on renal dialysis Status: Acute Plan: Patient is doing well now had fever last night received Cefepime/Dapto /line related removed central line follow Cultures Transplant kidney rt now passing more urine, , Cr better Urine output good Monitor electrolytes On Tacrolimus/MMF/SoluMedrol Prograf low dose follow levels PCP prophylaxis on Dapsone start K PO4. (2) Hypertension ICD Codes: I10 - Essential (primary) hypertension Status: Acute Plan: Controlled on medication Problem Qualifiers (1) Hypertension: Qualified Codes: I10 - Essential (primary) hypertension John Colmenares MD Sep 13, 2017 13:13
[2017-09-13] MEDS: TACROLIMUS 5 MG CAP PO SCH (17:13)
[2017-09-13] MEDS: POTASSIUM PHOSPHATE MONOBASIC 500 MG TAB PO SCH (21:23)
[2017-09-14] VITALS (26 sets, daily range): BP systolic 121–143; BP diastolic 78–87; PULSE 61–92; RESP 18; TEMP 97.3–98.7; O2SAT 97–100
[2017-09-14] MEDS: BISACODYL 10 MG SUPP RECTAL PRN (03:19)
[2017-09-14 05:34] LABS: AUTOMATED NEUTROPHIL # 5.7 TH/MM3 (1.8-7.7); BASOPHIL % 0.5 % (0.0-2.0); EOSINOPHIL % 0.1 % (0.0-4.0); LYMPH % 1.1 % (9.0-44.0); LYMPHOCYTE # 0.1 TH/MM3 (1.0-4.8); MEAN CORPUSCULAR HEMOGLOBIN 31.4 PG (27.0-34.0); MEAN CORPUSCULAR HGB CONC 33.5 % (32.0-36.0); MEAN PLATELET VOLUME 8.6 FL (7.0-11.0); MONO % 2.4 % (0.0-8.0); MONOCYTE # 0.1 TH/MM3 (0-0.9); NEUT % 95.9 % (16.0-70.0); PLATELET COUNT 91 TH/MM3 (150-450); RED BLOOD COUNT 3.19 MIL/MM3 (4.50-5.90); RED CELL DISTRIBUTION WIDTH 13.8 % (11.6-17.2); WHITE BLOOD COUNT 5.9 TH/MM3 (4.0-11.0)
[2017-09-14 05:40] LABS: CALCIUM 8.3 MG/DL (8.5-10.1); CREATININE 5.91 MG/DL (0.60-1.30); MAGNESIUM 2.3 MG/DL (1.5-2.5); PHOSPHORUS 3.3 MG/DL (2.5-4.9)
[2017-09-14] MEDS: TACROLIMUS 5 MG CAP PO SCH ×2 (05:59→18:27)
[2017-09-14] MEDS: MYCOPHENOLATE MOFETIL 500 MG TAB PO SCH ×2 (06:00→18:28)
[2017-09-14] MEDS: VITAMIN B CMPLX/VITC/FOLIC AC CAP PO SCH (09:00)
[2017-09-14] MEDS: SUCROFERRIC OXYHYDROXIDE 500 MG PO SCH ×3 (09:30→18:28)
--- NOTE | 2017-09-14 09:30 | HHI.PR ---
Subjective Remarks No new c/o. Maisha po. + flatus/ BM. Objective Vital Signs Date Time Temp Pulse Resp B/P (MAP) Pulse Ox O2 Delivery O2 Flow Rate FiO2 09/14/17 09:01 97 21 09/14/17 06:14 69 09/14/17 05:00 66 09/14/17 04:08 70 09/14/17 03:46 98.7 63 18 143/85 (104) 97 09/14/17 03:00 83 09/14/17 02:00 72 09/14/17 01:00 66 09/14/17 00:00 72 09/13/17 23:31 98.2 71 18 143/86 (105) 99 09/13/17 23:00 68 09/13/17 22:00 72 09/13/17 21:30 98.3 75 18 141/84 (103) 99 09/13/17 21:00 74 09/13/17 20:08 98 09/13/17 20:00 84 09/13/17 19:00 74 09/13/17 18:00 74 09/13/17 17:00 86 09/13/17 16:00 78 09/13/17 15:39 21 09/13/17 15:11 98.6 78 18 149/89 (109) 98 09/13/17 15:00 73 09/13/17 14:00 77 09/13/17 13:00 92 09/13/17 12:00 84 09/13/17 11:23 98.2 82 18 125/75 (92) 93 09/13/17 11:00 85 09/13/17 10:00 82 I/O 09/13/17 09/13/17 09/13/17 09/14/17 09/14/17 09/14/17 07:00 15:00 23:00 07:00 15:00 23:00 Intake Total 480 ml 920 ml 240 ml Output Total 1180 ml 1350 ml 675 ml Balance -700 ml -430 ml -435 ml Intake Oral 480 ml 920 ml 240 ml Output Urine Total 1150 ml 1350 ml 675 ml Drainage Total 30 ml # Bowel Movements 0 1 Result Diagram: 09/14/1744409/14/17444 Objective Remarks Resp-CTAB CV-s1s2 Abd-+ BS, soft, NT/ ND. Wound with minimal staining on dressing. Minimal drainage from former FRANCHESCA puncture site. Penile swelling and tenderness improved. Ext-Calves soft NT B. No peripheral edema noted Assessment and Plan Problem List: (1) Hypertension ICD Codes: I10 - Essential (primary) hypertension Status: Acute (2) ESRD (end stage renal disease) on dialysis ICD Codes: N18.6 - End stage renal disease; Z99.2 - Dependence on renal dialysis Status: Acute Assessment and Plan 47 yom with CKD-5 due to Htn. Hx of FSGS. S/p RLQ brain cadaveric renal transplant. POD4 Feels good today. Good UOP. Creatinine continues to improve Afebrile for last 24+ hours. . Penile tenderness/ swelling improved. ID input appreciated. Will await their followup on preliminary lab culture results and recommendations re antibiosis post discharge Encourage IS/ ambulation. B SCDs in place Will potentially plan for discharge later today Problem Qualifiers (1) Hypertension: Qualified Codes: I10 - Essential (primary) hypertension Von Caba Jr., MD Sep 14, 2017 09:30
[2017-09-14] MEDS: NYSTATIN SUSP 500,000 U/5 ML CUP SWISH-SWAL SCH ×4 (09:32→20:09)
[2017-09-14] MEDS: PANTOPRAZOLE SOD 40 MG DELAYED RELEASE TAB PO SCH (09:32)
[2017-09-14] MEDS: DOCUSATE SODIUM 100 MG CAP PO SCH ×2 (09:32→20:08)
[2017-09-14] MEDS: ALLOPURINOL 100 MG TAB PO SCH (09:32)
[2017-09-14] MEDS: POTASSIUM PHOSPHATE MONOBASIC 500 MG TAB PO SCH ×2 (09:33→20:09)
[2017-09-14] MEDS: CALCIUM CARBONATE 500 MG CHEWABLE TAB CHEW SCH ×2 (09:33→15:42)
[2017-09-14] MEDS: DAPSONE 25 MG TAB PO SCH (09:33)
[2017-09-14] MEDS: CINACALCET HYDROCHLORIDE 30 MG TAB PO SCH (09:33)
[2017-09-14] MEDS: SODIUM CHLORIDE 0.9% FLUSH 10 ML FLUSH IV FLUSH SCH ×2 (09:34→20:10)
[2017-09-14] MEDS: oxyCODONE/ACETAMINOPHEN 5 MG/325 MG TAB PO PRN ×2 (09:36→20:09)
--- NOTE | 2017-09-14 10:56 | HHI.IDPN ---
Subjective Subjective Remarks is a 47 y/o AAM with PMHx of ESRD on HD using AV fistula LUE, FSGS as cause for ESRD, patient underwent an elective donor transplant on 2017. Preoperatively patient denies any infections or exposure to people with infections. 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 He presented for an elective renal transplant procedure and review of no major intra operative events. Patient did have a RIJ CL in place which is now removed as he spiked a fever. Patient also had a finley catheter which was removed 2 days back on 09/11/2017. Patient reports discomfort in penile area starting 09/12/2017. He reports excruciating tenderness isaias on touching the penile shaft. He denies any prior trauma to that area. He denies any prostate issues or urinary stricture. He denies any prior STDs in past. He does report a history of UTI almost a year back. Patient started spiking fevers late on 09/12/2017, patient has been baptiste cultured and CXR done. His CL has been removed. Recd a call from and we agreed to get CL taken out and dose x 1 with Daptomycin to avoid nephrotoxicity. ID consulted for evaluation and Mment of Sepsis, possible line related infection. Overnight events reviewed. No fevers No rash No diarrhea Reports penile swelling and pain better. deferred exam as sensitive to touch. examined him per patient. Antibiotics Cefepime IV Dapto IV Lines Line sites with no e.o infection Past Medical History reviewed Allergies: Coded Allergies: Sulfa (Sulfonamide Antibiotics) (Unverified Allergy, Intermediate, Respiratory Failure and Swelling, 03/07/17) Uncoded Allergies: seasonal allergies (Allergy, Mild, 08/18/16) Objective . Vital Signs Date Time Temp Pulse Resp B/P (MAP) Pulse Ox O2 Delivery O2 Flow Rate FiO2 09/14/17 10:22 18 09/14/17 10:19 92 09/14/17 09:01 97 21 09/14/17 09:00 92 09/14/17 08:30 97.3 71 18 127/80 (96) 100 09/14/17 08:30 66 09/14/17 06:14 69 09/14/17 05:00 66 09/14/17 04:08 70 09/14/17 03:46 98.7 63 18 143/85 (104) 97 09/14/17 03:00 83 09/14/17 02:00 72 09/14/17 01:00 66 09/14/17 00:00 72 09/13/17 23:31 98.2 71 18 143/86 (105) 99 09/13/17 23:00 68 09/13/17 22:00 72 09/13/17 21:30 98.3 75 18 141/84 (103) 99 09/13/17 21:00 74 09/13/17 20:08 98 09/13/17 20:00 84 09/13/17 19:00 74 09/13/17 18:00 74 09/13/17 17:00 86 09/13/17 16:00 78 09/13/17 15:39 21 09/13/17 15:11 98.6 78 18 149/89 (109) 98 09/13/17 15:00 73 09/13/17 14:00 77 09/13/17 13:00 92 09/13/17 12:00 84 09/13/17 11:23 98.2 82 18 125/75 (92) 93 09/13/17 11:00 85 . Laboratory Tests Test 09/13/17 04:50 09/14/17 04:45 White Blood Count 4.9 TH/MM3 5.9 TH/MM3 Red Blood Count 3.18 MIL/MM3 3.19 MIL/MM3 Hemoglobin 10.1 GM/DL 10.0 GM/DL Hematocrit 29.9 % 30.0 % Mean Corpuscular Volume 94.0 FL 94.0 FL Mean Corpuscular Hemoglobin 31.8 PG 31.4 PG Mean Corpuscular Hemoglobin Concent 33.9 % 33.5 % Red Cell Distribution Width 14.1 % 13.8 % Platelet Count 87 TH/MM3 91 TH/MM3 Mean Platelet Volume 8.5 FL 8.6 FL Neutrophils (%) (Auto) 95.5 % 95.9 % Lymphocytes (%) (Auto) 1.7 % 1.1 % Monocytes (%) (Auto) 2.4 % 2.4 % Eosinophils (%) (Auto) 0.3 % 0.1 % Basophils (%) (Auto) 0.1 % 0.5 % Neutrophils # (Auto) 4.7 TH/MM3 5.7 TH/MM3 Lymphocytes # (Auto) 0.1 TH/MM3 0.1 TH/MM3 Monocytes # (Auto) 0.1 TH/MM3 0.1 TH/MM3 Eosinophils # (Auto) 0.0 TH/MM3 0.0 TH/MM3 Basophils # (Auto) 0.0 TH/MM3 0.0 TH/MM3 CBC Comment AUTO DIFF AUTO DIFF Differential Total Cells Counted 100 Neutrophils % (Manual) 88 % Band Neutrophils % 6 % Lymphocytes % 1 % Monocytes % 2 % Eosinophils % 1 % Neutrophils # (Manual) 4.7 TH/MM3 Metamyelocytes 2 % Differential Comment FINAL DIFF MANUAL AUTO DIFF CONFIRMED Platelet Estimate LOW LOW Platelet Morphology Comment NORMAL NORMAL Ovalocytes 1+ Laboratory Tests Test 09/12/17 18:05 09/13/17 04:50 09/14/17 04:45 Blood Urea Nitrogen 100 MG/DL 100 MG/DL 92 MG/DL Creatinine 7.85 MG/DL 7.67 MG/DL 5.91 MG/DL Random Glucose 87 MG/DL 93 MG/DL 143 MG/DL Calcium Level 8.0 MG/DL 7.9 MG/DL 8.3 MG/DL Sodium Level 136 MEQ/L 137 MEQ/L 135 MEQ/L Potassium Level 3.2 MEQ/L 3.8 MEQ/L 3.5 MEQ/L Chloride Level 100 MEQ/L 101 MEQ/L 101 MEQ/L Carbon Dioxide Level 25.0 MEQ/L 23.7 MEQ/L 23.0 MEQ/L Anion Gap 11 MEQ/L 12 MEQ/L 11 MEQ/L Estimat Glomerular Filtration Rate 9 ML/MIN 9 ML/MIN 12 ML/MIN Phosphorus Level 3.6 MG/DL 3.3 MG/DL Magnesium Level 2.0 MG/DL 2.3 MG/DL Microbiology Date/Time Source Procedure Growth Status 09/13/17 04:21 Blood Peripheral Aerobic Blood Culture Pending Received 09/13/17 04:21 Blood Peripheral Anaerobic Blood Culture Pending Received 09/13/17 04:21 Blood Peripheral Aerobic Blood Culture Pending Received 09/13/17 04:21 Blood Peripheral Anaerobic Blood Culture Pending Received 09/13/17 12:03 Sputum Expectorated Sputum Gram Stain - Final Resulted 09/13/17 12:03 Sputum Expectorated Sputum Sputum Culture Pending Resulted 09/13/17 04:05 Urine Clean Catch Urine Culture Pending Received 09/13/17 08:58 Catheter Tip Central Venous Line Wound Culture Pending Received 09/13/17 04:05 Catheter Tip Central Venous Line Fungal Culture Pending Received Imaging Last Impressions Chest X-Ray 09/13/17 0000 Signed Impressions: Service Date/Time: Wednesday, September 13, 2017 03:54 - CONCLUSION: 1. Moderate cardiomegaly with no evidence of pulmonary edema. 2. The right internal jugular central venous line remains in place. Juwan Morrison MD Renal Ultrasound 09/09/17 0000 Signed Impressions: Service Date/Time: Saturday, September 09, 2017 07:42 - CONCLUSION: Stable and unremarkable followup ultrasound of the right lower quadrant transplanted kidney. No evidence of hydronephrosis. Demetrio Kaye MD Physical Exam GENERAL: Obese, well-developed patient, in no apparent distress. SKIN: No rashes, ecchymoses or lesions. Cool and dry. HEAD: Atraumatic. Normocephalic. No temporal or scalp tenderness. EYES: Pupils equal round and reactive. Extraocular motions intact. No scleral icterus. No injection or drainage. ENT: Nose without bleeding, purulent drainage or septal hematoma. Throat without erythema, tonsillar hypertrophy or exudate. Uvula midline. Airway patent. NECK: Trachea midline. Supple, nontender, no meningeal signs. CARDIOVASCULAR: HS audible. RESPIRATORY: Clear to auscultation. Breath sounds equal bilaterally. No wheezes , rales, or rhonchi. GASTROINTESTINAL: Abdomen soft. Right LQ surgical scar intact with no e.o infection. MUSCULOSKELETAL: LUE with AV fistula with bruit and thrill palpable. No e/o infection Extremities without clubbing, cyanosis, or edema. No joint tenderness, effusion, or edema noted. No calf tenderness. Negative Homans sign bilaterally. exam: deferred today. NEUROLOGICAL: Awake and alert. Psych cooperative. Psych: cooperative IV line sites with no e.o infection. Assessment & Plan Remarks Fever in a post transplant patient ? Sepsis ? New infection (line vs CAUTI) s/p cadaveric renal transplant 09/08/2017 ESRD was on HD using LUE AV fistula. HTN CAD Recs: Continue Dapto IV (renal dose adjusted) Continue Cefepime 1 gm IV q24hrs (renal dose adjusted) If blood cultures remain negative tomorrow and patient clinically doing well ok to discharge home. The Dapto will last in his system till blood cultures final and negative. If blood cultures negative ok to observe off antibiotics. If any recurrence of fevers outpatient repeat blood culture to ensure no recurrence of bacteremia. If blood cultures positive will need ID input and repeat blood cultures possible readmission. Patient was explained this plan. Sukumar Garcia and RN as well. Follow cultures Follow clinically. Thank you for involving me in the care of , it has been a pleasure to know him. Odalis Morton MD Sep 14, 2017 10:56
[2017-09-14] MEDS: CEFEPIME INJ 1,000 MG in SODIUM CHLORIDE 0.9% INJ 100 ML IV SCH (11:23)
[2017-09-14] MEDS ORDERED: predniSONE 20 MG TAB PO SCH (13:30)
--- NOTE | 2017-09-14 13:49 | PHATRASOAP ---
Date/Time: 09/14/17 8244 Pharmacist daily assessment of kidney transplant patient: Kidney transplant Post op day #6 O: Wt: 115 kg Allergies: Sulfa A: Vitals: BP =130s/70s, HR = 60s Electrolytes: Na= 135, K=3.5, Ca=8.3, albumin =3.1, Phosphorus=3.3, Mg=2.3 SCR= 5.91 WBC=5.9 HGB=10 PLTS=91 [id number] BM = 1 Tacrolimus level 09/11=1.3 Hospital Medications: Thymoglobulin 160mg IV on 09/09, 106mg on 09/10,54mg on 09/11 total received = 320mg = 2.8mg/kg) Cellcept 1000 mg po bid Tacrolimus 5mg PO BID Valcyte 450mg TIW Dapsone 50mg po daily Prednisone 40mg po daily Percocet 5/325mg po q6h prn Docusate 100mg po bid Calcium carbonate 500mg po bid Daptomycin 920mg IV q48h Cefepime 1000mg IV q24h -Patient had received 3 doses of Thymoglobulin with total dose to date 2.3mg/kg, thus completing the induction phase - Tacrolimus level 09/14 labs=4.6, continue current dose - No fever, blood culture negative x 1 day,catheter tip culture pebding -Ambulating will assist better graft function and more improved UOP P: -Induction phase completed - Continue Cellcept, Valcyte, dapsone, Tacrolimus and prednisone - continue current antibiotics -Encourage ambulating -Patient did not have any questions to pharmacist. Pharmacist: Devika KruseD Signature on file
--- NOTE | 2017-09-14 14:08 | HHI.PR ---
Subjective Remarks The patient was seen early in the morning. Says he had no fever overnight. Not coughing. There is no bleeding from the nose. Pain is better controlled by medications. he was able to ambulate yesterday in the hallways. No nausea, vomiting, no diarrhea or constipation. Objective Vitals Vital Signs Date Time Temp Pulse Resp B/P (MAP) Pulse Ox O2 Delivery O2 Flow Rate FiO2 09/14/17 13:03 74 09/14/17 12:11 79 09/14/17 11:45 97.7 84 18 134/80 (98) 100 09/14/17 11:45 86 09/14/17 10:22 18 09/14/17 10:19 92 09/14/17 09:01 97 21 09/14/17 09:00 92 09/14/17 08:30 97.3 71 18 127/80 (96) 100 09/14/17 08:30 66 09/14/17 06:14 69 09/14/17 05:00 66 09/14/17 04:08 70 09/14/17 03:46 98.7 63 18 143/85 (104) 97 09/14/17 03:00 83 09/14/17 02:00 72 09/14/17 01:00 66 09/14/17 00:00 72 09/13/17 23:31 98.2 71 18 143/86 (105) 99 09/13/17 23:00 68 09/13/17 22:00 72 09/13/17 21:30 98.3 75 18 141/84 (103) 99 09/13/17 21:00 74 09/13/17 20:08 98 09/13/17 20:00 84 09/13/17 19:00 74 09/13/17 18:00 74 09/13/17 17:00 86 09/13/17 16:00 78 09/13/17 15:39 21 09/13/17 15:11 98.6 78 18 149/89 (109) 98 09/13/17 15:00 73 I/O 09/13/17 09/13/17 09/13/17 09/14/17 09/14/17 09/14/17 07:00 15:00 23:00 07:00 15:00 23:00 Intake Total 480 ml 920 ml 240 ml Output Total 1180 ml 1350 ml 675 ml Balance -700 ml -430 ml -435 ml Intake Oral 480 ml 920 ml 240 ml Output Urine Total 1150 ml 1350 ml 675 ml Drainage Total 30 ml # Bowel Movements 0 1 Result Diagram: 09/14/17 0445 09/14/17 0445 Imaging Last Impressions Chest X-Ray 09/13/17 0000 Signed Impressions: Service Date/Time: Wednesday, September 13, 2017 03:54 - CONCLUSION: 1. Moderate cardiomegaly with no evidence of pulmonary edema. 2. The right internal jugular central venous line remains in place. Juwan Morrison MD Renal Ultrasound 09/09/17 0000 Signed Impressions: Service Date/Time: Saturday, September 09, 2017 07:42 - CONCLUSION: Stable and unremarkable followup ultrasound of the right lower quadrant transplanted kidney. No evidence of hydronephrosis. Demetrio Kaye MD Objective Remarks GENERAL: This is a well-nourished, well-developed patient, in no apparent distress. NOSE: Nasal bleeding. CARDIOVASCULAR: Regular rate and regular rhythm without murmurs, gallops, or rubs. RESPIRATORY: Clear to auscultation. Breath sounds equal bilaterally. No wheezes , rales, or rhonchi. GASTROINTESTINAL: Abdomen soft, tender in the right side at the surgical site, dressing c/d/i, nondistended. Normal, active bowel sounds MUSCULOSKELETAL: Extremities without clubbing, cyanosis, or edema. NEURO: Alert & Oriented x4 to person, place, time, situation. Moves all ext x4 GENITOURINARY: Penile edema, with tenderness to palpation improving. No rash noted. No erythema. No scrotal edema or pain. Procedures Complex reconstruction of right cadaveric kidney; Right pelvic donor renal transplant. by Dr Castaneda and Dr Caba on 09/08/17 A/P Problem List: (1) ESRD (end stage renal disease) on dialysis ICD Code: N18.6 - End stage renal disease; Z99.2 - Dependence on renal dialysis Status: Acute (2) Hypertension ICD Code: I10 - Essential (primary) hypertension Status: Acute Assessment and Plan ESRD on dialysis admitted for renal transplant S/p Complex reconstruction of right cadaveric kidney. Right pelvic donor renal transplant by Dr Castaneda and Dr Caba on 2/16/[address] Colmenares ff. Resumed home medications Avoid nephrotoxins H/H stable. Monitor Kidney indices improving Meds per kidney transplant team. Received thymo, last dose 09/11/17. On low dose prograf. On prophylactic meds bactrim, valacyclovir. Noted neutropenic 09/12/17, off thymo, neutropenia resolved However 09/13/17 Febrile to 101.9 overnight. Pancultured. Central line removed. Blood cx, ID consulted. Antibiosis started, ID ff. CXR reviewed no signs on PNA Check UA Sputum cx if obtainable Penile tenderness (? balanitis, ? due to finley catheter). Improving. On IV abx per ID. Encourage IS/ ambulation. Nasal bleeding.Resolved. NaCl nasal spray prn Hyperkalemia received Kayexalate, monitor. Other chronic conditions appears stable, monitor. Continue home medications as appropriate Hep C positive Follow-up as outpatient DVT prophylaxis: SCDs Discharge Planning S/p kidney transplant, DC when cleared by surgeon and nephro Discussed with the patient, family at bedside, Dr. Caba the surgeon Problem Qualifiers (1) Hypertension: Qualified Codes: I10 - Essential (primary) hypertension Isabella Teague MD Sep 14, 2017 14:08
--- NOTE | 2017-09-14 15:19 | HHI.NPPN ---
Subjective History of Present Illness 47 year old male with ESRD admitted for donor kidney transplant Additional Remarks doing well Objective Data Data Vital Signs Date Time Temp Pulse Resp B/P (MAP) Pulse Ox O2 Delivery O2 Flow Rate FiO2 09/14/17 14:08 81 09/14/17 13:03 74 09/14/17 12:11 79 09/14/17 11:45 97.7 84 18 134/80 (98) 100 09/14/17 11:45 86 09/14/17 10:22 18 09/14/17 10:19 92 09/14/17 09:01 97 21 09/14/17 09:00 92 09/14/17 08:30 97.3 71 18 127/80 (96) 100 09/14/17 08:30 66 09/14/17 06:14 69 09/14/17 05:00 66 09/14/17 04:08 70 09/14/17 03:46 98.7 63 18 143/85 (104) 97 09/14/17 03:00 83 09/14/17 02:00 72 09/14/17 01:00 66 09/14/17 00:00 72 09/13/17 23:31 98.2 71 18 143/86 (105) 99 09/13/17 23:00 68 09/13/17 22:00 72 09/13/17 21:30 98.3 75 18 141/84 (103) 99 09/13/17 21:00 74 09/13/17 20:08 98 09/13/17 20:00 84 09/13/17 19:00 74 09/13/17 18:00 74 09/13/17 17:00 86 09/13/17 16:00 78 09/13/17 15:39 21 -: 09/14/17 0445 09/14/17 0445 Physical Exam General Appearance: Well Developed, Well Nourished Neck Neck Exam: Neck Supple Pulmonary Resp Exam: Clear Bilaterally, Breath Sounds Equal Cardiology CV Exam: Regular, Normal Sinus Rhythm Gastrointestinal/Abdomen GI Exam: Soft (postsurgical incision right lower abdomen) Extremeties Extremities Exam: Moderate Edema Neurologic Neuro Exam: Sedated Assessment/Plan Problem List: (1) ESRD (end stage renal disease) on dialysis ICD Codes: N18.6 - End stage renal disease; Z99.2 - Dependence on renal dialysis Status: Acute Plan: Patient is doing well now Cefepime/Dapto /line related removed central line follow Cultures Transplant kidney rt now passing more urine, , Cr better Urine output good Monitor electrolytes On Tacrolimus/MMF/Prednisone Prograf 4.6 follow levels dose adjusted per Surgery PCP prophylaxis on Dapsone on K PO4. (2) Hypertension ICD Codes: I10 - Essential (primary) hypertension Status: Acute Plan: Controlled on medication Problem Qualifiers (1) Hypertension: Qualified Codes: I10 - Essential (primary) hypertension John Colmenares MD Sep 14, 2017 15:18
[2017-09-15] VITALS (21 sets, daily range): BP systolic 128–157; BP diastolic 72–97; PULSE 66–95; RESP 16–20; TEMP 98–98.7; O2SAT 96–100
[2017-09-15] MEDS: TACROLIMUS 5 MG CAP PO SCH ×3 (06:00→16:58)
[2017-09-15] MEDS: MYCOPHENOLATE MOFETIL 500 MG TAB PO SCH ×2 (06:56→17:09)
[2017-09-15] MEDS ORDERED: DAPTOMYCIN IV SCH (09:00)
[2017-09-15] MEDS ORDERED: SODIUM CHLORIDE 0.9% IV SCH (09:00)
[2017-09-15] MEDS ORDERED: predniSONE 20 MG TAB PO SCH (09:00)
[2017-09-15] MEDS: NYSTATIN SUSP 500,000 U/5 ML CUP SWISH-SWAL SCH ×3 (09:00→17:09)
[2017-09-15] MEDS: DOCUSATE SODIUM 100 MG CAP PO SCH (09:00)
[2017-09-15] MEDS: SODIUM CHLORIDE 0.9% FLUSH 10 ML FLUSH IV FLUSH SCH (09:00)
[2017-09-15] MEDS: VITAMIN B CMPLX/VITC/FOLIC AC CAP PO SCH (09:00)
[2017-09-15] MEDS ORDERED: Calcium Carbonate Chew CHEW (09:22)
[2017-09-15] MEDS ORDERED: PRED20 PO (09:22)
[2017-09-15] MEDS ORDERED: MYCO500 PO (09:22)
[2017-09-15] MEDS ORDERED: DAPS5TAB PO (09:22)
[2017-09-15] MEDS ORDERED: Nystatin Liq SWISH-SWAL (09:22)
[2017-09-15] MEDS ORDERED: OXYC1TAB63 PO (09:22)
[2017-09-15] MEDS ORDERED: TACR5 PO (09:22)
[2017-09-15] MEDS ORDERED: DOCU1CAP39 PO (09:22)
[2017-09-15] MEDS ORDERED: K-PHTAB PO (09:22)
[2017-09-15] MEDS ORDERED: VALG450 PO (09:22)
[2017-09-15] MEDS ORDERED: ALLO100 PO (09:24)
[2017-09-15] MEDS: SUCROFERRIC OXYHYDROXIDE 500 MG PO SCH ×3 (09:30→17:10)
--- NOTE | 2017-09-15 09:44 | HHI.DS ---
Discharge Summary Admission Date Sep 06, 2017 at 23:12 Discharge Date: Sep 15, 2017 Admitting Diagnosis (1) ESRD (end stage renal disease) on dialysis ICD Code: N18.6 - End stage renal disease; Z99.2 - Dependence on renal dialysis Status: Acute (2) Hypertension ICD Code: I10 - Essential (primary) hypertension Status: Acute Procedures Complex reconstruction of right cadaveric kidney; Right pelvic donor renal transplant. by Dr Castaneda and Dr Caba on 09/08/17 Brief History - From Admission 47 y/o male with a history of ESRD, HLD, HTN, and gout was a direct admit for a kidney transplant by the transplant team today or Monday. Patient states he feels well. Denies any chest pain, sob, fever or chills. CBC/BMP: 09/14/17 0445 09/14/17 0445 Significant Findings Laboratory Tests Test 09/12/17 18:05 09/13/17 04:05 09/13/17 04:50 09/14/17 04:45 Blood Urea Nitrogen 100 MG/DL (7-18) 100 MG/DL (7-18) 92 MG/DL (7-18) Creatinine 7.85 MG/DL (0.60-1.30) 7.67 MG/DL (0.60-1.30) 5.91 MG/DL (0.60-1.30) Calcium Level 8.0 MG/DL (8.5-10.1) 7.9 MG/DL (8.5-10.1) 8.3 MG/DL (8.5-10.1) Potassium Level 3.2 MEQ/L (3.5-5.1) Estimat Glomerular Filtration Rate 9 ML/MIN (>89) 9 ML/MIN (>89) 12 ML/MIN (>89) Urine Turbidity HAZY (CLEAR) Urine Protein 100 mg/dL (NEG-TRACE) Urine Occult Blood LARGE (NEG) Urine WBC 22 /hpf (0-5) Urine Bacteria FEW /hpf (NONE) Urine Mucus FEW /lpf (OCC) Red Blood Count 3.18 MIL/MM3 (4.50-5.90) 3.19 MIL/MM3 (4.50-5.90) Hemoglobin 10.1 GM/DL (13.0-17.0) 10.0 GM/DL (13.0-17.0) Hematocrit 29.9 % (39.0-51.0) 30.0 % (39.0-51.0) Platelet Count 87 TH/MM3 (150-450) 91 TH/MM3 (150-450) Neutrophils (%) (Auto) 95.5 % (16.0-70.0) 95.9 % (16.0-70.0) Lymphocytes (%) (Auto) 1.7 % (9.0-44.0) 1.1 % (9.0-44.0) Lymphocytes # (Auto) 0.1 TH/MM3 (1.0-4.8) 0.1 TH/MM3 (1.0-4.8) Neutrophils % (Manual) 88 % (16-70) Lymphocytes % 1 % (9-44) Metamyelocytes 2 % (0-1) Platelet Estimate LOW (NORMAL) LOW (NORMAL) Ovalocytes 1+ (NORMAL) Tacrolimus (Prograf) Level 2.5 NG/ML (5.0-20.0) 4.6 NG/ML (5.0-20.0) Random Glucose 143 MG/DL (74-106) Sodium Level 135 MEQ/L (136-145) Imaging Last Impressions Chest X-Ray 09/13/17 0000 Signed Impressions: Service Date/Time: Wednesday, September 13, 2017 03:54 - CONCLUSION: 1. Moderate cardiomegaly with no evidence of pulmonary edema. 2. The right internal jugular central venous line remains in place. Juwan Morrison MD Renal Ultrasound 09/09/17 0000 Signed Impressions: Service Date/Time: Saturday, September 09, 2017 07:42 - CONCLUSION: Stable and unremarkable followup ultrasound of the right lower quadrant transplanted kidney. No evidence of hydronephrosis. Demetrio Kaye MD PE at Discharge GENERAL: This is a well-nourished, well-developed patient, in no apparent distress. NOSE: Nasal bleeding. CARDIOVASCULAR: Regular rate and regular rhythm without murmurs, gallops, or rubs. RESPIRATORY: Clear to auscultation. Breath sounds equal bilaterally. No wheezes , rales, or rhonchi. GASTROINTESTINAL: Abdomen soft, tender in the right side at the surgical site, dressing c/d/i, nondistended. Normal, active bowel sounds MUSCULOSKELETAL: Extremities without clubbing, cyanosis, or edema. NEURO: Alert & Oriented x4 to person, place, time, situation. Moves all ext x4 GENITOURINARY: Penile edema, with tenderness to palpation improving. No rash noted. No erythema. No scrotal edema or pain. Hospital Course ESRD on dialysis admitted for renal transplant S/p Complex reconstruction of right cadaveric kidney. Right pelvic donor renal transplant by Dr Castaneda and Dr Caba on 09/08/[address] Colmenares ff. Resumed home medications Avoid nephrotoxins H/H stable. Monitor Kidney indices improving Meds per kidney transplant team. Received thymo, last dose 09/11/17. On low dose prograf. On prophylactic meds bactrim, valacyclovir. Noted neutropenic 09/12/17, off thymo, neutropenia resolved However 09/13/17 Febrile to 101.9 overnight. Pancultured. Central line removed. Blood cx, ID consulted. Antibiosis started, ID ff. CXR reviewed no signs on PNA Check UA normal Sputum cx if obtainable Penile tenderness (? balanitis, ? due to finley catheter). Improving. On IV abx per ID. Blood cultures are negative. Can DC IV antibiotics. If fevers occurs patient to return to ER for repeat blood cultures per ID. Encourage IS/ ambulation. Nasal bleeding. Resolved. NaCl nasal spray prn. Hyperkalemia received Kayexalate, monitor. Other chronic conditions appears stable, monitor. Continue home medications as appropriate. Hep C positive Follow-up as outpatient DVT prophylaxis: SCDs Discharge Planning S/p kidney transplant. Cleared by consultants for DC. Discharged home in stable condition. To follow up as OP with PCP and consultants. If fevers occurs to return to ER for repeat blood cultures IV antibiotics. Pt Condition on Discharge: Stable Discharge Disposition: Discharge Home Discharge Time: > 30 minutes Discharge Instructions DIET: Follow Instructions for: As Tolerated, No Restrictions Activities you can perform: Regular-No Restrictions Follow up Referrals: Nephrology - 1 Week with John Colmenares MD PCP Follow-up - 2-3 Days New Medications: Allopurinol (Zyloprim) 100 Mg Tab 100 MG PO DAILY for Control Inflammation, #30 TAB 5 Refills Dapsone (Dapsone) 25 Mg Tab 50 MG PO DAILY for Exposure Prophylaxis for 90 Days, #180 TAB Docusate Sodium (Dok) 100 Mg Cap 100 MG PO BID for Prevent Constipation, #30 CAP 2 Refills Mycophenolate (Cellcept) 500 Mg Tab 1000 MG PO BID@0600,1800 for Immunosuppression, #180 TAB Oxycodone HCl/Acetaminophen (Oxycodone-Acetaminophen 5-325) 5 Mg-325 Mg Tablet 1 TAB PO Q6H PRN for PAIN SCALE 1 TO 5, #30 TAB Potassium Phosphate Monobasic (K-Phos) 500 Mg Tab 500 MG PO Q12HR for Nutritional Supplement, #30 TAB 2 Refills Prednisone (Prednisone) 20 Mg Tab 20 MG PO DAILY for Immunosuppression for 90 Days, #90 TAB 2 Refills Tacrolimus (Prograf) 5 Mg Cap 5 MG PO DAILY@06,18 for Immunosuppression, #180 CAP Valganciclovir (Valcyte) 450 Mg Tab 450 MG PO TuThSa@0900 for Exposure Prophylaxis for 90 Days, TAB [Calcium Carbonate Chew] () 500 MG CHEW 500 MG CHEW BID@09,16, #30 2 Refills [Nystatin Liq] () 5 ML SUSP 5 ML SWISH-SWAL QID for 90 Days Continued Medications: Cinacalcet (Sensipar) 60 Mg Tab 60 MG PO DAILY, #30 TAB 0 Refills Pantoprazole (Protonix) 40 Mg Tab 40 MG PO DAILY for Reflux, #30 TAB 0 Refills Discontinued Medications: Allopurinol (Allopurinol) 300 Mg Tab 300 MG PO DAILY for Gout, #30 TAB 0 Refills B-Complex W/ C & Folic Acid (Nephro-Michelle) 1 Tab 1 TAB PO DAILY for Nutritional Supplement, #30 TAB 0 Refills Furosemide (Lasix) 80 Mg Tab 80 MG PO BID, #60 TAB 0 Refills Sevelamer Carbonate (Renvela) 800 Mg Tab 3200 MG PO BIDPC for Control phosphorous levels, #180 TAB 0 Refills Sucroferric Oxyhydroxide (Velphoro) 500 Mg Chew 1000 MG CHEW TIDPC for High phosphate levels, #90 TAB 0 Refills Isabella Teague MD Sep 15, 2017 09:44
[2017-09-15 10:01] LABS: BASOPHIL % 0.1 % (0.0-2.0); EOSINOPHIL % 0.5 % (0.0-4.0); HEMATOCRIT 33.9 % (39.0-51.0); HEMOGLOBIN 11.4 GM/DL (13.0-17.0); LYMPH % 1.9 % (9.0-44.0); LYMPHOCYTE # 0.1 TH/MM3 (1.0-4.8); MEAN CELL VOLUME 94.9 FL (80.0-100.0); MEAN CORPUSCULAR HEMOGLOBIN 31.8 PG (27.0-34.0); MEAN CORPUSCULAR HGB CONC 33.5 % (32.0-36.0); MEAN PLATELET VOLUME 9.1 FL (7.0-11.0); MONO % 4.8 % (0.0-8.0); MONOCYTE # 0.3 TH/MM3 (0-0.9); NEUT % 92.7 % (16.0-70.0); PLATELET COUNT 132 TH/MM3 (150-450); RED BLOOD COUNT 3.57 MIL/MM3 (4.50-5.90); RED CELL DISTRIBUTION WIDTH 14.3 % (11.6-17.2); WHITE BLOOD COUNT 5.4 TH/MM3 (4.0-11.0)
[2017-09-15] MEDS: POTASSIUM PHOSPHATE MONOBASIC 500 MG TAB PO SCH (10:09)
[2017-09-15] MEDS: PANTOPRAZOLE SOD 40 MG DELAYED RELEASE TAB PO SCH (10:09)
[2017-09-15] MEDS: CALCIUM CARBONATE 500 MG CHEWABLE TAB CHEW SCH ×2 (10:09→15:57)
[2017-09-15] MEDS: DAPSONE 25 MG TAB PO SCH (10:10)
[2017-09-15] MEDS: CINACALCET HYDROCHLORIDE 30 MG TAB PO SCH (10:10)
[2017-09-15] MEDS: ALLOPURINOL 100 MG TAB PO SCH (10:10)
[2017-09-15 10:22] LABS: BICARBONATE 27.5 MEQ/L (21.0-32.0); CALCIUM 8.2 MG/DL (8.5-10.1); CREATININE 4.02 MG/DL (0.60-1.30); MAGNESIUM 2.4 MG/DL (1.5-2.5); PHOSPHORUS 3.3 MG/DL (2.5-4.9)
[2017-09-15] MEDS: CEFEPIME INJ 1,000 MG in SODIUM CHLORIDE 0.9% INJ 100 ML IV SCH (11:00)
--- NOTE | 2017-09-15 16:25 | HHI.PR ---
Subjective Remarks Ambulating in the hallway. Abdominal pain is controlled by meds. No fever or chills overnight. No nausea or vomiting no diarrhea or constipation. Passing gas and had a bowel movement. Objective Vitals Vital Signs Date Time Temp Pulse Resp B/P (MAP) Pulse Ox O2 Delivery O2 Flow Rate FiO2 09/15/17 16:00 79 09/15/17 15:00 78 09/15/17 15:00 98.1 78 20 128/75 (92) 100 09/15/17 14:00 94 09/15/17 13:00 95 09/15/17 12:00 93 09/15/17 11:00 72 09/15/17 11:00 98.0 80 20 157/86 (109) 100 09/15/17 10:00 84 09/15/17 09:00 72 09/15/17 08:38 96 21 09/15/17 08:00 84 09/15/17 07:00 72 09/15/17 07:00 98.7 77 20 135/72 (93) 100 09/15/17 06:00 72 09/15/17 05:00 66 09/15/17 04:00 66 09/15/17 03:30 98.6 68 16 132/97 (109) 97 09/15/17 03:00 75 09/15/17 02:00 70 09/15/17 01:00 68 09/15/17 00:00 84 09/14/17 23:00 98.4 77 18 133/82 (99) 100 09/14/17 23:00 61 09/14/17 22:00 70 09/14/17 21:00 70 09/14/17 20:07 100 21 09/14/17 20:00 98.4 78 18 121/78 (92) 100 09/14/17 20:00 76 09/14/17 19:00 82 09/14/17 18:05 80 09/14/17 17:00 89 I/O 09/14/17 09/14/17 09/14/17 09/15/17 09/15/17 09/15/17 07:00 15:00 23:00 07:00 15:00 23:00 Intake Total 240 ml 860 ml 880 ml Output Total 675 ml 1350 ml 1900 ml Balance -435 ml -490 ml -1020 ml Intake Oral 240 ml 860 ml 680 ml IV Total 200 ml Output Urine Total 675 ml 1350 ml 1900 ml Stool Total 0 ml # Bowel Movements 1 2 Result Diagram: 09/15/1790409/15/17904 Imaging Last Impressions Chest X-Ray 09/13/17 0000 Signed Impressions: Service Date/Time: Wednesday, September 13, 2017 03:54 - CONCLUSION: 1. Moderate cardiomegaly with no evidence of pulmonary edema. 2. The right internal jugular central venous line remains in place. Juwan Morrison MD Renal Ultrasound 09/09/17 0000 Signed Impressions: Service Date/Time: Saturday, September 09, 2017 07:42 - CONCLUSION: Stable and unremarkable followup ultrasound of the right lower quadrant transplanted kidney. No evidence of hydronephrosis. Demetrio Kaye MD Objective Remarks GENERAL: This is a well-nourished, well-developed patient, in no apparent distress. NOSE: Nasal bleeding. CARDIOVASCULAR: Regular rate and regular rhythm without murmurs, gallops, or rubs. RESPIRATORY: Clear to auscultation. Breath sounds equal bilaterally. No wheezes , rales, or rhonchi. GASTROINTESTINAL: Abdomen soft, tender in the right side at the surgical site, dressing c/d/i, nondistended. Normal, active bowel sounds MUSCULOSKELETAL: Extremities without clubbing, cyanosis, or edema. NEURO: Alert & Oriented x4 to person, place, time, situation. Moves all ext x4 GENITOURINARY: Penile edema, with tenderness to palpation improving. No rash noted. No erythema. No scrotal edema or pain. Procedures Complex reconstruction of right cadaveric kidney; Right pelvic donor renal transplant. by Dr Castaneda and Dr Caba on 09/08/17 A/P Problem List: (1) ESRD (end stage renal disease) on dialysis ICD Code: N18.6 - End stage renal disease; Z99.2 - Dependence on renal dialysis Status: Acute (2) Hypertension ICD Code: I10 - Essential (primary) hypertension Status: Acute Assessment and Plan ESRD on dialysis admitted for renal transplant S/p Complex reconstruction of right cadaveric kidney. Right pelvic donor renal transplant by Dr Castaneda and Dr Caba on 09/08/[address] Darrian deluca. Resumed home medications Avoid nephrotoxins H/H stable. Monitor Kidney indices improving Meds per kidney transplant team. Received thymo, last dose 09/11/17. On low dose prograf. On prophylactic meds bactrim, valacyclovir. Noted neutropenic 09/12/17, off thymo, neutropenia resolved However 09/13/17 Febrile to 101.9 overnight. Pancultured. Central line removed. Blood cx, ID consulted. Antibiosis started, ID ff. CXR reviewed no signs on PNA Check UA Sputum cx if obtainable Penile tenderness (? balanitis, ? due to finley catheter). Improving. On IV abx per ID. Encourage IS/ ambulation. Nasal bleeding.Resolved. NaCl nasal spray prn Hyperkalemia received Kayexalate, monitor. Other chronic conditions appears stable, monitor. Continue home medications as appropriate Hep C positive Follow-up as outpatient DVT prophylaxis: SCDs Discharge Planning S/p kidney transplant, DC when cleared by surgeon and nephro Discussed with the patient, family at bedside, Dr. Caba the surgeon Problem Qualifiers (1) Hypertension: Qualified Codes: I10 - Essential (primary) hypertension Isabella Teague MD Sep 15, 2017 16:25
[2017-09-15] MEDS: oxyCODONE/ACETAMINOPHEN 5 MG/325 MG TAB PO PRN (16:59)
== END 2017-09-15 18:35 | disposition home or self-care (01) | DRG 652 ==
LOC: HCPC 23:12
PROVIDERS: ADMIT Hospitalist; ATTEND Hospitalist
PROC: 5A1D70Z Performance of Urinary Filtration, Intermittent, Less than 6 Hours Per Day (ICD-10-PCS; 2017-09-07)
PROC: 0TY00Z0 Transplantation of Right Kidney, Allogeneic, Open Approach (ICD-10-PCS; principal; 2017-09-08 10:07)
DX: I12.0 Hypertensive chronic kidney disease with stage 5 chronic kidney disease or end stage renal disease (principal); N17.9 Acute kidney failure, unspecified; D70.9 Neutropenia, unspecified; N18.6 End stage renal disease; E87.5 Hyperkalemia; E66.9 Obesity, unspecified; E78.5 Hyperlipidemia, unspecified; K21.9 Gastro-esophageal reflux disease without esophagitis; M10.9 Gout, unspecified; I25.10 Atherosclerotic heart disease of native coronary artery without angina pectoris; R50.81 Fever presenting with conditions classified elsewhere; R04.0 Epistaxis; Z68.32 Body mass index [BMI] 32.0-32.9, adult; Z87.440 Personal history of urinary (tract) infections; Z99.2 Dependence on renal dialysis; Z87.11 Personal history of peptic ulcer disease; B19.20 Unspecified viral hepatitis C without hepatic coma
CPT/HCPCS: 36591; 71045; 71046; 76776; 76937; 80048; 80053; 80074; 80197; 81001; 82040; 82948; 83735; 84100; 84155; 85007; 85014; 85018; 85025; 85027; 85610; 86850; 86900; 86901; 86920; 87040; 87070; 87071; 87086; 87102; 87205; 90935; 93005; 94150; J0171; J0330; J0610; J0690; J0692; J0878; J1100; J1170; J1200; J1265; J1580; J1644; J1720; J1940; J2270; J2370; J2405; J2440; J2710; J2930; J3010; J7030; J7040; J7507; J7511; J7512; J7517; P9045; Q0163

== ENCOUNTER 2017-12-21 11:52 | Inpatient (IN) | payer MEDICARE, BC ==
[~2017-12-21] VITALS: Ht 152.4 cm; Wt 112.5 kg
[~2017-12-21 11:52] MED LIST: ALLO100 PO; Calcium Carbonate Chew CHEW; DAPS5TAB PO; DOCU1CAP39 PO; K-PHTAB PO; MYCO500 PO; Nystatin Liq SWISH-SWAL; OXYC1TAB63 PO; PRED20 PO; PROT40TA PO; SENS60TA PO; TACR5 PO; VALG450 PO
[2017-12-21 20:15] VITALS: BP 136/75; PULSE 86; RESP 16; TEMP 101.8; O2SAT 95
[2017-12-21 20:30] VITALS: TEMP 100.2
[2017-12-21] MEDS ORDERED: MAGN200T9 (21:00)
[2017-12-21] MEDS ORDERED: RENATAB6 PO (21:00)
--- NOTE | 2017-12-21 21:40 | PD.CONS ---
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 Yesterday noted hematuria (had a urinalysis and urine culture done at the outpatient clinic at [facility] in [place]. Then this Am, had salazra to 103. Sen tto the ED. Labs repeated. CT done; c/w probable tranplant pyelonephritis. > Also had some associated anorexia. Said prior to noticing the hematuria yesterday that he had been feeling fine. Denies any other symptomatology. Review of Systems Constitutional: COMPLAINS OF: Fever Gastrointestinal: COMPLAINS OF: Anorexia Genitourinary: COMPLAINS OF: Hematuria Urine output seesm slightly decreased from normal postop. Past Family Social History Allergies: Coded Allergies: Sulfa (Sulfonamide Antibiotics) (Unverified Allergy, Intermediate, Respiratory Failure and Swelling, 03/07/17) Uncoded Allergies: seasonal allergies (Allergy, Mild, 08/18/16) Past Medical History includes: gout, htn, CAD, FSGS Past Surgical History Includes: left arm AVF, right wrist surgery for torn ligament. Reported Medications includes prograf, cellcept (hel since this AM), prednisone, protonix, allopurinol, multivitamin, k-phos, Magox, tums, sensipar, imodium, metamucil Family History Includes: several relatives with htn, DM, obesity, CAD. Maternal grandmother - had [place] Social History No tob/etoh/illicit drugs Physical Exam Vital Signs most recent temp 100.2 Physical Exam GENERAL: This is a well-nourished, well-developed patient, in no apparent distress, but looks a little unwell. SKIN: No rashes, ecchymoses or lesions. Cool and dry. HEAD: Atraumatic. Normocephalic. No temporal or scalp tenderness. EYES: Pupils equal round and reactive. Extraocular motions intact. No scleral icterus. No injection or drainage. ENT: Nose without bleeding, purulent drainage or septal hematoma. Throat without erythema, tonsillar hypertrophy or exudate. Uvula midline. Airway patent. NECK: Trachea midline. No JVD or lymphadenopathy. Supple, nontender, no meningeal signs. CARDIOVASCULAR: Regular rate and rhythm without murmurs, gallops, or rubs. No carotid bruits. RESPIRATORY: Clear to auscultation. Breath sounds equal bilaterally. No wheezes , rales, or rhonchi. GASTROINTESTINAL: Abdomen soft, non-tender, nondistended. No hepato-splenomegaly , or palpable masses. No guarding. MUSCULOSKELETAL: Extremities without clubbing, cyanosis, or edema. No joint tenderness, effusion, or edema noted. No calf tenderness. Negative Homans sign bilaterally. palpable distal pulses. NEUROLOGICAL: Awake and alert. Cranial nerves II through XII intact. Motor and sensory grossly within normal limits. Five out of 5 muscle strength in all muscle groups. Normal speech. Assessment and Plan Problem List: (1) ESRD (end stage renal disease) on dialysis ICD Codes: N18.6 - End stage renal disease; Z99.2 - Dependence on renal dialysis Status: Acute (2) Hyperlipidemia ICD Codes: E78.5 - Hyperlipidemia, unspecified Status: Chronic (3) Hypertension ICD Codes: I10 - Essential (primary) hypertension Status: Acute (4) Kidney transplant status, cadaveric ICD Codes: Z94.0 - Kidney transplant status Assessment and Plan 47 yom s/p recent cadaveric renal transplant. (09/08/17). transferred from [place] with probable pyelonephritis. Reportedly had a CT scan this [place] and the report suggest pyelo, but the images were not sent. Will see if we can get them to send the discs. Patient has been started on antibiotics. Denies abd pain. . Has the anorexia and hematuria, but denies any other symptoms. Will continue the antibiotics. Nirav hold his cellcept for now. Continue his other immunosuppressants. Continue po diet Von Caba Jr., MD December 21, 2017 21:40
[2017-12-21] MEDS ORDERED: SODIUM CHLORIDE 0.9% FLUSH 10 ML FLUSH IV FLUSH PRN (21:45)
[2017-12-21] MEDS ORDERED: oxyCODONE/ACETAMINOPHEN 5 MG/325 MG TAB PO PRN (21:45)
[2017-12-21] MEDS ORDERED: NALOXONE HCL 0.4 MG/ML AMP IV PUSH PRN (21:45)
[2017-12-21 22:00] VITALS: PULSE 82
--- NOTE | 2017-12-21 22:32 | HHI.HP ---
HPI Service [facility] Hospitalists Primary Care Physician No Primary Care Physician Admission Diagnosis Diagnoses: Chief Complaint: blood in urine Travel History International Travel<30 Days: No Contact w/Intl Traveler <30 Da: No History of Present Illness 47 y/o male with a history of HTN, Gout and a kidney transplant, in Aug 2017 was sent to [facility] with complaints of blood in his urine. Yesterday he presented to a clinic in [place] and a urinalysis and culture was completes. UA showed pyelonephritis and patient was transferred to follow up with Dr. Caba, his transplant surgeon. He denies any associated symptoms, no dysuria, frequency, chest pain or sob. Review of Systems Except as stated in HPI: all other systems reviewed are Neg Past Family Social History Past Medical History gout htn CAD CKD s/p Kidney transplant Past Surgical History Left arm AVF right wrist surgery for torn ligament. Kidney transplant Aug 2017 Reported Medications Reported Meds & Active Scripts Active Zyloprim (Allopurinol) 100 Mg Tab 100 Mg PO DAILY Prograf (Tacrolimus) 5 Mg Cap 5 Mg PO DAILY@06,18 Cellcept (Mycophenolate Mofetil) 500 Mg Tab 1,000 Mg PO BID@0600,1800 Prednisone 20 Mg Tab 20 Mg PO DAILY 90 Days Dok (Docusate Sodium) 100 Mg Cap 100 Mg PO BID [Calcium Carbonate Chew] 500 MG Chew 500 Mg CHEW BID@09,16 K-Phos (Potassium Phosphate Monobasic) 500 Mg Tab 500 Mg PO Q12HR Oxycodone-Acetaminophen 5-325 (Oxycodone HCl/Acetaminophen) 5 Mg-325 Mg Tablet 1 Tab PO Q6H PRN Valcyte (Valganciclovir) 450 Mg Tab 450 Mg PO TUTHSA@0900 90 Days Dapsone 25 Mg Tab 50 Mg PO DAILY 90 Days [Nystatin Liq] 5 ML Susp 5 Ml SWISH-SWAL QID 90 Days Reported Mag-Oxide (Magnesium Oxide) 200 Mg Magnesium Tablet 2 Sydnee-Michelle Rx (B-Complex W/ C & Folic Acid) 1 Tab 1 Tab PO DAILY Protonix (Pantoprazole Sodium) 40 Mg Tab 40 Mg PO DAILY Sensipar (Cinacalcet) 60 Mg Tab 60 Mg PO DAILY Allergies: Coded Allergies: Sulfa (Sulfonamide Antibiotics) (Unverified Allergy, Intermediate, Respiratory Failure and Swelling, 03/07/17) Uncoded Allergies: seasonal allergies (Allergy, Mild, 08/18/16) Active Ordered Medications Current Medications Medications (Trade) Dose Ordered Sig/Alisha Route Start Time Stop Time Status Last Admin (NS Flush) 2 ml UNSCH PRN IV FLUSH 12/21/17 21:45 (NS Flush) 2 ml BID IV FLUSH 12/22/17 09:00 (Narcan Inj) 0.4 mg UNSCH PRN IV PUSH 12/21/17 21:45 Ceftriaxone Sodium 1000 mg/ Sodium Chloride 100 ml @ 200 mls/hr Q24H IV 12/21/17 22:00 (Nephrocaps) 1 cap DAILY PO 12/22/17 09:00 (Dapsone) 50 mg DAILY PO 12/22/17 09:00 (Colace) 100 mg BID PO 12/22/17 09:00 (Percocet 5-325 Mg) 1 tab Q6H PRN PO 12/21/17 21:45 (Valcyte) 450 mg TuThSa@0900 PO 12/23/17 09:00 (Prograf) 5 mg DAILY@06 PO 12/22/17 06:00 (Prograf) 4 mg DAILY@1800 PO 12/22/17 18:00 (Deltasone) 5 mg DAILY PO 12/22/17 09:00 (Protonix) 40 mg DAILY PO 12/22/17 09:00 (Zyloprim) 100 mg DAILY PO 12/22/17 09:00 (Theragran) 1 tab DAILY PO 12/22/17 09:00 (K-Phos) 500 mg DAILY PO 12/22/17 09:00 (Mag-Ox) 400 mg DAILY PO 12/22/17 09:00 (Tums Chew) 500 mg Q12HR CHEW 12/22/17 09:00 (Sensipar) 60 mg DAILY PO 12/22/17 09:00 (Metamucil Fiber Sf Pkt) 1 pkt DAILY PO 12/22/17 09:00 (Tylenol) 650 mg Q6HR PRN PO 12/21/17 21:45 Family History several relatives with htn, DM, obesity, CAD. Maternal grandmother -had [place] Social History Patient denies any tobacco, alcohol or illicit drug use. Physical Exam Vital Signs Vital Signs Date Time Temp Pulse Resp B/P (MAP) Pulse Ox O2 Delivery O2 Flow Rate FiO2 12/21/17 20:30 100.2 12/21/17 20:15 101.8 86 16 136/75 (95) 95 Physical Exam GENERAL: This is a well-nourished, well-developed patient, in no apparent distress. SKIN: No rashes, ecchymoses or lesions. Cool and dry. HEAD: Atraumatic. Normocephalic. No temporal or scalp tenderness. EYES: Pupils equal round and reactive. Extraocular motions intact. CARDIOVASCULAR: Regular rate and rhythm without murmurs, gallops, or rubs. RESPIRATORY: Clear to auscultation. Breath sounds equal bilaterally. No wheezes , rales, or rhonchi. GASTROINTESTINAL: Abdomen soft, non-tender, nondistended. MUSCULOSKELETAL: Extremities without clubbing, cyanosis, or edema. NEUROLOGICAL: Awake and alert. Normal speech. Caprini VTE Risk Assessment Caprini VTE Risk Assessment: No/Low Risk (score <= 1) Caprini Risk Assessment Model Point Value = 1 Point Value = 2 Point Value = 3 Point Value = 5 Age 41-60 Minor surgery BMI > 25 kg/m2 Swollen legs Varicose veins or History of unexplained or recurrent spontaneous Oral contraceptives or hormone replacement Sepsis (< 1 month) Serious lung disease, including pneumonia (< 1 month) Abnormal pulmonary function Acute myocardial infarction Congestive heart failure (< 1 month) History of inflammatory bowel disease Medical patient at bed rest Age 61-74 Arthroscopic surgery Major open surgery (> 45 min) Laparoscopic surgery (> 45 min) Malignancy Confined to bed (> 72 hours) Immobilizing plaster cast Central venous access Age >= 75 History of VTE Family history of VTE Factor V Leiden Prothrombin 23000O Lupus anticoagulant Anticardiolipin antibodies Elevated serum homocysteine Heparin-induced thrombocytopenia Other congenital or acquired thrombophilia Stroke (< 1 month) Elective arthroplasty Hip, pelvis, or leg fracture Acute spinal cord injury (< 1 month) Prophylaxis Regimen Total Risk Factor Score Risk Level Prophylaxis Regimen 0-1 Low Early ambulation 2 Moderate Order ONE of the following: *Sequential Compression Device (SCD) *Heparin 5000 units SQ BID 3-4 Higher Order ONE of the following medications: *Heparin 5000 units SQ TID *Enoxaparin/Lovenox 40 mg SQ daily (WT < 150 kg, CrCl > 30 mL/min) *Enoxaparin/Lovenox 30 mg SQ daily (WT < 150 kg, CrCl > 10-29 mL/min) *Enoxaparin/Lovenox 30 mg SQ BID (WT < 150 kg, CrCl > 30 mL/min) AND/OR *Sequential Compression Device (SCD) 5 or more Highest Order ONE of the following medications: *Heparin 5000 units SQ TID (Preferred with Epidurals) *Enoxaparin/Lovenox 40 mg SQ daily (WT < 150 kg, CrCl > 30 mL/min) *Enoxaparin/Lovenox 30 mg SQ daily (WT < 150 kg, CrCl > 10-29 mL/min) *Enoxaparin/Lovenox 30 mg SQ BID (WT < 150 kg, CrCl > 30 mL/min) AND *Sequential Compression Device (SCD) Assessment and Plan Assessment and Plan 47 y/o male with a history of HTN, HLD, Gout and a kidney transplant, in Aug 2017 was sent to [email or web address] with complaints of blood in his urine. Pyelonephritis s/p renal transplant -IVF for hydration -IV antibiotics: Rocephin -Consult transplant surgeon Dr. Caba -Cont home medications, hold cell Cept per Dr. Caba -CBC in AM -Pain management with PO [place] DVT prophylaxis: SCDs Discussed Condition With Patient and RN Physician Certification 2 Midnight Certification Type: Admission for Inpatient Services Order for Inpatient Services The services are ordered in accordance with Medicare regulations or non- Medicare payer requirements, as applicable. In the case of services not specified as inpatient-only, they are appropriately provided as inpatient services in accordance with the 2-midnight benchmark. Estimated LOS (days): 2 days is the estimated time the patient will need to remain in the hospital, assuming treatment plan goals are met and no additional complications. Post-Hospital Plan: Pricila Jaffe December 21, 2017 22:32
[2017-12-21 23:00] VITALS: BP 127/62; PULSE 64; PULSE 71; RESP 16; O2SAT 96
[2017-12-21] MEDS: cefTRIAXone INJ 1,000 MG in SODIUM CHLORIDE 0.9% INJ 100 ML IV SCH (23:17)
[2017-12-22] VITALS (26 sets, daily range): BP systolic 119–147; BP diastolic 58–79; PULSE 62–87; RESP 16–18; TEMP 98.7–102.2; O2SAT 97–100
[2017-12-22 04:26] LABS: AUTOMATED NEUTROPHIL # 7.9 TH/MM3 (1.8-7.7); BASOPHIL % 0.4 % (0.0-2.0); HEMATOCRIT 39.4 % (39.0-51.0); HEMOGLOBIN 13.1 GM/DL (13.0-17.0); LYMPH % 4.3 % (9.0-44.0); LYMPHOCYTE # 0.4 TH/MM3 (1.0-4.8); MEAN CELL VOLUME 90.5 FL (80.0-100.0); MEAN CORPUSCULAR HGB CONC 33.2 % (32.0-36.0); MEAN PLATELET VOLUME 8.5 FL (7.0-11.0); MONOCYTE # 1.2 TH/MM3 (0-0.9); NEUT % 82.3 % (16.0-70.0); PLATELET COUNT 162 TH/MM3 (150-450); RED BLOOD COUNT 4.36 MIL/MM3 (4.50-5.90); RED CELL DISTRIBUTION WIDTH 14.6 % (11.6-17.2); WHITE BLOOD COUNT 9.5 TH/MM3 (4.0-11.0)
[2017-12-22 04:47] LABS: BICARBONATE 21.6 MEQ/L (21.0-32.0); CALCIUM 8.6 MG/DL (8.5-10.1); CREATININE 2.17 MG/DL (0.60-1.30); MAGNESIUM 1.4 MG/DL (1.5-2.5); PHOSPHORUS 1.5 MG/DL (2.5-4.9)
[2017-12-22] MEDS: ACETAMINOPHEN 325 MG TAB PO PRN ×2 (05:27→13:30)
[2017-12-22] MEDS: TACROLIMUS 5 MG CAP PO SCH (06:00)
[2017-12-22] MEDS ORDERED: TACROLIMUS 5 MG CAP PO SCH (06:00)
[2017-12-22 07:50] LABS: BANDS 17 % (0-6); LYMPHOCYTES 5 % (9-44); METAMYELOCYTES 1 % (0-1); MONOCYTES 8 % (0-8); NEUTROPHIL # MANUAL DIFF 8.3 TH/MM3 (1.8-7.7); POLYS (SEG NEUTROPHILS) 69 % (16-70)
--- NOTE | 2017-12-22 07:59 | HHI.PR ---
Subjective Remarks Had spiked a fever last night. Afebrile overnight. Urine is clearing up less blood in the urine noted today. Some burning and pain with urination. Denies having any back pain. No fever or chills. Objective Vitals Vital Signs Date Time Temp Pulse Resp B/P (MAP) Pulse Ox O2 Delivery O2 Flow Rate FiO2 12/22/17 07:15 73 12/22/17 06:13 100.5 86 12/22/17 06:00 82 12/22/17 05:30 102.0 87 16 126/79 (95) 97 12/22/17 05:00 81 12/22/17 04:00 78 12/22/17 03:00 76 12/22/17 02:00 78 12/22/17 01:00 72 12/22/17 00:00 70 12/21/17 23:00 71 16 127/62 (83) 96 12/21/17 23:00 64 12/21/17 22:00 82 12/21/17 20:30 100.2 12/21/17 20:15 101.8 86 16 136/75 (95) 95 I/O 12/21/17 12/21/17 12/21/17 12/22/17 12/22/17 12/22/17 07:00 15:00 23:00 07:00 15:00 23:00 Intake Total 480 ml Output Total 1070 ml Balance -590 ml Intake Oral 480 ml Output Urine Total 1070 ml # Bowel Movements 0 Result Diagram: 12/22/17 0352 12/22/17 0352 Imaging Last Impressions Renal Ultrasound 12/22/17 0000 Signed Impressions: CONCLUSION: 1. The resistive indices are approximately 0.6-0.7. This is within normal limi ts and unchanged from previous examination. 2. There is no hydronephrosis. No perinephric fluid collections are identified . 3. Appearance is stable compared to the previous study dated 09/25/2017. Objective Remarks GENERAL: This is a well-nourished, well-developed patient, in no apparent distress. CARDIOVASCULAR: Regular rate and rhythm without murmurs, gallops, or rubs. RESPIRATORY: Clear to auscultation. Breath sounds equal bilaterally. No wheezes , rales, or rhonchi. GASTROINTESTINAL: Abdomen soft, non-tender, nondistended. MUSCULOSKELETAL: Extremities without clubbing, cyanosis, or edema. NEUROLOGICAL: Awake and alert. Normal speech. A/P Assessment and Plan 47 y/o male with a history of HTN, HLD, Gout and a kidney transplant, in Aug 2017 was sent to [facility] with complaints of blood in his urine. Pyelonephritis s/p renal transplant UTI Hematuria Bacteremia ( per Dr Caba patient with GNR) IVF for hydration IV antibiotics: Rocephin. Monitor urine cultures ( will have report from other hospital also) Consult transplant surgeon Dr. Caba Cont home medications, hold cell Cept per Dr. Caba CBC in AM Pain management with PO [place] Repeat blood cultures 12/21/17 NTD. Repeat blood cultures tomorrow 12/23. Might consider ID consult. DVT prophylaxis: SCDs Discussed Condition With Patient, nurse Discussed with Dr Durbin surgeon Isabella Teague MD Dec 22, 2017 07:59
[2017-12-22] MEDS: PSYLLIUM HUSK SF 3.4 GM in 5.8 GM PKT PO SCH (08:46)
[2017-12-22] MEDS: POTASSIUM PHOSPHATE MONOBASIC 500 MG TAB PO SCH (08:47)
[2017-12-22] MEDS: CALCIUM CARBONATE 500 MG CHEWABLE TAB CHEW SCH ×2 (08:47→21:23)
[2017-12-22] MEDS: CINACALCET HYDROCHLORIDE 30 MG TAB PO SCH (08:47)
[2017-12-22] MEDS: DOCUSATE SODIUM 100 MG CAP PO SCH ×2 (08:48→21:00)
[2017-12-22] MEDS: ALLOPURINOL 100 MG TAB PO SCH (08:48)
[2017-12-22] MEDS: MULTIVITAMIN TAB PO SCH (08:48)
[2017-12-22] MEDS: VITAMIN B CMPLX/VITC/FOLIC AC CAP PO SCH (08:48)
[2017-12-22] MEDS: predniSONE 5 MG TAB PO SCH (08:48)
[2017-12-22] MEDS: MAGNESIUM OXIDE 400 MG TAB PO SCH (08:48)
[2017-12-22] MEDS: PANTOPRAZOLE SOD 40 MG DELAYED RELEASE TAB PO SCH (08:48)
[2017-12-22] MEDS: SODIUM CHLORIDE 0.9% FLUSH 10 ML FLUSH IV FLUSH SCH ×2 (08:51→21:00)
[2017-12-22] MEDS ORDERED: CINACALCET HYDROCHLORIDE 30 MG TAB PO SCH (09:00)
[2017-12-22] MEDS ORDERED: NON-FORMULARY DRUG (Cinacalcet (Sensipar) 60 MG) PO SCH (09:00)
[2017-12-22] MEDS ORDERED: DAPSONE 25 MG TAB PO SCH (09:00)
[2017-12-22] MEDS ORDERED: PANTOPRAZOLE SOD 40 MG DELAYED RELEASE TAB PO SCH (09:00)
[2017-12-22] MEDS ORDERED: predniSONE 20 MG TAB PO SCH (09:00)
[2017-12-22] MEDS ORDERED: ALLOPURINOL 100 MG TAB PO SCH (09:00)
--- NOTE | 2017-12-22 09:38 | HHI.PR ---
Subjective Remarks Feels some fatigue, overall feels malaise. Objective Vital Signs Date Time Temp Pulse Resp B/P (MAP) Pulse Ox O2 Delivery O2 Flow Rate FiO2 12/22/17 09:00 75 12/22/17 08:00 81 12/22/17 07:15 99.1 79 16 124/72 (89) 97 12/22/17 07:15 73 12/22/17 06:13 100.5 86 12/22/17 06:00 82 12/22/17 05:30 102.0 87 16 126/79 (95) 97 12/22/17 05:00 81 12/22/17 04:00 78 12/22/17 03:00 76 12/22/17 02:00 78 12/22/17 01:00 72 12/22/17 00:00 70 12/21/17 23:00 71 16 127/62 (83) 96 12/21/17 23:00 64 12/21/17 22:00 82 12/21/17 20:30 100.2 12/21/17 20:15 101.8 86 16 136/75 (95) 95 I/O 12/21/17 12/21/17 12/21/17 12/22/17 12/22/17 12/22/17 07:00 15:00 23:00 07:00 15:00 23:00 Intake Total 480 ml Output Total 1070 ml Balance -590 ml Intake Oral 480 ml Output Urine Total 1070 ml # Bowel Movements 0 Result Diagram: 12/22/17 0352 12/22/17 0352 Objective Remarks Resp- CTAB CV-s1s2 Abd-+ BS, soft NT/ND Ext- Calves soft NT B Assessment and Plan Problem List: (1) ESRD (end stage renal disease) on dialysis ICD Codes: N18.6 - End stage renal disease; Z99.2 - Dependence on renal dialysis Status: Acute (2) Hyperlipidemia ICD Codes: E78.5 - Hyperlipidemia, unspecified Status: Chronic (3) Hypertension ICD Codes: I10 - Essential (primary) hypertension Status: Acute (4) Kidney transplant status, cadaveric ICD Codes: Z94.0 - Kidney transplant status Assessment and Plan 47 yom s/p recent cadaveric renal transplant. (09/08/17). transferred from [place] with probable pyelonephritis. Reportedly had a CT scan this AM and the report suggested pyelo, but the images were not sent. Will see if we can get them to send the discs. Patient has been started on antibiotics. Denies abd pain. . Has the anorexia and hematuria, but denies any other symptoms. Will continue the antibiotics. Will hold his cellcept for now. Continue his other immunosuppressants. Continue po diet Patient febrile to 102 this Am. Feels malaised. Will baptiste-culture if spikes again. Will order renal transplant US. Continue antibiosis Von Caba Jr., MD Dec 22, 2017 09:38
--- NOTE | 2017-12-22 10:49 | RADRPT ---
EXAM DATE: 12/22/2017 10:37 AM EDT AGE/SEX: 47 years / Male INDICATIONS: Increased lab values. Right kidney transplant. CLINICAL DATA: This is the patient's initial encounter. Patient reports that signs and symptoms have been present for 2 days and indicates a pain score of 0/10. MEDICAL/SURGICAL HISTORY: . Hypertension. Gastrointestinal ulcer. Sleep apnea. Renal failure. C oronary artery disease. . Right renal transplant. Right wrist surgery. Endoscopic GI ulcer repair. COMPARISON: [facility] – [place], [place]NEY / TRANSPLANT, 09/25/2017. . No external comparison. MEASUREMENTS: Transplant Kidney:__10.8 x 5.7 x 5.7 cm Location:__Right lower quadrant Arcuate Arteries Resistive Index: Upper - 0.7 mid-0.7 Lower - 0.6 Main Renal Artery Velocity:__128.3 Main Renal Vein:__Patent External Iliac Artery Velocity:__155 External Iliac Vein:__Patent FINDINGS: Transplant Kidney: Normal cortical thickness and echotexture. No hydronephrosis, stone, or mass. N o peritransplant fluid collection. Urinary Bladder: Within normal limits given the degree of distension. CONCLUSION: 1. The resistive indices are approximately 0.6-0.7. This is within normal limits and unchanged from previous examination. 2. There is no hydronephrosis. No perinephric fluid collections are identified. 3. Appearance is stable compared to the previous study dated 09/25/2017. Electronically signed by: Reese Alexis MD 12/22/2017 10:47 AM EDT
[2017-12-22 14:25] LABS: BILIRUBIN, URINE NEG (NEG); BLOOD, URINE LARGE (NEG); GLUCOSE,URINE NEG (NEG); KETONE, URINE NEG (NEG); NITRITE,URINE NEG (NEG); PH, URINE 5.5 (5.0-8.5); URINE LEUKOCYTE ESTERASE MOD (NEG); WHITE BLOOD CELL CLUMPS RARE
[2017-12-22 14:40] LABS: BACTERIA, URINE FEW /hpf; URINE COLOR DARK-YELLOW (YELLW/STRAW)
--- NOTE | 2017-12-22 16:56 | PD.CONS ---
HPI Service Nephrology Consult Requested By Dr. Caba Reason for Consult Pyelonephritis status post kidney transplant Primary Care Physician No Primary Care Physician History of Present Illness Patient is a 47-year-old -[place] male with a history of kidney transplant 09/08/2017, he did well as an outpatient and was coming in with improving kidney functions maintained on prednisone, Prograf and CellCept, he stated that he felt sick on Monday and had fever, passed blood in the urine and went to the emergency, he was admitted for possible pyelonephritis in [facility] and transferred to [facility] last night, he is still having ongoing fevers. Review of Systems Constitutional: COMPLAINS OF: Fatigue Genitourinary: COMPLAINS OF: Hematuria, Dysuria Musculoskeletal: COMPLAINS OF: Muscle aches Past Family Social History Allergies: Coded Allergies: Sulfa (Sulfonamide Antibiotics) (Unverified Allergy, Intermediate, Respiratory Failure and Swelling, 03/07/17) Uncoded Allergies: seasonal allergies (Allergy, Mild, 08/18/16) Past Medical History End-stage renal disease Kidney transplant 09/08/2017 Hypertension Peptic ulcer disease Anemia Past Surgical History History of AV fistula Kidney transplant Ligament repair in wrist Reported Medications Reported Meds & Active Scripts Active Zyloprim (Allopurinol) 100 Mg Tab 100 Mg PO DAILY Prograf (Tacrolimus) 5 Mg Cap 5 Mg PO DAILY@06,18 Cellcept (Mycophenolate Mofetil) 500 Mg Tab 1,000 Mg PO BID@0600,1800 Prednisone 20 Mg Tab 20 Mg PO DAILY 90 Days Dok (Docusate Sodium) 100 Mg Cap 100 Mg PO BID [Calcium Carbonate Chew] 500 MG Chew 500 Mg CHEW BID@,16 K-Phos (Potassium Phosphate Monobasic) 500 Mg Tab 500 Mg PO Q12HR Oxycodone-Acetaminophen 5-325 (Oxycodone HCl/Acetaminophen) 5 Mg-325 Mg Tablet 1 Tab PO Q6H PRN Valcyte (Valganciclovir) 450 Mg Tab 450 Mg PO TUTHSA@0900 90 Days Dapsone 25 Mg Tab 50 Mg PO DAILY 90 Days [Nystatin Liq] 5 ML Susp 5 Ml SWISH-SWAL QID 90 Days Reported Mag-Oxide (Magnesium Oxide) 200 Mg Magnesium Tablet 2 Sydnee-Michelle Rx (B-Complex W/ C & Folic Acid) 1 Tab 1 Tab PO DAILY Protonix (Pantoprazole Sodium) 40 Mg Tab 40 Mg PO DAILY Sensipar (Cinacalcet) 60 Mg Tab 60 Mg PO DAILY Active Ordered Medications Current Medications Medications (Trade) Dose Ordered Sig/Alisha Route Start Time Stop Time Status Last Admin (NS Flush) 2 ml UNSCH PRN IV FLUSH 12/21/17 21:45 (NS Flush) 2 ml BID IV FLUSH 12/22/17 09:00 12/22/17 08:51 (Narcan Inj) 0.4 mg UNSCH PRN IV PUSH 12/21/17 21:45 Ceftriaxone Sodium 1000 mg/ Sodium Chloride 100 ml @ 200 mls/hr Q24H IV 12/21/17 22:00 12/21/17 23:17 (Nephrocaps) 1 cap DAILY PO 12/22/17 09:00 12/22/17 08:48 (Colace) 100 mg BID PO 12/22/17 09:00 (Percocet 5-325 Mg) 1 tab Q6H PRN PO 12/21/17 21:45 (Valcyte) 450 mg TuThSa@0900 PO 12/23/17 09:00 (Prograf) 5 mg DAILY@06 PO 12/22/17 06:00 12/22/17 06:00 (Prograf) 4 mg DAILY@1800 PO 12/22/17 18:00 (Deltasone) 5 mg DAILY PO 12/22/17 09:00 12/22/17 08:48 (Protonix) 40 mg DAILY PO 12/22/17 09:00 12/22/17 08:48 (Zyloprim) 100 mg DAILY PO 12/22/17 09:00 12/22/17 08:48 (Theragran) 1 tab DAILY PO 12/22/17 09:00 12/22/17 08:48 (K-Phos) 500 mg DAILY PO 12/22/17 09:00 12/22/17 08:47 (Mag-Ox) 400 mg DAILY PO 12/22/17 09:00 12/22/17 08:48 (Tums Chew) 500 mg Q12HR CHEW 12/22/17 09:00 12/22/17 08:47 (Sensipar) 60 mg DAILY PO 12/22/17 09:00 12/22/17 08:47 (Metamucil Fiber Sf Pkt) 1 pkt DAILY PO 12/22/17 09:00 12/22/17 08:46 (Tylenol) 650 mg Q6HR PRN PO 12/21/17 21:45 12/22/17 13:30 Family History Noncontributory Social History Denies smoking or alcohol use Physical Exam Vital Signs Vital Signs Date Time Temp Pulse Resp B/P (MAP) Pulse Ox O2 Delivery O2 Flow Rate FiO2 12/22/17 16:00 75 12/22/17 15:00 80 12/22/17 15:00 100.0 65 17 129/76 (93) 100 12/22/17 14:00 72 12/22/17 13:15 102.2 12/22/17 13:00 87 12/22/17 12:00 79 12/22/17 11:00 98.7 78 17 147/79 (101) 100 12/22/17 11:00 75 12/22/17 10:00 74 12/22/17 09:00 75 12/22/17 08:00 81 12/22/17 07:15 99.1 79 16 124/72 (89) 97 12/22/17 07:15 73 12/22/17 06:13 100.5 86 12/22/17 06:00 82 12/22/17 05:30 102.0 87 16 126/79 (95) 97 12/22/17 05:00 81 12/22/17 04:00 78 12/22/17 03:00 76 12/22/17 02:00 78 12/22/17 01:00 72 12/22/17 00:00 70 12/21/17 23:00 71 16 127/62 (83) 96 12/21/17 23:00 64 12/21/17 22:00 82 12/21/17 20:30 100.2 12/21/17 20:15 101.8 86 16 136/75 (95) 95 Physical Exam GENERAL: Well-nourished, well-developed patient. SKIN: Warm and dry. HEAD: Normocephalic. EYES: No scleral icterus. No injection or drainage. NECK: Supple, trachea midline. No JVD or lymphadenopathy. CARDIOVASCULAR: Regular rate and rhythm without murmurs, gallops, or rubs. RESPIRATORY: Breath sounds equal bilaterally. No accessory muscle use. GASTROINTESTINAL: Abdomen soft, non-tender, nondistended. Right lower abdominal incision nontender. EXTREMITIES: No cyanosis, or edema. NEUROLOGICAL: Awake, alert, and oriented x 3. Non-focal. Laboratory Laboratory Tests Test 12/22/17 03:52 12/22/17 13:30 12/22/17 13:57 White Blood Count 9.5 Red Blood Count 4.36 Hemoglobin 13.1 Hematocrit 39.4 Mean Corpuscular Volume 90.5 Mean Corpuscular Hemoglobin 30.0 Mean Corpuscular Hemoglobin Concent 33.2 Red Cell Distribution Width 14.6 Platelet Count 162 Mean Platelet Volume 8.5 Neutrophils (%) (Auto) 82.3 Lymphocytes (%) (Auto) 4.3 Monocytes (%) (Auto) 13.0 Eosinophils (%) (Auto) 0.0 Basophils (%) (Auto) 0.4 Neutrophils # (Auto) 7.9 Lymphocytes # (Auto) 0.4 Monocytes # (Auto) 1.2 Eosinophils # (Auto) 0.0 Basophils # (Auto) 0.0 CBC Comment AUTO DIFF Differential Total Cells Counted 100 Neutrophils % (Manual) 69 Band Neutrophils % 17 Lymphocytes % 5 Monocytes % 8 Neutrophils # (Manual) 8.3 Metamyelocytes 1 Differential Comment FINAL DIFF MANUAL Platelet Estimate NORMAL Platelet Morphology Comment NORMAL Red Cell Morphology Comment NORMAL Blood Urea Nitrogen 22 Creatinine 2.17 Random Glucose 94 Calcium Level 8.6 Phosphorus Level 1.5 Magnesium Level 1.4 Sodium Level 132 Potassium Level 4.4 Chloride Level 99 Carbon Dioxide Level 21.6 Anion Gap 11 Estimat Glomerular Filtration Rate 40 Tacrolimus (Prograf) Level 7.6 Urine Color DARK-YELLOW Urine Turbidity HAZY Urine pH 5.5 Urine Specific [place] 1.014 Urine Protein 100 Urine Glucose (UA) NEG Urine Ketones NEG Urine Occult Blood LARGE Urine Nitrite NEG Urine Bilirubin NEG Urine Urobilinogen LESS THAN 2.0 Urine Leukocyte Esterase MOD Urine RBC Urine WBC 29 Urine WBC Clumps RARE Urine Bacteria FEW Microscopic Urinalysis Comment CULTURE INDICATED Date/Time Source Procedure Growth Status 12/22/17 13:57 Blood Peripheral Aerobic Blood Culture Pending Received 12/22/17 13:57 Blood Peripheral Anaerobic Blood Culture Pending Received 12/22/17 13:30 Urine Clean Catch Urine Culture Pending Received Result Diagram: 12/22/17 0352 12/22/17 0352 Imaging Last Impressions Renal Ultrasound 12/22/17 0000 Signed Impressions: CONCLUSION: 1. The resistive indices are approximately 0.6-0.7. This is within normal limi ts and unchanged from previous examination. 2. There is no hydronephrosis. No perinephric fluid collections are identified . 3. Appearance is stable compared to the previous study dated 09/25/2017. Assessment and Plan Problem List: (1) ESRD (end stage renal disease) on dialysis ICD Codes: N18.6 - End stage renal disease; Z99.2 - Dependence on renal dialysis Status: Acute Plan: Patient is on immunosuppressive medication and has gram-negative septicemia Likely source bladder infection with possible pyelonephritis Cultures from other hospitals are growing gram-negative bacteria He is still febrile and I will expand his coverage at Levaquin 250 mg IV continue with ceftriaxone Follow blood cultures which were drawn earlier Discontinue dapsone hold CellCept Tacrolimus is 5 mg in the morning and 4 mg in the evening (2) Hypertension ICD Codes: I10 - Essential (primary) hypertension Status: Acute Plan: Continue to monitor (3) Sepsis ICD Codes: A41.9 - Sepsis, unspecified organism Plan: And ceftriaxone Levaquin added as he has gram-negative sepsis (4) UTI (lower urinary tract infection) ICD Codes: N39.0 - Urinary tract infection, site not specified Plan: Treated Problem Qualifiers (1) Hypertension: Qualified Codes: I10 - Essential (primary) hypertension John Colmenares MD Dec 22, 2017 16:56
[2017-12-22] MEDS ORDERED: LEVOFLOXACIN 250 MG PREMIX INJ 50 ML IV SCH (17:00)
[2017-12-22] MEDS: SODIUM CHLOR 0.9% 1000 ML INJ 1,000 ML IV SCH (17:22)
[2017-12-22] MEDS: TACROLIMUS 1 MG CAP PO SCH (17:58)
[2017-12-22] MEDS ORDERED: POTASSIUM PHOSPHATE MONOBASIC 500 MG TAB PO SCH (21:00)
[2017-12-22] MEDS: cefTRIAXone INJ 1,000 MG in SODIUM CHLORIDE 0.9% INJ 100 ML IV SCH (21:23)
[2017-12-23] VITALS (12 sets, daily range): BP systolic 112–132; BP diastolic 58–77; PULSE 69–81; RESP 18; TEMP 98.2–100.4; O2SAT 95–100
[2017-12-23] MEDS: SODIUM CHLOR 0.9% 1000 ML INJ 1,000 ML IV SCH ×3 (05:46→22:45)
[2017-12-23 05:57] LABS: BICARBONATE 22.9 MEQ/L (21.0-32.0); CALCIUM 8.2 MG/DL (8.5-10.1); CREATININE 2.01 MG/DL (0.60-1.30); MAGNESIUM 1.6 MG/DL (1.5-2.5); PHOSPHORUS 1.8 MG/DL (2.5-4.9)
[2017-12-23 06:04] LABS: HEMATOCRIT 37.8 % (39.0-51.0); HEMOGLOBIN 12.4 GM/DL (13.0-17.0); MEAN CELL VOLUME 89.7 FL (80.0-100.0); MEAN CORPUSCULAR HEMOGLOBIN 29.4 PG (27.0-34.0); MEAN CORPUSCULAR HGB CONC 32.7 % (32.0-36.0); MEAN PLATELET VOLUME 8.3 FL (7.0-11.0); PLATELET COUNT 143 TH/MM3 (150-450); RED BLOOD COUNT 4.21 MIL/MM3 (4.50-5.90); RED CELL DISTRIBUTION WIDTH 14.4 % (11.6-17.2); WHITE BLOOD COUNT 6.6 TH/MM3 (4.0-11.0)
[2017-12-23] MEDS: TACROLIMUS 5 MG CAP PO SCH (06:28)
[2017-12-23 08:38] LABS: BANDS 19 % (0-6); LYMPHOCYTES 3 % (9-44); MONOCYTES 11 % (0-8); NEUTROPHIL # MANUAL DIFF 5.7 TH/MM3 (1.8-7.7); POLYS (SEG NEUTROPHILS) 67 % (16-70)
[2017-12-23] MEDS: CINACALCET HYDROCHLORIDE 30 MG TAB PO SCH (08:39)
[2017-12-23] MEDS: POTASSIUM PHOSPHATE MONOBASIC 500 MG TAB PO SCH (08:40)
[2017-12-23] MEDS: PSYLLIUM HUSK SF 3.4 GM in 5.8 GM PKT PO SCH (08:40)
[2017-12-23] MEDS: MULTIVITAMIN TAB PO SCH (08:40)
[2017-12-23] MEDS: SODIUM CHLORIDE 0.9% FLUSH 10 ML FLUSH IV FLUSH SCH ×2 (08:40→21:00)
[2017-12-23] MEDS: ALLOPURINOL 100 MG TAB PO SCH (08:40)
[2017-12-23] MEDS: CALCIUM CARBONATE 500 MG CHEWABLE TAB CHEW SCH ×2 (08:40→21:06)
[2017-12-23] MEDS: PANTOPRAZOLE SOD 40 MG DELAYED RELEASE TAB PO SCH (08:40)
[2017-12-23] MEDS: predniSONE 5 MG TAB PO SCH (08:40)
[2017-12-23] MEDS: VITAMIN B CMPLX/VITC/FOLIC AC CAP PO SCH (08:41)
[2017-12-23] MEDS: DOCUSATE SODIUM 100 MG CAP PO SCH ×2 (08:44→21:00)
[2017-12-23] MEDS: MAGNESIUM OXIDE 400 MG TAB PO SCH (08:44)
--- NOTE | 2017-12-23 09:41 | HHI.PR ---
Subjective Remarks Feels better Urine is clear No fever or chills. No pain or burning with urination Decreased appetite. Objective Vitals Vital Signs Date Time Temp Pulse Resp B/P (MAP) Pulse Ox O2 Delivery O2 Flow Rate FiO2 12/23/17 06:00 77 12/23/17 05:00 76 12/23/17 04:00 100.1 72 18 112/58 (76) 98 12/23/17 04:00 75 12/23/17 03:00 71 12/23/17 02:00 72 12/23/17 01:00 71 12/23/17 00:00 100.4 81 18 119/58 (78) 98 12/22/17 21:27 99.8 66 18 119/58 (78) 98 12/22/17 19:00 62 12/22/17 18:00 62 12/22/17 17:57 98.9 12/22/17 17:00 67 12/22/17 16:00 75 12/22/17 15:00 80 12/22/17 15:00 100.0 65 17 129/76 (93) 100 12/22/17 14:00 72 12/22/17 13:15 102.2 12/22/17 13:00 87 12/22/17 12:00 79 12/22/17 11:00 98.7 78 17 147/79 (101) 100 12/22/17 11:00 75 12/22/17 10:00 74 I/O 12/22/17 12/22/17 12/22/17 12/23/17 12/23/17 12/23/17 07:00 15:00 23:00 07:00 15:00 23:00 Intake Total 480 ml 1540 ml 1200 ml Output Total 1070 ml 960 ml Balance -590 ml 580 ml 1200 ml Intake Oral 480 ml 1440 ml IV Total 100 ml 1200 ml Output Urine Total 1070 ml 960 ml # Bowel Movements 0 1 Result Diagram: 12/23/17 0516 12/23/17 0516 Imaging Last Impressions Renal Ultrasound 12/22/17 0000 Signed Impressions: CONCLUSION: 1. The resistive indices are approximately 0.6-0.7. This is within normal limi ts and unchanged from previous examination. 2. There is no hydronephrosis. No perinephric fluid collections are identified . 3. Appearance is stable compared to the previous study dated 09/25/2017. Objective Remarks GENERAL: This is a well-nourished, well-developed patient, in no apparent distress. CARDIOVASCULAR: Regular rate and rhythm without murmurs, gallops, or rubs. RESPIRATORY: Clear to auscultation. Breath sounds equal bilaterally. No wheezes , rales, or rhonchi. GASTROINTESTINAL: Abdomen soft, non-tender, nondistended. MUSCULOSKELETAL: Extremities without clubbing, cyanosis, or edema. NEUROLOGICAL: Awake and alert. Normal speech. A/P Assessment and Plan 47 y/o male with a history of HTN, HLD, Gout and a kidney transplant, in Aug 2017 was sent to [facility] with complaints of blood in his urine. Pyelonephritis s/p renal transplant UTI Hematuria Bacteremia ( per Dr Caba patient with GN) IVF for hydration IV antibiotics: Rocephin. Monitor urine cultures ( will have report from other hospital also). DC Levaquin 250 mg IV QD. Consult transplant surgeon Dr. Caba Cont home medications, hold cell Cept per Dr. Caba Consult nephrology Dr Colmenares appreciate recs. CBC in AM Pain management with PO [place] Repeat blood cultures 12/21/17 NTD. Repeat blood cultures 12/23. ID consulted as patient with bacteremia, immunocompromised DVT prophylaxis: SCDs Discussed Condition With Patient, nurse Discussed with Dr Durbin surgeon Discussed with Dr Morton ID specialist Isabella Teague MD Dec 23, 2017 09:41
--- NOTE | 2017-12-23 10:42 | HHI.PR ---
Subjective Remarks Feels some continued fatigue, but feels bit better now than at admit. appetite still not great. Objective Vital Signs Date Time Temp Pulse Resp B/P (MAP) Pulse Ox O2 Delivery O2 Flow Rate FiO2 12/23/17 08:30 99.6 79 18 119/73 (88) 95 12/23/17 08:30 79 12/23/17 06:00 77 12/23/17 05:00 76 12/23/17 04:00 100.1 72 18 112/58 (76) 98 12/23/17 04:00 75 12/23/17 03:00 71 12/23/17 02:00 72 12/23/17 01:00 71 12/23/17 00:00 100.4 81 18 119/58 (78) 98 12/22/17 21:27 99.8 66 18 119/58 (78) 98 12/22/17 19:00 62 12/22/17 18:00 62 12/22/17 17:57 98.9 12/22/17 17:00 67 12/22/17 16:00 75 12/22/17 15:00 80 12/22/17 15:00 100.0 65 17 129/76 (93) 100 12/22/17 14:00 72 12/22/17 13:15 102.2 12/22/17 13:00 87 12/22/17 12:00 79 12/22/17 11:00 98.7 78 17 147/79 (101) 100 12/22/17 11:00 75 I/O 12/22/17 12/22/17 12/22/17 12/23/17 12/23/17 12/23/17 07:00 15:00 23:00 07:00 15:00 23:00 Intake Total 480 ml 1540 ml 1200 ml Output Total 1070 ml 960 ml Balance -590 ml 580 ml 1200 ml Intake Oral 480 ml 1440 ml IV Total 100 ml 1200 ml Output Urine Total 1070 ml 960 ml # Bowel Movements 0 1 0 Result Diagram: 12/23/1716 12/23/17 05 Objective Remarks Resp: CTAB CV: s1s2 Abd: BS, soft NT/ND Ext: Calves soft NT B Assessment and Plan Problem List: (1) ESRD (end stage renal disease) on dialysis ICD Codes: N18.6 - End stage renal disease; Z99.2 - Dependence on renal dialysis Status: Acute (2) Hyperlipidemia ICD Codes: E78.5 - Hyperlipidemia, unspecified Status: Chronic (3) Hypertension ICD Codes: I10 - Essential (primary) hypertension Status: Acute (4) Kidney transplant status, cadaveric ICD Codes: Z94.0 - Kidney transplant status Assessment and Plan 47 yom s/p recent cadaveric renal transplant. (09/08/17). transferred from [place] with probable pyelonephritis. Reportedly had a CT scan this AM and the report suggested pyelo, but the images were not sent. Will see if we can get them to send the discs. Patient has been started on antibiotics. Denies abd pain. . Has the anorexia and hematuria, but denies any other symptoms. Will continue the antibiotics. Will hold his cellcept for now. Continue his other immunosuppressants. Continue po diet Fever curve improved. Feels a bit better. We do have sensitivities from the urine cultures done on 12/20/17 at [facility]. ID will evaluate. Await their recommendations for antibiosis. Other culture results pending. transplant renal US yesterday with no acute pathology identified. Continue current therapy. Problem Qualifiers (1) Hypertension: Qualified Codes: I10 - Essential (primary) hypertension Von Caba Jr., MD Dec 23, 2017 10:42
--- NOTE | 2017-12-23 11:20 | PD.ID.CON ---
History of Present Illness Service ID Consult Requested By Dr. Caba and Reason for Consult Evaluation and management of sepsis in a patient post transplant immunocompromise. Primary Care Physician No Primary Care Physician Diagnoses: History of Present Illness is a 47 y/o AAM with PMHx of ESRD on HD using AV fistula LUE, FSGS as cause for ESRD, patient underwent an elective donor transplant on 2017. Preoperatively patient denies any infections or exposure to people with infections. Patient was seen in August 2017 by me for postoperative balanitis and treated with daptomycin IV and this resolved. Thereafter patient has never had a Platt catheter in place. Patient reports approximately 3 days prior to admission he developed fevers with chills, bilateral flank pain as well as hematuria. He contacted Dr. Caba his transplant surgeon who asked him to get some basic labs done. Patient continued to feel ill despite being treated with Keflex and therefore presented to local hospital in [place]. Patient had a sepsis workup initiated in the emergency department there and thereafter was transferred to [facility]. Patient had blood cultures done at the hospital which are now showing growth of gram-negative rods. Patient's urine culture was positive for E. coli and is sensitive to cephalosporins. Patient had a CT scan done at the other hospital which showed perinephric fat stranding suggestive of possible pyelonephritis. Patient was started on ceftriaxone IV as well as Levaquin IV at the other hospital and this was continued at [facility]. At the time of my evaluation patient is on a regular floor sitting in his chair appears comfortable denies any chest pain shortness of breath or any other systemic symptoms. Infectious diseases consulted for evaluation and management of sepsis in the patient's post transplant and immunocompromised. Review of Systems Constitutional: COMPLAINS OF: Fever, Chills, DENIES: Diaphoretic episodes, Fatigue, Weight gain, Weight loss, Dizziness, Change in appetite, Night Sweats Endocrine: DENIES: Heat/cold intolerance, Polydipsia, Polyuria, Polyphagia Eyes: DENIES: Blurred vision, Diplopia, Eye inflammation, Eye pain, Vision loss , Photosensitivity, Double Vision Ears, nose, mouth, throat: DENIES: Tinnitus, Hearing loss, Vertigo, Nasal discharge, Oral lesions, Throat pain, Hoarseness, Ear Pain, Running Nose, Epistaxis, Sinus Pain, Toothache, Odynophagia Respiratory: DENIES: Apneas, Cough, Snoring, Wheezing, Hemoptysis, Sputum production, Shortness of breath Cardiovascular: DENIES: Chest pain, Palpitations, Syncope, Dyspnea on Exertion , PND, Lower Extremity Edema, Orthopnea, Claudication Gastrointestinal: DENIES: Abdominal pain, Black stools, Bloody stools, Constipation, Diarrhea, Nausea, Vomiting, Difficulty Swallowing, Anorexia Genitourinary: COMPLAINS OF: Hematuria, DENIES: Sexual dysfunction, Urinary frequency, Urinary incontinence, Urgency, Dysuria, Nocturia, Penile Discharge, Testicular Pain, Testicular Swelling Musculoskeletal: DENIES: Joint pain, Muscle aches, Stiffness, Joint Swelling, Back pain, Neck pain Integumentary: DENIES: Abnormal pigmentation, Nail changes, Pruritus, Rash Hematologic/lymphatic: DENIES: Bruising, Lymphadenopathy Immunologic/allergic: DENIES: Eczema, Urticaria Neurologic: DENIES: Abnormal gait, Headache, Localized weakness, Paresthesias, Seizures, Speech Problems, Tremor, Poor Balance Psychiatric: DENIES: Anxiety, Confusion, Mood changes, Depression, Hallucinations, Agitation, Suicidal Ideation, Homicidal Ideation, Delusions Except as stated in HPI: all other systems reviewed are Neg ( ) Past Family Social History Allergies: Coded Allergies: Sulfa (Sulfonamide Antibiotics) (Unverified Allergy, Intermediate, Respiratory Failure and Swelling, 03/07/17) Uncoded Allergies: seasonal allergies (Allergy, Mild, 08/18/16) Past Medical History s/p Renal transplant HTN Gout FSGS related ESRD was on Hemodialysis using Left arm AV fistula. CAD Past Surgical History Left arm AV fistula. Right wrist surgery for torn ligament. s/p renal transplant Reported Medications Reported Meds & Active Scripts Active Zyloprim (Allopurinol) 100 Mg Tab 100 Mg PO DAILY Prograf (Tacrolimus) 5 Mg Cap 5 Mg PO DAILY@06,18 Cellcept (Mycophenolate Mofetil) 500 Mg Tab 1,000 Mg PO BID@0600,1800 Prednisone 20 Mg Tab 20 Mg PO DAILY 90 Days Dok (Docusate Sodium) 100 Mg Cap 100 Mg PO BID [Calcium Carbonate Chew] 500 MG Chew 500 Mg CHEW BID@09,16 K-Phos (Potassium Phosphate Monobasic) 500 Mg Tab 500 Mg PO Q12HR Oxycodone-Acetaminophen 5-325 (Oxycodone HCl/Acetaminophen) 5 Mg-325 Mg Tablet 1 Tab PO Q6H PRN Valcyte (Valganciclovir) 450 Mg Tab 450 Mg PO TUTHSA@0900 90 Days Dapsone 25 Mg Tab 50 Mg PO DAILY 90 Days [Nystatin Liq] 5 ML Susp 5 Ml SWISH-SWAL QID 90 Days Reported Mag-Oxide (Magnesium Oxide) 200 Mg Magnesium Tablet 2 Sydnee-Michelle Rx (B-Complex W/ C & Folic Acid) 1 Tab 1 Tab PO DAILY Protonix (Pantoprazole Sodium) 40 Mg Tab 40 Mg PO DAILY Sensipar (Cinacalcet) 60 Mg Tab 60 Mg PO DAILY Active Ordered Medications Current Medications Medications (Trade) Dose Ordered Sig/Alisha Route Start Time Stop Time Status Last Admin (NS Flush) 2 ml UNSCH PRN IV FLUSH 12/21/17 21:45 (NS Flush) 2 ml BID IV FLUSH 12/22/17 09:00 12/23/17 08:40 (Narcan Inj) 0.4 mg UNSCH PRN IV PUSH 12/21/17 21:45 (Nephrocaps) 1 cap DAILY PO 12/22/17 09:00 12/23/17 08:41 (Colace) 100 mg BID PO 12/22/17 09:00 (Percocet 5-325 Mg) 1 tab Q6H PRN PO 12/21/17 21:45 (Valcyte) 450 mg TuThSa@0900 PO 12/23/17 09:00 (Prograf) 5 mg DAILY@06 PO 12/22/17 06:00 12/23/17 06:28 (Prograf) 4 mg DAILY@1800 PO 12/22/17 18:00 12/22/17 17:58 (Deltasone) 5 mg DAILY PO 12/22/17 09:00 12/23/17 08:40 (Protonix) 40 mg DAILY PO 12/22/17 09:00 12/23/17 08:40 (Zyloprim) 100 mg DAILY PO 12/22/17 09:00 12/23/17 08:40 (Theragran) 1 tab DAILY PO 12/22/17 09:00 12/23/17 08:40 (K-Phos) 500 mg DAILY PO 12/22/17 09:00 12/23/17 08:40 (Mag-Ox) 400 mg DAILY PO 12/22/17 09:00 12/23/17 08:44 (Tums Chew) 500 mg Q12HR CHEW 12/22/17 09:00 12/23/17 08:40 (Sensipar) 60 mg DAILY PO 12/22/17 09:00 12/23/17 08:39 (Metamucil Fiber Sf Pkt) 1 pkt DAILY PO 12/22/17 09:00 12/23/17 08:40 (Tylenol) 650 mg Q6HR PRN PO 12/21/17 21:45 12/22/17 13:30 Sodium Chloride 1,000 ml @ 100 mls/hr Q10H IV 12/22/17 16:45 12/23/17 05:46 Ceftriaxone Sodium 2000 mg/ Sodium Chloride 100 ml @ 200 mls/hr Q24H IV 12/23/17 22:00 Family History Several relatives with HTN, DM, and CAD, Obesity. Maternal grandmother- had a KS. Social History Denies tob/etoh/ illicit drug use. 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 Physical Exam Vital Signs Vital Signs Date Time Temp Pulse Resp B/P (MAP) Pulse Ox O2 Delivery O2 Flow Rate FiO2 12/23/17 08:30 99.6 79 18 119/73 (88) 95 12/23/17 08:30 79 12/23/17 06:00 77 12/23/17 05:00 76 12/23/17 04:00 100.1 72 18 112/58 (76) 98 12/23/17 04:00 75 12/23/17 03:00 71 12/23/17 02:00 72 12/23/17 01:00 71 12/23/17 00:00 100.4 81 18 119/58 (78) 98 12/22/17 21:27 99.8 66 18 119/58 (78) 98 12/22/17 19:00 62 12/22/17 18:00 62 12/22/17 17:57 98.9 12/22/17 17:00 67 12/22/17 16:00 75 12/22/17 15:00 80 12/22/17 15:00 100.0 65 17 129/76 (93) 100 12/22/17 14:00 72 12/22/17 13:15 102.2 12/22/17 13:00 87 12/22/17 12:00 79 Physical Exam GENERAL: This is a well-nourished, well-developed patient, in no apparent distress. SKIN: No rashes, ecchymoses or lesions. Cool and dry. HEAD: Atraumatic. Normocephalic. No temporal or scalp tenderness. EYES: Pupils equal round and reactive. Extraocular motions intact. No scleral icterus. No injection or drainage. ENT: Nose without bleeding, purulent drainage or septal hematoma. Throat without erythema, tonsillar hypertrophy or exudate. Uvula midline. Airway patent. NECK: Trachea midline. Supple, nontender, no meningeal signs. CARDIOVASCULAR: Heart sounds audible. RESPIRATORY: Clear to auscultation. Breath sounds equal bilaterally. No wheezes , rales, or rhonchi. GASTROINTESTINAL: Abdomen soft, non-tender, nondistended. Surgical scar in the right lower quadrant intact with no tenderness. No flank tenderness. MUSCULOSKELETAL: Extremities without clubbing, cyanosis, or edema. No joint tenderness, effusion, or edema noted. No calf tenderness. Negative Homans sign bilaterally. NEUROLOGICAL: Awake and alert. Nonfocal exam Psych cooperative IV line sites with no evidence of infection. Laboratory Laboratory Tests Test 12/22/17 13:30 12/22/17 13:57 12/23/17 05:16 Urine Color DARK-YELLOW Urine Turbidity HAZY Urine pH 5.5 Urine Specific [place] 1.014 Urine Protein 100 Urine Glucose (UA) NEG Urine Ketones NEG Urine Occult Blood LARGE Urine Nitrite NEG Urine Bilirubin NEG Urine Urobilinogen LESS THAN 2.0 Urine Leukocyte Esterase MOD Urine RBC Urine WBC 29 Urine WBC Clumps RARE Urine Bacteria FEW Microscopic Urinalysis Comment CULTURE INDICATED White Blood Count 6.6 Red Blood Count 4.21 Hemoglobin 12.4 Hematocrit 37.8 Mean Corpuscular Volume 89.7 Mean Corpuscular Hemoglobin 29.4 Mean Corpuscular Hemoglobin Concent 32.7 Red Cell Distribution Width 14.4 Platelet Count 143 Mean Platelet Volume 8.3 CBC Comment AUTO DIFF Differential Total Cells Counted 100 Neutrophils % (Manual) 67 Band Neutrophils % 19 Lymphocytes % 3 Monocytes % 11 Neutrophils # (Manual) 5.7 Differential Comment FINAL DIFF MANUAL Platelet Estimate LOW Platelet Morphology Comment NORMAL Red Cell Morphology Comment NORMAL Blood Urea Nitrogen 24 Creatinine 2.01 Random Glucose 92 Calcium Level 8.2 Phosphorus Level 1.8 Magnesium Level 1.6 Sodium Level 133 Potassium Level 4.3 Chloride Level 99 Carbon Dioxide Level 22.9 Anion Gap 11 Estimat Glomerular Filtration Rate 43 Tacrolimus (Prograf) Level 8.8 Date/Time Source Procedure Growth Status 12/23/17 10:28 Blood Peripheral Aerobic Blood Culture Pending Received 12/23/17 10:28 Blood Peripheral Anaerobic Blood Culture Pending Received 12/22/17 13:30 Urine Clean Catch Urine Culture Pending Received Result Diagram: 12/23/17 0516 12/23/17 0516 Imaging Last Impressions Renal Ultrasound 12/22/17 0000 Signed Impressions: CONCLUSION: 1. The resistive indices are approximately 0.6-0.7. This is within normal limi ts and unchanged from previous examination. 2. There is no hydronephrosis. No perinephric fluid collections are identified . 3. Appearance is stable compared to the previous study dated 09/25/2017. Assessment and Plan Assessment and Plan Sepsis present on admission Gram-negative bacteremia E. coli UTI with pyelonephritis of the transplanted kidney Status post renal transplant Immune compromised Recommendations Continue ceftriaxone IV dose increased to 2 gm for bacteremia. Discontinue Levaquin due to drug interactions with transplant medications. Follow blood cultures at [place] Follow blood cultures at [facility]. Follow clinically. brenda Garcia and Dr.Cosma Taveras RN Dw patient Called micro at [facility] and discussed cultures. Will need further follow up calls. Medications reviewed. Continue Dapsone and Valcyte per transplant protocol. Will follow along. Odalis Morton MD Dec 23, 2017 11:20
[2017-12-23 12:35] LABS: ALBUMIN 2.9 GM/DL (3.4-5.0); DIRECT BILIRUBIN ADULT 0.2 MG/DL (0.0-0.2)
[2017-12-23 12:36] LABS: INDIRECT BILIRUBIN 0.1 MG/DL (0.0-0.8); TOTAL BILIRUBIN ADULT 0.3 MG/DL (0.2-1.0); TOTAL PROTEIN 7.1 GM/DL (6.4-8.2)
[2017-12-23] MEDS: TACROLIMUS 1 MG CAP PO SCH (17:19)
[2017-12-23] MEDS: cefTRIAXone INJ 2,000 MG in SODIUM CHLORIDE 0.9% INJ 100 ML IV SCH (21:31)
[2017-12-23] MEDS ORDERED: cefTRIAXone INJ 2,000 MG in SODIUM CHLORIDE 0.9% INJ 100 ML IV SCH (22:00)
[2017-12-24] MEDS: SODIUM CHLOR 0.9% 1000 ML INJ 1,000 ML IV SCH (01:51)
[2017-12-24 05:27] VITALS: BP 142/73; PULSE 77; TEMP 99.8; O2SAT 98
[2017-12-24] MEDS: TACROLIMUS 5 MG CAP PO SCH (05:31)
[2017-12-24 06:01] LABS: HEMATOCRIT 36.2 % (39.0-51.0); HEMOGLOBIN 11.9 GM/DL (13.0-17.0); MEAN CELL VOLUME 89.4 FL (80.0-100.0); MEAN CORPUSCULAR HEMOGLOBIN 29.4 PG (27.0-34.0); MEAN CORPUSCULAR HGB CONC 32.8 % (32.0-36.0); MEAN PLATELET VOLUME 8.6 FL (7.0-11.0); PLATELET COUNT 149 TH/MM3 (150-450); RED BLOOD COUNT 4.05 MIL/MM3 (4.50-5.90); RED CELL DISTRIBUTION WIDTH 14.6 % (11.6-17.2); WHITE BLOOD COUNT 4.3 TH/MM3 (4.0-11.0)
[2017-12-24 06:15] LABS: BICARBONATE 21.1 MEQ/L (21.0-32.0); CALCIUM 8.2 MG/DL (8.5-10.1); CREATININE 1.77 MG/DL (0.60-1.30); MAGNESIUM 1.7 MG/DL (1.5-2.5); PHOSPHORUS 2.1 MG/DL (2.5-4.9)
[2017-12-24 07:42] LABS: BANDS 8 % (0-6); LYMPHOCYTES 5 % (9-44); MONOCYTES 15 % (0-8); NEUTROPHIL # MANUAL DIFF 3.4 TH/MM3 (1.8-7.7); POLYS (SEG NEUTROPHILS) 72 % (16-70)
[2017-12-24 08:30] VITALS: BP 127/70; PULSE 70; RESP 18; TEMP 98.8; O2SAT 98
--- NOTE | 2017-12-24 08:33 | HHI.NPPN ---
Subjective Interval History Late entry: patient was seen on 12/23. He was doing well. Renal function improved. CellCept held. Denied pain, or dysuria. Patient with pyelonephritis, Sepsis. On Ceftriaxone, seen by ID. CellCuco on hold. O/E Comfortable, alert, oriented. Heart: RRR Abdomen: soft, non tender No edema. Notes were reviewed. Objective Data Data Vital Signs Date Time Temp Pulse Resp B/P (MAP) Pulse Ox O2 Delivery O2 Flow Rate FiO2 12/24/17 05:27 99.8 77 142/73 (96) 98 12/23/17 23:22 98.7 70 132/70 (90) 100 12/23/17 19:00 98.5 69 132/74 (93) 100 12/23/17 15:06 98.2 69 18 122/77 (92) 99 12/23/17 12:10 18 12/23/17 11:35 98.8 73 18 123/69 (87) 100 -: 12/24/17 0531 12/24/17 0531 Microbiology 12/23/17 Aerobic Blood Culture, Received Pending 12/23/17 Anaerobic Blood Culture, Received Pending 12/23/17 Aerobic Blood Culture, Received Pending 12/23/17 Anaerobic Blood Culture, Received Pending Miky Hyatt MD Dec 24, 2017 08:33
--- NOTE | 2017-12-24 08:49 | HHI.PR ---
Subjective Remarks The patient is seen in the chair he appears to not acute distress at this time. No events overnight. Afebrile. Urine is clear. No pain with urination. Improving. Objective Vitals Vital Signs Date Time Temp Pulse Resp B/P (MAP) Pulse Ox O2 Delivery O2 Flow Rate FiO2 12/24/17 05:27 99.8 77 142/73 (96) 98 12/23/17 23:22 98.7 70 132/70 (90) 100 12/23/17 19:00 98.5 69 132/74 (93) 100 12/23/17 15:06 98.2 69 18 122/77 (92) 99 12/23/17 12:10 18 12/23/17 11:35 98.8 73 18 123/69 (87) 100 I/O 12/23/17 12/23/17 12/23/17 12/24/17 12/24/17 12/24/17 07:00 15:00 23:00 07:00 15:00 23:00 Intake Total 1200 ml 1780 ml 2195 ml Output Total 1450 ml 2225 ml Balance 1200 ml 330 ml -30 ml Intake Oral 980 ml 720 ml IV Total 1200 ml 800 ml 1475 ml Output Urine Total 1450 ml 2225 ml # Bowel Movements 0 2 Result Diagram: 12/24/17 0531 12/24/17 0531 Imaging Last Impressions Renal Ultrasound 12/22/17 0000 Signed Impressions: CONCLUSION: 1. The resistive indices are approximately 0.6-0.7. This is within normal limi ts and unchanged from previous examination. 2. There is no hydronephrosis. No perinephric fluid collections are identified . 3. Appearance is stable compared to the previous study dated 09/25/2017. Objective Remarks GENERAL: This is a well-nourished, well-developed patient, in no apparent distress. CARDIOVASCULAR: Regular rate and rhythm without murmurs, gallops, or rubs. RESPIRATORY: Clear to auscultation. Breath sounds equal bilaterally. No wheezes , rales, or rhonchi. GASTROINTESTINAL: Abdomen soft, non-tender, nondistended. MUSCULOSKELETAL: Extremities without clubbing, cyanosis, or edema. NEUROLOGICAL: Awake and alert. Normal speech. A/P Assessment and Plan 47 y/o male with a history of HTN, HLD, Gout and a kidney transplant, in Aug 2017 was sent to [facility] with complaints of blood in his urine. Pyelonephritis s/p renal transplant UTI Hematuria Bacteremia ( per Dr Caba patient with GN) IVF for hydration IV antibiotics: Rocephin. Monitor urine cultures ( will have report from other hospital also). DC Levaquin 250 mg IV QD. Transplant surgeon Dr. Caba consulted and is following Cont home medications, hold cell Cept per Dr. Caba Consult nephrology Dr Colmenares appreciate recs. Monitor labs. CBC in AM Pain management with PO [place] Repeat blood cultures 12/21/17 NTD. Repeat blood cultures 12/23. ID consulted as patient with bacteremia, immunocompromised DVT prophylaxis: SCDs Discussed Condition With Patient, nurse Discussed with Dr Durbin surgeon Isabella Teague MD Dec 24, 2017 08:49
[2017-12-24] MEDS: SODIUM CHLORIDE 0.9% FLUSH 10 ML FLUSH IV FLUSH SCH ×2 (09:00→21:20)
[2017-12-24] MEDS: PSYLLIUM HUSK SF 3.4 GM in 5.8 GM PKT PO SCH (09:00)
[2017-12-24] MEDS: DOCUSATE SODIUM 100 MG CAP PO SCH ×2 (09:00→21:00)
[2017-12-24] MEDS: VITAMIN B CMPLX/VITC/FOLIC AC CAP PO SCH (09:00)
[2017-12-24] MEDS: POTASSIUM PHOSPHATE MONOBASIC 500 MG TAB PO SCH (09:00)
[2017-12-24] MEDS: CALCIUM CARBONATE 500 MG CHEWABLE TAB CHEW SCH ×2 (09:31→21:20)
[2017-12-24] MEDS: MAGNESIUM OXIDE 400 MG TAB PO SCH (09:31)
[2017-12-24] MEDS: PANTOPRAZOLE SOD 40 MG DELAYED RELEASE TAB PO SCH (09:31)
[2017-12-24] MEDS: ALLOPURINOL 100 MG TAB PO SCH (09:32)
[2017-12-24] MEDS: predniSONE 5 MG TAB PO SCH (09:32)
[2017-12-24] MEDS: CINACALCET HYDROCHLORIDE 30 MG TAB PO SCH (09:32)
[2017-12-24] MEDS: MULTIVITAMIN TAB PO SCH (09:32)
--- NOTE | 2017-12-24 09:42 | HHI.NPPN ---
Subjective Interval History Ambulating in the room. Afebrile. Renal function has improved. Review of Systems General Constitutional: Fatigue Objective Data Data 12/24/17 12/25/17 19:00 07:00 Intake Total 150 ml Balance 150 ml IV Total 150 ml Vital Signs Date Time Temp Pulse Resp B/P (MAP) Pulse Ox O2 Delivery O2 Flow Rate FiO2 12/24/17 08:30 98.8 70 18 127/70 (89) 98 12/24/17 05:27 99.8 77 142/73 (96) 98 12/23/17 23:22 98.7 70 132/70 (90) 100 12/23/17 19:00 98.5 69 132/74 (93) 100 12/23/17 15:06 98.2 69 18 122/77 (92) 99 12/23/17 12:10 18 12/23/17 11:35 98.8 73 18 123/69 (87) 100 -: 12/24/17 0531 12/24/17 0531 Microbiology 12/23/17 Aerobic Blood Culture, Received Pending 12/23/17 Anaerobic Blood Culture, Received Pending 12/23/17 Aerobic Blood Culture, Received Pending 12/23/17 Anaerobic Blood Culture, Received Pending Physical Exam General Appearance: Well Developed, No Acute Distress Pulmonary Resp Exam: Clear Bilaterally, Breath Sounds Equal Cardiology CV Exam: Regular, Normal Sinus Rhythm Gastrointestinal/Abdomen GI Exam: Soft, Non-Tender Assessment/Plan Problem List: (1) History of kidney transplant ICD Codes: Z94.0 - Kidney transplant status Plan: On Tacrolimus, CellCept held. Also on Prednisone. Recommend to restart CellCept soon. (2) Hypertension ICD Codes: I10 - Essential (primary) hypertension Status: Acute Plan: Continue to monitor (3) Sepsis ICD Codes: A41.9 - Sepsis, unspecified organism Plan: ID has seen the patient. On Ceftriaxone. UTI with sepsis, pyelonephritis. Problem Qualifiers (1) Hypertension: Qualified Codes: I10 - Essential (primary) hypertension Miky Hyatt MD Dec 24, 2017 09:42
--- NOTE | 2017-12-24 10:53 | HHI.PR ---
Subjective Remarks Feels better. Appetite improving. Objective Vital Signs Date Time Temp Pulse Resp B/P (MAP) Pulse Ox O2 Delivery O2 Flow Rate FiO2 12/24/17 08:30 98.8 70 18 127/70 (89) 98 12/24/17 05:27 99.8 77 142/73 (96) 98 12/23/17 23:22 98.7 70 132/70 (90) 100 12/23/17 19:00 98.5 69 132/74 (93) 100 12/23/17 15:06 98.2 69 18 122/77 (92) 99 12/23/17 12:10 18 12/23/17 11:35 98.8 73 18 123/69 (87) 100 I/O 12/23/17 12/23/17 12/23/17 12/24/17 12/24/17 12/24/17 07:00 15:00 23:00 07:00 15:00 23:00 Intake Total 1200 ml 1780 ml 2195 ml 150 ml Output Total 1450 ml 2225 ml Balance 1200 ml 330 ml -30 ml 150 ml Intake Oral 980 ml 720 ml IV Total 1200 ml 800 ml 1475 ml 150 ml Output Urine Total 1450 ml 2225 ml # Bowel Movements 0 2 Result Diagram: 12/24/1731 12/24/17 0531 Objective Remarks Resp - CTAB CV - s1s2 Abd - BS, soft NT/ND Ext - Calves soft NT B Assessment and Plan Problem List: (1) ESRD (end stage renal disease) on dialysis ICD Codes: N18.6 - End stage renal disease; Z99.2 - Dependence on renal dialysis Status: Acute (2) Hyperlipidemia ICD Codes: E78.5 - Hyperlipidemia, unspecified Status: Chronic (3) Hypertension ICD Codes: I10 - Essential (primary) hypertension Status: Acute (4) Kidney transplant status, cadaveric ICD Codes: Z94.0 - Kidney transplant status Assessment and Plan 47 yom s/p recent cadaveric renal transplant. (09/08/17). transferred from [place] with probable pyelonephritis. Reportedly had a CT scan this AM and the report suggested pyelo, but the images were not sent. Will see if we can get them to send the discs. Patient has been started on antibiotics. Denies abd pain. . Has the anorexia and hematuria, but denies any other symptoms. Will continue the antibiotics. Will hold his cellcept for now. Continue his other immunosuppressants. Continue po diet Patient feels better. Fever curve improved. No acute issues overnight. Await results of additional cultures done in [place] after the initial urine culture, as well as the repeat cultures done here. Will check with ID regarding recommended antibiotic course.Continue current management. Problem Qualifiers (1) Hypertension: Qualified Codes: I10 - Essential (primary) hypertension Von Caba Jr., MD Dec 24, 2017 10:53
[2017-12-24 11:30] VITALS: BP 129/69; PULSE 62; RESP 18; TEMP 98.9; O2SAT 99
[2017-12-24 15:12] VITALS: BP 125/60; PULSE 72; RESP 18; TEMP 98.7; O2SAT 98
[2017-12-24] MEDS: TACROLIMUS 1 MG CAP PO SCH (18:04)
[2017-12-24 20:00] VITALS: BP 135/69; PULSE 63; TEMP 99.2; O2SAT 100
[2017-12-24] MEDS: cefTRIAXone INJ 2,000 MG in SODIUM CHLORIDE 0.9% INJ 100 ML IV SCH (21:20)
[2017-12-25] VITALS (7 sets, daily range): BP systolic 123–160; BP diastolic 65–94; PULSE 52–79; RESP 16; TEMP 98.3–99.3; O2SAT 95–100
[2017-12-25] MEDS: TACROLIMUS 5 MG CAP PO SCH (04:52)
[2017-12-25 06:38] LABS: AUTOMATED NEUTROPHIL # 2.3 TH/MM3 (1.8-7.7); BASOPHIL % 0.9 % (0.0-2.0); EOSINOPHIL % 0.9 % (0.0-4.0); HEMATOCRIT 34.8 % (39.0-51.0); HEMOGLOBIN 11.7 GM/DL (13.0-17.0); LYMPH % 14.3 % (9.0-44.0); LYMPHOCYTE # 0.6 TH/MM3 (1.0-4.8); MEAN CELL VOLUME 89.5 FL (80.0-100.0); MEAN CORPUSCULAR HGB CONC 33.5 % (32.0-36.0); MONO % 32.2 % (0.0-8.0); MONOCYTE # 1.4 TH/MM3 (0-0.9); NEUT % 51.7 % (16.0-70.0); PLATELET COUNT 160 TH/MM3 (150-450); RED BLOOD COUNT 3.89 MIL/MM3 (4.50-5.90); RED CELL DISTRIBUTION WIDTH 14.7 % (11.6-17.2); WHITE BLOOD COUNT 4.5 TH/MM3 (4.0-11.0)
[2017-12-25 07:02] LABS: BICARBONATE 23.5 MEQ/L (21.0-32.0); CALCIUM 8.4 MG/DL (8.5-10.1); CREATININE 1.61 MG/DL (0.60-1.30); MAGNESIUM 1.7 MG/DL (1.5-2.5); PHOSPHORUS 2.4 MG/DL (2.5-4.9)
--- NOTE | 2017-12-25 08:08 | HHI.PR ---
Subjective Remarks He is in the chair feels much better today. Says he is eating better. Appetite is coming back. No nausea or vomiting. No pain with urination. No back pain. Urine is clear no blood in it. No fever or chills. Objective Vitals Vital Signs Date Time Temp Pulse Resp B/P (MAP) Pulse Ox O2 Delivery O2 Flow Rate FiO2 12/25/17 04:56 98.6 65 126/65 (85) 95 12/25/17 00:04 99.0 52 130/70 (90) 100 12/24/17 20:00 99.2 63 135/69 (91) 100 12/24/17 15:12 98.7 72 18 125/60 (81) 98 12/24/17 11:30 98.9 62 18 129/69 (89) 99 12/24/17 08:30 98.8 70 18 127/70 (89) 98 I/O 12/24/17 12/24/17 12/24/17 12/25/17 12/25/17 12/25/17 07:00 15:00 23:00 07:00 15:00 23:00 Intake Total 2195 ml 150 ml 840 ml 1300 ml Output Total 2225 ml 2125 ml 2150 ml Balance -30 ml 150 ml -1285 ml -850 ml Intake Oral 720 ml 840 ml 1200 ml IV Total 1475 ml 150 ml 100 ml Output Urine Total 2225 ml 2125 ml 2150 ml # Bowel Movements 1 Result Diagram: 12/25/17 0444 12/25/17 0444 Imaging Last Impressions Renal Ultrasound 12/22/17 0000 Signed Impressions: CONCLUSION: 1. The resistive indices are approximately 0.6-0.7. This is within normal limi ts and unchanged from previous examination. 2. There is no hydronephrosis. No perinephric fluid collections are identified . 3. Appearance is stable compared to the previous study dated 09/25/2017. Objective Remarks GENERAL: This is a well-nourished, well-developed patient, in no apparent distress. CARDIOVASCULAR: Regular rate and rhythm without murmurs, gallops, or rubs. RESPIRATORY: Clear to auscultation. Breath sounds equal bilaterally. No wheezes , rales, or rhonchi. GASTROINTESTINAL: Abdomen soft, non-tender, nondistended. MUSCULOSKELETAL: Extremities without clubbing, cyanosis, or edema. NEUROLOGICAL: Awake and alert. Normal speech. A/P Assessment and Plan 47 y/o male with a history of HTN, HLD, Gout and a kidney transplant, in Aug 2017 was sent to [place] with complaints of blood in his urine. Pyelonephritis s/p renal transplant UTI with E. coli Hematuria Bacteremia ( per Dr Caba patient with GN) monitor reports from the hospital positive blood cultures and UTI with E. coli. IVF for hydration IV antibiotics: Rocephin. Monitor urine cultures ( will have report from other hospital also). DC Levaquin 250 mg IV QD. Transplant surgeon Dr. Caba consulted and is following Cont home medications, hold cell Cept per Dr. Caba Consult nephrology Dr Colmenares appreciate recs. Monitor labs. CBC in AM Pain management with PO [place] Repeat blood cultures 12/21/17 NTD. Repeat blood cultures 12/23 negative today ID consulted as patient with bacteremia, immunocompromised DVT prophylaxis: SCDs Discussed Condition With Patient, nurse Discussed with Dr Durbin surgeon Discharge plan: DC when improved cleared by Dr. Caba kidney transplant surgeon and infectious disease specialist. Isabella Teague MD Dec 25, 2017 08:08
[2017-12-25 08:25] LABS: BANDS 14 % (0-6); BASOPHILS 1 % (0-2); LYMPHOCYTES 10 % (9-44); MONOCYTES 23 % (0-8); NEUTROPHIL # MANUAL DIFF 2.9 TH/MM3 (1.8-7.7); POLYS (SEG NEUTROPHILS) 51 % (16-70)
[2017-12-25] MEDS: predniSONE 5 MG TAB PO SCH (08:36)
[2017-12-25] MEDS: POTASSIUM PHOSPHATE MONOBASIC 500 MG TAB PO SCH (08:37)
[2017-12-25] MEDS: CALCIUM CARBONATE 500 MG CHEWABLE TAB CHEW SCH ×2 (08:37→22:06)
[2017-12-25] MEDS: MAGNESIUM OXIDE 400 MG TAB PO SCH (08:37)
[2017-12-25] MEDS: VITAMIN B CMPLX/VITC/FOLIC AC CAP PO SCH (08:37)
[2017-12-25] MEDS: MULTIVITAMIN TAB PO SCH (08:37)
[2017-12-25] MEDS: PANTOPRAZOLE SOD 40 MG DELAYED RELEASE TAB PO SCH (08:37)
[2017-12-25] MEDS: ALLOPURINOL 100 MG TAB PO SCH (08:37)
[2017-12-25] MEDS: SODIUM CHLORIDE 0.9% FLUSH 10 ML FLUSH IV FLUSH SCH ×2 (08:37→22:06)
[2017-12-25] MEDS: CINACALCET HYDROCHLORIDE 30 MG TAB PO SCH (08:37)
[2017-12-25] MEDS: PSYLLIUM HUSK SF 3.4 GM in 5.8 GM PKT PO SCH (08:38)
[2017-12-25] MEDS: DOCUSATE SODIUM 100 MG CAP PO SCH ×2 (08:39→21:00)
--- NOTE | 2017-12-25 09:37 | HHI.PR ---
Subjective Remarks Feels better. Objective Vital Signs Date Time Temp Pulse Resp B/P (MAP) Pulse Ox O2 Delivery O2 Flow Rate FiO2 12/25/17 07:23 98.7 66 16 125/77 (93) 97 12/25/17 04:56 98.6 65 126/65 (85) 95 12/25/17 00:04 99.0 52 130/70 (90) 100 12/24/17 20:00 99.2 63 135/69 (91) 100 12/24/17 15:12 98.7 72 18 125/60 (81) 98 12/24/17 11:30 98.9 62 18 129/69 (89) 99 I/O 12/24/17 12/24/17 12/24/17 12/25/17 12/25/17 12/25/17 07:00 15:00 23:00 07:00 15:00 23:00 Intake Total 2195 ml 150 ml 840 ml 1300 ml Output Total 2225 ml 2125 ml 2150 ml Balance -30 ml 150 ml -1285 ml -850 ml Intake Oral 720 ml 840 ml 1200 ml IV Total 1475 ml 150 ml 100 ml Output Urine Total 2225 ml 2125 ml 2150 ml # Bowel Movements 1 Result Diagram: 12/25/174 12/25/174 Objective Remarks Resp: CTAB CV: s1s2 Abd: BS, soft NT/ND Ext: Calves soft NT B Assessment and Plan Problem List: (1) ESRD (end stage renal disease) on dialysis ICD Codes: N18.6 - End stage renal disease; Z99.2 - Dependence on renal dialysis Status: Acute (2) Hyperlipidemia ICD Codes: E78.5 - Hyperlipidemia, unspecified Status: Chronic (3) Hypertension ICD Codes: I10 - Essential (primary) hypertension Status: Acute (4) Kidney transplant status, cadaveric ICD Codes: Z94.0 - Kidney transplant status Assessment and Plan 47 yom s/p recent cadaveric renal transplant. (09/08/17). transferred from [place] with probable pyelonephritis. Reportedly had a CT scan this AM and the report suggested pyelo, but the images were not sent. Will see if we can get them to send the discs. Patient has been started on antibiotics. Denies abd pain. . Has the anorexia and hematuria, but denies any other symptoms. Will continue the antibiotics. Will hold his cellcept for now. Continue his other immunosuppressants. Continue po diet Feels better. Will get results of additional cultures done in [place] after the initial urine culture, as well as the repeat cultures done here. Will check with ID regarding recommended antibiotic course.Continue current management. Problem Qualifiers (1) Hypertension: Qualified Codes: I10 - Essential (primary) hypertension Von Caba Jr., MD Dec 25, 2017 09:36
--- NOTE | 2017-12-25 11:03 | HHI.NPPN ---
Review of Systems General Constitutional: Fatigue Objective Data Data Vital Signs Date Time Temp Pulse Resp B/P (MAP) Pulse Ox O2 Delivery O2 Flow Rate FiO2 12/25/17 07:23 98.7 66 16 125/77 (93) 97 12/25/17 04:56 98.6 65 126/65 (85) 95 12/25/17 00:04 99.0 52 130/70 (90) 100 12/24/17 20:00 99.2 63 135/69 (91) 100 12/24/17 15:12 98.7 72 18 125/60 (81) 98 12/24/17 11:30 98.9 62 18 129/69 (89) 99 -: 12/25/17 0444 12/25/17 0444 Physical Exam General Appearance: Well Developed, No Acute Distress Pulmonary Resp Exam: Clear Bilaterally, Breath Sounds Equal Cardiology CV Exam: Regular, Normal Sinus Rhythm Gastrointestinal/Abdomen GI Exam: Soft, Non-Tender Assessment/Plan Problem List: (1) History of kidney transplant ICD Codes: Z94.0 - Kidney transplant status Plan: On Tacrolimus, CellCept held. Also on Prednisone. Recommend to restart CellCept soon. doing better (2) Hypertension ICD Codes: I10 - Essential (primary) hypertension Status: Acute Plan: Continue to monitor (3) Sepsis ICD Codes: A41.9 - Sepsis, unspecified organism Plan: ID has seen the patient. On Ceftriaxone. UTI with sepsis, pyelonephritis. Problem Qualifiers (1) Hypertension: Qualified Codes: I10 - Essential (primary) hypertension John Colmenares MD Dec 25, 2017 11:03
[2017-12-25 11:19] LABS: BILIRUBIN, URINE NEG (NEG); BLOOD, URINE TRACE (NEG); GLUCOSE,URINE NEG (NEG); KETONE, URINE NEG (NEG); MUCUS URINE FEW /lpf (OCC); NITRITE,URINE NEG (NEG); PH, URINE 5.5 (5.0-8.5); URINE COLOR YELLOW (YELLW/STRAW); URINE LEUKOCYTE ESTERASE TRACE (NEG)
--- NOTE | 2017-12-25 12:04 | HHI.IDPN ---
Subjective Subjective Remarks is a 47 y/o AAM with PMHx of ESRD on HD using AV fistula LUE, FSGS as cause for ESRD, patient underwent an elective donor transplant on 2017. Preoperatively patient denies any infections or exposure to people with infections. Patient was seen in August 2017 by me for postoperative balanitis and treated with daptomycin IV and this resolved. Thereafter patient has never had a Platt catheter in place. Patient reports approximately 3 days prior to admission he developed fevers with chills, bilateral flank pain as well as hematuria. He contacted Dr. Caba his transplant surgeon who asked him to get some basic labs done. Patient continued to feel ill despite being treated with Keflex and therefore presented to local hospital in [place]. Patient had a sepsis workup initiated in the emergency department there and thereafter was transferred to [facility]. Patient had blood cultures done at the hospital which are now showing growth of gram-negative rods. Patient's urine culture was positive for E. coli and is sensitive to cephalosporins. Patient had a CT scan done at the other hospital which showed perinephric fat stranding suggestive of possible pyelonephritis. Patient was started on ceftriaxone IV as well as Levaquin IV at the other hospital and this was continued at [facility]. At the time of my evaluation patient is on a regular floor sitting in his chair appears comfortable denies any chest pain shortness of breath or any other systemic symptoms. Infectious diseases consulted for evaluation and management of sepsis in the patient's post transplant and immunocompromised. Overnight events reviewed No fever No rash No diarrhea Antibiotics Ceftriaxone IV Lines Line sites with no e.o infection. Past Medical History reviewed Allergies: Coded Allergies: Sulfa (Sulfonamide Antibiotics) (Unverified Allergy, Intermediate, Respiratory Failure and Swelling, 03/07/17) Uncoded Allergies: seasonal allergies (Allergy, Mild, 08/18/16) Objective . Vital Signs Date Time Temp Pulse Resp B/P (MAP) Pulse Ox O2 Delivery O2 Flow Rate FiO2 12/25/17 11:45 98.6 73 16 160/94 (116) 100 12/25/17 07:23 98.7 66 16 125/77 (93) 97 12/25/17 04:56 98.6 65 126/65 (85) 95 12/25/17 00:04 99.0 52 130/70 (90) 100 12/24/17 20:00 99.2 63 135/69 (91) 100 12/24/17 15:12 98.7 72 18 125/60 (81) 98 . Laboratory Tests Test 12/24/17 05:31 12/25/17 04:44 White Blood Count 4.3 TH/MM3 4.5 TH/MM3 Red Blood Count 4.05 MIL/MM3 3.89 MIL/MM3 Hemoglobin 11.9 GM/DL 11.7 GM/DL Hematocrit 36.2 % 34.8 % Mean Corpuscular Volume 89.4 FL 89.5 FL Mean Corpuscular Hemoglobin 29.4 PG 30.0 PG Mean Corpuscular Hemoglobin Concent 32.8 % 33.5 % Red Cell Distribution Width 14.6 % 14.7 % Platelet Count 149 TH/MM3 160 TH/MM3 Mean Platelet Volume 8.6 FL 9.0 FL CBC Comment AUTO DIFF AUTO DIFF Differential Total Cells Counted 100 100 Neutrophils % (Manual) 72 % 51 % Band Neutrophils % 8 % 14 % Lymphocytes % 5 % 10 % Monocytes % 15 % 23 % Neutrophils # (Manual) 3.4 TH/MM3 2.9 TH/MM3 Differential Comment FINAL DIFF MANUAL FINAL DIFF MANUAL Platelet Estimate LOW NORMAL Platelet Morphology Comment NORMAL NORMAL Red Cell Morphology Comment NORMAL NORMAL Neutrophils (%) (Auto) 51.7 % Lymphocytes (%) (Auto) 14.3 % Monocytes (%) (Auto) 32.2 % Eosinophils (%) (Auto) 0.9 % Basophils (%) (Auto) 0.9 % Neutrophils # (Auto) 2.3 TH/MM3 Lymphocytes # (Auto) 0.6 TH/MM3 Monocytes # (Auto) 1.4 TH/MM3 Eosinophils # (Auto) 0.0 TH/MM3 Basophils # (Auto) 0.0 TH/MM3 Eosinophils % 1 % Basophils % 1 % Laboratory Tests Test 12/24/17 05:31 12/25/17 04:44 Blood Urea Nitrogen 23 MG/DL 19 MG/DL Creatinine 1.77 MG/DL 1.61 MG/DL Random Glucose 96 MG/DL 84 MG/DL Calcium Level 8.2 MG/DL 8.4 MG/DL Phosphorus Level 2.1 MG/DL 2.4 MG/DL Magnesium Level 1.7 MG/DL 1.7 MG/DL Sodium Level 137 MEQ/L 138 MEQ/L Potassium Level 4.2 MEQ/L 4.6 MEQ/L Chloride Level 105 MEQ/L 105 MEQ/L Carbon Dioxide Level 21.1 MEQ/L 23.5 MEQ/L Anion Gap 11 MEQ/L 10 MEQ/L Estimat Glomerular Filtration Rate 50 ML/MIN 56 ML/MIN Microbiology Date/Time Source Procedure Growth Status 12/23/17 10:28 Blood Peripheral Aerobic Blood Culture - Preliminary NO GROWTH IN 2 DAYS Resulted 12/23/17 10:28 Blood Peripheral Anaerobic Blood Culture - Preliminary NO GROWTH IN 2 DAYS Resulted 12/23/17 10:23 Blood Peripheral Aerobic Blood Culture - Preliminary NO GROWTH IN 2 DAYS Resulted 12/23/17 10:23 Blood Peripheral Anaerobic Blood Culture - Preliminary NO GROWTH IN 2 DAYS Resulted 12/22/17 13:57 Blood Peripheral Aerobic Blood Culture - Preliminary NO GROWTH IN 3 DAYS Resulted 12/22/17 13:57 Blood Peripheral Anaerobic Blood Culture - Preliminary NO GROWTH IN 3 DAYS Resulted 12/22/17 13:50 Blood Peripheral Aerobic Blood Culture - Preliminary NO GROWTH IN 3 DAYS Resulted 12/22/17 13:50 Blood Peripheral Anaerobic Blood Culture - Preliminary NO GROWTH IN 3 DAYS Resulted 12/25/17 09:55 Urine Clean Catch Urine Culture Pending Received 12/22/17 13:30 Urine Clean Catch Urine Culture - Final NO GROWTH IN 48 HOURS. Complete Imaging Last Impressions Renal Ultrasound 12/22/17 0000 Signed Impressions: CONCLUSION: 1. The resistive indices are approximately 0.6-0.7. This is within normal limi ts and unchanged from previous examination. 2. There is no hydronephrosis. No perinephric fluid collections are identified . 3. Appearance is stable compared to the previous study dated 09/25/2017. Physical Exam GENERAL: This is a well-nourished, well-developed patient, in no apparent distress. SKIN: No rashes, ecchymoses or lesions. Cool and dry. HEAD: Atraumatic. Normocephalic. No temporal or scalp tenderness. EYES: Pupils equal round and reactive. Extraocular motions intact. No scleral icterus. No injection or drainage. ENT: Nose without bleeding, purulent drainage or septal hematoma. Throat without erythema, tonsillar hypertrophy or exudate. Uvula midline. Airway patent. NECK: Trachea midline. Supple, nontender, no meningeal signs. CARDIOVASCULAR: Heart sounds audible. RESPIRATORY: Clear to auscultation. Breath sounds equal bilaterally. No wheezes , rales, or rhonchi. GASTROINTESTINAL: Abdomen soft, non-tender, nondistended. Surgical scar in the right lower quadrant intact with no tenderness. No flank tenderness. MUSCULOSKELETAL: Extremities without clubbing, cyanosis, or edema. No joint tenderness, effusion, or edema noted. No calf tenderness. Negative Homans sign bilaterally. NEUROLOGICAL: Awake and alert. Nonfocal exam Psych cooperative IV line sites with no evidence of infection. Assessment & Plan Remarks Sepsis present on admission Gram-negative bacteremia E. coli UTI with pyelonephritis of the transplanted kidney Status post renal transplant Immune compromised Recommendations Continue Ceftriaxone IV dose increased to 2 gm for bacteremia. Follow blood cultures at [place] Follow blood cultures at [facility]. Follow clinically. nitin Garcia and Dr.Cosma Taveras RN Dw patient Called micro at [facility] and discussed cultures. Recd and reviewed cultures. Cephalosporins sensitive. Medications reviewed. Continue Dapsone and Valcyte per transplant protocol. Will follow along. nitin Patient and CM: will need IV antibiotics using a tunneled cath. Patient expressed concerns about doing his own IV antibiotics at home and would like either daily RN visits or infusion center arrangements, Nitin Garcia. Odalis Morton MD Dec 25, 2017 12:04
[2017-12-25] MEDS: TACROLIMUS 1 MG CAP PO SCH (17:33)
[2017-12-25] MEDS: cefTRIAXone INJ 2,000 MG in SODIUM CHLORIDE 0.9% INJ 100 ML IV SCH (22:07)
[2017-12-26] VITALS (7 sets, daily range): BP systolic 112–174; BP diastolic 67–79; PULSE 59–70; RESP 16–20; TEMP 97.9–99; O2SAT 97–100
[2017-12-26 05:14] LABS: AUTOMATED NEUTROPHIL # 2.8 TH/MM3 (1.8-7.7); BASOPHIL # 0.1 TH/MM3 (0-0.2); EOSINOPHIL # 0.1 TH/MM3 (0-0.4); EOSINOPHIL % 1.4 % (0.0-4.0); HEMATOCRIT 37.7 % (39.0-51.0); HEMOGLOBIN 12.2 GM/DL (13.0-17.0); LYMPH % 18.5 % (9.0-44.0); LYMPHOCYTE # 0.9 TH/MM3 (1.0-4.8); MEAN CELL VOLUME 90.2 FL (80.0-100.0); MEAN CORPUSCULAR HEMOGLOBIN 29.1 PG (27.0-34.0); MEAN CORPUSCULAR HGB CONC 32.3 % (32.0-36.0); MEAN PLATELET VOLUME 8.1 FL (7.0-11.0); MONO % 21.6 % (0.0-8.0); MONOCYTE # 1.1 TH/MM3 (0-0.9); NEUT % 57.5 % (16.0-70.0); PLATELET COUNT 173 TH/MM3 (150-450); RED BLOOD COUNT 4.18 MIL/MM3 (4.50-5.90); RED CELL DISTRIBUTION WIDTH 14.5 % (11.6-17.2); WHITE BLOOD COUNT 4.9 TH/MM3 (4.0-11.0)
[2017-12-26] MEDS: TACROLIMUS 5 MG CAP PO SCH (05:32)
[2017-12-26 05:33] LABS: BICARBONATE 23.8 MEQ/L (21.0-32.0); CALCIUM 8.9 MG/DL (8.5-10.1); CREATININE 1.64 MG/DL (0.60-1.30); MAGNESIUM 1.8 MG/DL (1.5-2.5)
[2017-12-26 05:36] LABS: PHOSPHORUS 2.6 MG/DL (2.5-4.9)
[2017-12-26 07:21] LABS: OVALOCYTES 1+ (NORMAL)
[2017-12-26] MEDS: MULTIVITAMIN TAB PO SCH (08:32)
[2017-12-26] MEDS: PSYLLIUM HUSK SF 3.4 GM in 5.8 GM PKT PO SCH (08:32)
[2017-12-26] MEDS: SODIUM CHLORIDE 0.9% FLUSH 10 ML FLUSH IV FLUSH SCH ×2 (08:33→21:49)
[2017-12-26] MEDS: ALLOPURINOL 100 MG TAB PO SCH (08:33)
[2017-12-26] MEDS: DOCUSATE SODIUM 100 MG CAP PO SCH ×2 (08:33→21:00)
[2017-12-26] MEDS: MAGNESIUM OXIDE 400 MG TAB PO SCH (08:33)
[2017-12-26] MEDS: CALCIUM CARBONATE 500 MG CHEWABLE TAB CHEW SCH ×2 (08:33→21:47)
[2017-12-26] MEDS: POTASSIUM PHOSPHATE MONOBASIC 500 MG TAB PO SCH (08:33)
[2017-12-26] MEDS: PANTOPRAZOLE SOD 40 MG DELAYED RELEASE TAB PO SCH (08:33)
[2017-12-26] MEDS: VITAMIN B CMPLX/VITC/FOLIC AC CAP PO SCH (08:33)
[2017-12-26] MEDS: CINACALCET HYDROCHLORIDE 30 MG TAB PO SCH (08:33)
[2017-12-26] MEDS: predniSONE 5 MG TAB PO SCH (08:34)
--- NOTE | 2017-12-26 09:21 | HHI.PR ---
Subjective Remarks Feels better. No new c/o Objective Vital Signs Date Time Temp Pulse Resp B/P (MAP) Pulse Ox O2 Delivery O2 Flow Rate FiO2 12/26/17 07:30 97.9 59 20 124/68 (86) 97 12/26/17 03:00 98.5 69 16 122/68 (86) 98 12/25/17 23:00 98.5 79 16 123/72 (89) 99 12/25/17 19:00 98.3 69 16 128/77 (94) 99 12/25/17 15:23 99.3 65 16 132/82 (99) 100 12/25/17 11:45 98.6 73 16 160/94 (116) 100 I/O 12/25/17 12/25/17 12/25/17 12/26/17 12/26/17 12/26/17 07:00 15:00 23:00 07:00 15:00 23:00 Intake Total 1300 ml 920 ml 300 ml Output Total 2150 ml 900 ml 1520 ml Balance -850 ml 20 ml -1220 ml Intake Oral 1200 ml 920 ml 300 ml IV Total 100 ml Output Urine Total 2150 ml 900 ml 1520 ml # Bowel Movements 0 Result Diagram: 12/26/17 0456 12/26/17 0456 Objective Remarks Resp - CTAB CV - s1s2 Abd - BS, soft NT/ND Ext - Calves soft NT B Assessment and Plan Problem List: (1) ESRD (end stage renal disease) on dialysis ICD Codes: N18.6 - End stage renal disease; Z99.2 - Dependence on renal dialysis Status: Acute (2) Hyperlipidemia ICD Codes: E78.5 - Hyperlipidemia, unspecified Status: Chronic (3) Hypertension ICD Codes: I10 - Essential (primary) hypertension Status: Acute (4) Kidney transplant status, cadaveric ICD Codes: Z94.0 - Kidney transplant status Assessment and Plan 47 yom s/p recent cadaveric renal transplant. (09/08/17). transferred from [place] with probable pyelonephritis. Reportedly had a CT scan this AM and the report suggested pyelo, but the images were not sent. Will see if we can get them to send the discs. Patient has been started on antibiotics. Denies abd pain. . Has the anorexia and hematuria, but denies any other symptoms. Will continue the antibiotics. Will hold his cellcept for now. Continue his other immunosuppressants. Continue po diet Feels better. cultures negative here so far, but [place] cultures grew E Coli. His repeat UA here with small + leukocyte esterase. Will plan for outpatient antibiotic course. Tunneled osullivan to be placed today. Final disposition pending. Appreciate ID assistance. Problem Qualifiers (1) Hypertension: Qualified Codes: I10 - Essential (primary) hypertension Von Caba Jr., MD Dec 26, 2017 09:21
--- NOTE | 2017-12-26 09:44 | HHI.FF ---
Infusion Therapy Location of Infusion Therapy: Home [facility] Care IV Infusion Order Patient Information Appointment Date: Dec 26, 2017 Patient Weight 113.5 kg Diagnosis: Diagnosis E.coli bacteremia Coded Allergies: Sulfa (Sulfonamide Antibiotics) (Unverified Allergy, Intermediate, Respiratory Failure and Swelling, 03/07/17) Uncoded Allergies: seasonal allergies (Allergy, Mild, 08/18/16) Administer Medication Ceftriaxone 2 grams IV q 24 hours Start Treatment: Dec 26, 2017 Stop Treatment: Jan 05, 2018 Additional Information Venous access: Tunneled Catheter Additional Instructions [x] Peripheral flush and dressing changes per protocol [x] Implanted port and central dragline oiler: * Implanted port: 10 ml Normal Saline followed by 5 ml Heparin 100 units/ml Heparin flush after each use and monthly to maintain. [] May leave port accessed during therapy. [] May leave peripheral site accessed for duration of therapy. [x] If patient has SOB or respiratory distress, check oxygen saturation. If less than 90% or clinical signs of respiratory distress, administer oxygen at 2 L/min. via nasal cannula and notify physician. [x] Anaphylaxis/Reaction orders: * Stop infusion. * Keep IV line open with saline flush. * Notify physician. * Monitor vital signs every 15 minutes until symptoms resolve. * Check Oxygen saturation; Oxygen at 2 L/min. via nasal cannula if less than 90% or clinical signs of respiratory distress. * Administer diphenhydramine (Benadryl) 25 mg IV STAT, (unless patient has received as pre-med). May repeat once, if necessary. * Solu-Cortef 250 mg IVP over 30-60 seconds, use 100 mg vials for each dissolution. * Epinephrine (1mg/1 ml) 0.3 mg subcutaneously or IVP now with any signs of respiratory distress. * Check with physician for new additional pre-med orders if patient is re- challenged or re-treated. [x] May remove PICC line when treatment complete, after confirming with Physician. [x] If the patient is admitted to the hospital, the ED, or transferred via [facility] , complete transfer form including medication reconciliation order sheet. Laboratory Tests Weekly Labs: CBC w/diff, Creatinine, CRP, LFT's (Hepatic function test) Additional Information Please draw weekly labs, fax to office and Call with abnormals, change in clinical condition or problems to: Dr.William Caba office or Odalis Morton or Akbar WALDROP Physician Follow up appt: Patient to schedule follow up appt with as planned post discharge. Follow up with PCP Follow up with other MDs as planned. Counseling: Counseled about medication side effects Counseled about PICC line care and hand hygiene. Odalis Morton MD Dec 26, 2017 09:44
[2017-12-26] MEDS ORDERED: SOLU250I IV PUSH (09:55)
[2017-12-26] MEDS ORDERED: EPIN1INJ21 SQ (09:55)
[2017-12-26] MEDS ORDERED: CEFT1INJ5 IV (09:55)
[2017-12-26] MEDS ORDERED: EPIN1INJ21 IV PUSH (09:55)
[2017-12-26] MEDS ORDERED: LIDOCAINE 1%/EPINEPHrine 1:100,000 SOLN 20 ML VIAL ONE (10:39)
[2017-12-26] MEDS ORDERED: SODIUM CHLORIDE 0.9% FLUSH 10 ML FLUSH IVF PRN ×2 (11:15)
--- NOTE | 2017-12-26 11:16 | PD.RAD ---
Radiology Post PICC Prog Note Pre Procedure Diagnosis: (1) ESRD (end stage renal disease) on dialysis (2) UTI (lower urinary tract infection) Post Procedure Diagnosis: (1) ESRD (end stage renal disease) on dialysis (2) UTI (lower urinary tract infection) Procedure: Right PICC line placement Procedure Date: Dec 26, 2017 Supervising Radiologist Carlos Mays JR Proceduralist/Assist: Grace Dixon, RT(R)(CV), Other Device Side: Right Urdu: 4 single lumen cm: 28 Catheter: Power PICC Plan of Activity Patient to Unit: Nursing Unit Patient Condition: Good PICC line can be used immediately Additional Comments: Placed a tunneled right IJ PICC line. In good position and functions well. OK to use. Jr. Davon,Carlos Garcia MD Dec 26, 2017 11:16
--- NOTE | 2017-12-26 11:41 | HHI.NPPN ---
Subjective History of Present Illness 47 year old with kidney transplant with UTI Review of Systems General Constitutional: Fatigue Objective Data Data Vital Signs Date Time Temp Pulse Resp B/P (MAP) Pulse Ox O2 Delivery O2 Flow Rate FiO2 12/26/17 07:30 97.9 59 20 124/68 (86) 97 12/26/17 03:00 98.5 69 16 122/68 (86) 98 12/25/17 23:00 98.5 79 16 123/72 (89) 99 12/25/17 19:00 98.3 69 16 128/77 (94) 99 12/25/17 15:23 99.3 65 16 132/82 (99) 100 12/25/17 11:45 98.6 73 16 160/94 (116) 100 -: 12/26/17 0456 12/26/17 0456 Physical Exam General Appearance: Well Developed, No Acute Distress Pulmonary Resp Exam: Clear Bilaterally, Breath Sounds Equal Cardiology CV Exam: Regular, Normal Sinus Rhythm Gastrointestinal/Abdomen GI Exam: Soft, Non-Tender Assessment/Plan Problem List: (1) History of kidney transplant ICD Codes: Z94.0 - Kidney transplant status Plan: On Tacrolimus, CellCept held. Also on Prednisone. Recommend to restart CellCept soon. doing better cr stable 1.64 Tac level were high repeat level higher 11.1 decrease evening dose to 3 mg and may take 4 mg q 12. (2) Hypertension ICD Codes: I10 - Essential (primary) hypertension Status: Acute Plan: Continue to monitor (3) Sepsis ICD Codes: A41.9 - Sepsis, unspecified organism Plan: ID has seen the patient. On Ceftriaxone. UTI with sepsis, pyelonephritis. Problem Qualifiers (1) Hypertension: Qualified Codes: I10 - Essential (primary) hypertension John Colmenares MD Dec 26, 2017 11:41
--- NOTE | 2017-12-26 11:56 | HHI.PR ---
Subjective Remarks In the chair. Appears in nad. Urin in clear . No pain or burning with urination. Good UOP. No fever or chills Feels improving Objective Vitals Vital Signs Date Time Temp Pulse Resp B/P (MAP) Pulse Ox O2 Delivery O2 Flow Rate FiO2 12/26/17 07:30 97.9 59 20 124/68 (86) 97 12/26/17 03:00 98.5 69 16 122/68 (86) 98 12/25/17 23:00 98.5 79 16 123/72 (89) 99 12/25/17 19:00 98.3 69 16 128/77 (94) 99 12/25/17 15:23 99.3 65 16 132/82 (99) 100 I/O 12/25/17 12/25/17 12/25/17 12/26/17 12/26/17 12/26/17 07:00 15:00 23:00 07:00 15:00 23:00 Intake Total 1300 ml 920 ml 300 ml Output Total 2150 ml 900 ml 1520 ml Balance -850 ml 20 ml -1220 ml Intake Oral 1200 ml 920 ml 300 ml IV Total 100 ml Output Urine Total 2150 ml 900 ml 1520 ml # Bowel Movements 0 Result Diagram: 12/26/17 0456 12/26/17 0456 Imaging Last Impressions Renal Ultrasound 12/22/17 0000 Signed Impressions: CONCLUSION: 1. The resistive indices are approximately 0.6-0.7. This is within normal limi ts and unchanged from previous examination. 2. There is no hydronephrosis. No perinephric fluid collections are identified . 3. Appearance is stable compared to the previous study dated 09/25/2017. Objective Remarks GENERAL: This is a well-nourished, well-developed patient, in no apparent distress. CARDIOVASCULAR: Regular rate and rhythm without murmurs, gallops, or rubs. RESPIRATORY: Clear to auscultation. Breath sounds equal bilaterally. No wheezes , rales, or rhonchi. GASTROINTESTINAL: Abdomen soft, non-tender, nondistended. MUSCULOSKELETAL: Extremities without clubbing, cyanosis, or edema. NEUROLOGICAL: Awake and alert. Normal speech. A/P Assessment and Plan 47 y/o male with a history of s/p recent cadaveric renal transplant. (09/08/17), HTN, HLD, Gout was sent to [facility] with complaints of blood in his urine. Pt is transferred from [place] with probable pyelonephritis. Pyelonephritis s/p renal transplant UTI with E. coli Hematuria Bacteremia ( per report from [facility] and Dr Caba patient with E coli ) monitor reports from the hospital positive blood cultures and UTI with E. coli. Tunneled osullivan 12/26. IVF for hydration IV antibiotics: Rocephin. Monitor urine cultures ( will have report from other hospital also). DC Levaquin 250 mg IV QD. Transplant surgeon Dr. Caba consulted and is following Cont home medications, hold cell Cept per Dr. Caba Consult nephrology Dr Colmenares appreciate recs. Monitor labs. CBC in AM Pain management with PO [place] Repeat blood cultures 12/21/17 NTD. Repeat blood cultures 12/23 negative to date ID consulted as patient with bacteremia, immunocompromised DVT prophylaxis: SCDs Discussed Condition With Patient, nurse Discussed with Dr Durbin surgeon Discharge plan: DC when improved cleared by Dr. Caba kidney transplant surgeon and infectious disease specialist. ID specialist ff for DC plan recommendations. Isabella Teague MD Dec 26, 2017 11:56
--- NOTE | 2017-12-26 12:43 | HHI.PR ---
Addendum to Inpatient Note Addendum Reason: Additional Documentation Additional Information Discharge orders placed in chart. brenda Garcia Transplant surgeon he will follow patients labs as outpatient. Tunneled cath today. Will sign off please call back if any change in clinical condition or questions. I will be OOT from 12/27/2017 to 01/08/2018. I will be back in town 01/09/2018. Odalis Morton MD Dec 26, 2017 12:43
--- NOTE | 2017-12-26 13:02 | HHI.DS ---
Discharge Summary Admission Date December 21, 2017 at 20:20 Discharge Date: Dec 28, 2017 Admitting Diagnosis (1) Hyperlipidemia ICD Code: E78.5 - Hyperlipidemia, unspecified Status: Chronic (2) UTI (lower urinary tract infection) ICD Code: N39.0 - Urinary tract infection, site not specified (3) ESRD (end stage renal disease) on dialysis ICD Code: N18.6 - End stage renal disease; Z99.2 - Dependence on renal dialysis Status: Acute (4) Sepsis ICD Code: A41.9 - Sepsis, unspecified organism (5) Hypertension ICD Code: I10 - Essential (primary) hypertension Status: Acute (6) Kidney transplant status, cadaveric ICD Code: Z94.0 - Kidney transplant status (7) History of kidney transplant ICD Code: Z94.0 - Kidney transplant status Procedures No procedures Brief History - From Admission 47 y/o male with a history of HTN, Gout and a kidney transplant, in Aug [address] [facility] with complaints of blood in his urine. Yesterday he presented to a clinic in [place] and a urinalysis and culture was completes. UA showed pyelonephritis and patient was transferred to follow up with Dr. Caba, his transplant surgeon. He denies any associated symptoms, no dysuria, frequency, chest pain or sob. CBC/BMP: 12/26/17 0456 12/26/17 0456 Significant Findings Laboratory Tests Test 12/24/17 05:31 12/25/17 04:44 12/25/17 09:55 12/26/17 04:56 Red Blood Count 4.05 MIL/MM3 (4.50-5.90) 3.89 MIL/MM3 (4.50-5.90) 4.18 MIL/MM3 (4.50-5.90) Hemoglobin 11.9 GM/DL (13.0-17.0) 11.7 GM/DL (13.0-17.0) 12.2 GM/DL (13.0-17.0) Hematocrit 36.2 % (39.0-51.0) 34.8 % (39.0-51.0) 37.7 % (39.0-51.0) Platelet Count 149 TH/MM3 (150-450) Neutrophils % (Manual) 72 % (16-70) Band Neutrophils % 8 % (0-6) 14 % (0-6) Lymphocytes % 5 % (9-44) Monocytes % 15 % (0-8) 23 % (0-8) Platelet Estimate LOW (NORMAL) Blood Urea Nitrogen 23 MG/DL (7-18) 19 MG/DL (7-18) 19 MG/DL (7-18) Creatinine 1.77 MG/DL (0.60-1.30) 1.61 MG/DL (0.60-1.30) 1.64 MG/DL (0.60-1.30) Calcium Level 8.2 MG/DL (8.5-10.1) 8.4 MG/DL (8.5-10.1) Phosphorus Level 2.1 MG/DL (2.5-4.9) 2.4 MG/DL (2.5-4.9) Estimat Glomerular Filtration Rate 50 ML/MIN (>89) 56 ML/MIN (>89) 55 ML/MIN (>89) Monocytes (%) (Auto) 32.2 % (0.0-8.0) 21.6 % (0.0-8.0) Lymphocytes # (Auto) 0.6 TH/MM3 (1.0-4.8) 0.9 TH/MM3 (1.0-4.8) Monocytes # (Auto) 1.4 TH/MM3 (0-0.9) 1.1 TH/MM3 (0-0.9) Urine Occult Blood TRACE (NEG) Urine Leukocyte Esterase TRACE (NEG) Urine WBC 9 /hpf (0-5) Urine Mucus FEW /lpf (OCC) Ovalocytes 1+ (NORMAL) Imaging Last Impressions Renal Ultrasound 12/22/17 0000 Signed Impressions: CONCLUSION: 1. The resistive indices are approximately 0.6-0.7. This is within normal limi ts and unchanged from previous examination. 2. There is no hydronephrosis. No perinephric fluid collections are identified . 3. Appearance is stable compared to the previous study dated 09/25/2017. PE at Discharge GENERAL: This is a well-nourished, well-developed patient, in no apparent distress. CARDIOVASCULAR: Regular rate and rhythm without murmurs, gallops, or rubs. RESPIRATORY: Clear to auscultation. Breath sounds equal bilaterally. No wheezes , rales, or rhonchi. GASTROINTESTINAL: Abdomen soft, non-tender, nondistended. MUSCULOSKELETAL: Extremities without clubbing, cyanosis, or edema. NEUROLOGICAL: Awake and alert. Normal speech. Pt update on day of discharge The patient is in the chair he appears to not acute distress. No fever or chills overnight. No suprapubic pain or back pain. Urine culture is negative. Patient will receive antibiotic today and can be discharged follow-up as outpatient. Hospital Course 47 y/o male with a history of s/p recent cadaveric renal transplant. (09/08/17), HTN, HLD, Gout was sent to [facility] with complaints of blood in his urine. Pt is transferred from [place] with probable pyelonephritis. Pyelonephritis s/p renal transplant UTI with E. coli Hematuria Bacteremia ( per report from [facility] and Dr Caba patient with E coli ) monitor reports from the hospital positive blood cultures and UTI with E. coli. Tunneled osullivan 12/26. IVF for hydration IV antibiotics: Rocephin. Monitor urine cultures ( will have report from other hospital also). DC Levaquin 250 mg IV QD. Transplant surgeon Dr. Caba consulted and is following Cont home medications, hold cell Cept per Dr. Caba Consult nephrology Dr Colmenares appreciate recs. Monitor labs. CBC in AM Pain management with PO [place] Repeat blood cultures 12/21/17 NTD. Repeat blood cultures 12/23 negative to date ID consulted as patient with bacteremia, immunocompromised DVT prophylaxis: SCDs Discussed Condition With Patient, nurse Discussed with Dr Durbin surgeon Antibiotic at DC per ID recommendations Dr Morton: Ceftriaxone 2 grams IV q 24 hours. Start Treatment: Dec 26, 2017. Stop Treatment: Jan 05, 2018. Infusion therapy done per ID DC patient home with home health. To follow up as OP with PCP and consultants Pt Condition on Discharge: Stable Discharge Disposition: Disch w/ Home Health Serv Discharge Time: > 30 minutes Discharge Instructions DIET: Follow Instructions for: As Tolerated, No Restrictions Additional Diet Instructions: No protein restriction 4GM sodium Activities you can perform: Regular-No Restrictions Follow up Referrals: Nephrology - 3-5 Days PCP Follow-up - 2-3 Days Surgical - 1 Week with Von Caba Jr., MD New Medications: Ceftriaxone Inj (Ceftriaxone Inj) 1 Gram Inj 2 GM IV DAILY for Infection for 11 Days, BAG 0 Refills Epinephrine Inj (Epinephrine Inj) 1 Mg/Ml (1 Ml) Inj 0.3 MG IV PUSH ONCE PRN for ALLERGIC REACTION, #1 VIAL Epinephrine Inj (Epinephrine Inj) 1 Mg/Ml (1 Ml) Inj 0.3 MG SQ ONCE PRN for ALLERGIC REACTION, #1 VIAL Give with any signs of respiratory distress. Hydrocortisone Inj (Solu-Cortef Inj) 250 Mg/2 Ml Inj 250 MG IV PUSH ONCE PRN for ALLERGIC REACTION, #1 VIAL 0 Refills Give over 30-60 seconds. Continued Medications: Allopurinol (Zyloprim) 100 Mg Tab 100 MG PO DAILY for Control Inflammation, #30 TAB 5 Refills B-Complex W/ C & Folic Acid (Sydnee-Michelle Rx) 1 Tab 1 TAB PO DAILY for Nutritional Supplement, #30 TAB 0 Refills Cinacalcet (Sensipar) 60 Mg Tab 60 MG PO DAILY, #30 TAB 0 Refills Dapsone (Dapsone) 25 Mg Tab 50 MG PO DAILY for Exposure Prophylaxis for 90 Days, #180 TAB Docusate Sodium (Dok) 100 Mg Cap 100 MG PO BID for Prevent Constipation, #30 CAP 2 Refills Magnesium Oxide (Mag-Oxide) 200 Mg Magnesium Tablet 2 Mycophenolate (Cellcept) 500 Mg Tab 1000 MG PO BID@0600,1800 for Immunosuppression, #180 TAB Oxycodone HCl/Acetaminophen (Oxycodone-Acetaminophen 5-325) 5 Mg-325 Mg Tablet 1 TAB PO Q6H PRN for PAIN SCALE 1 TO 5, #30 TAB Pantoprazole (Protonix) 40 Mg Tab 40 MG PO DAILY for Reflux, #30 TAB 0 Refills Potassium Phosphate Monobasic (K-Phos) 500 Mg Tab 500 MG PO Q12HR for Nutritional Supplement, #30 TAB 2 Refills Prednisone (Prednisone) 20 Mg Tab 20 MG PO DAILY for Immunosuppression for 90 Days, #90 TAB 2 Refills Tacrolimus (Prograf) 5 Mg Cap 5 MG PO DAILY@06,18 for Immunosuppression, #180 CAP Valganciclovir (Valcyte) 450 Mg Tab 450 MG PO TuThSa@0900 for Exposure Prophylaxis for 90 Days, TAB [Calcium Carbonate Chew] () 500 MG CHEW 500 MG CHEW BID@09,16, #30 2 Refills [Nystatin Liq] () 5 ML SUSP 5 ML SWISH-SWAL QID for 90 Days Isabella Teague MD Dec 26, 2017 13:02
--- NOTE | 2017-12-26 14:44 | RADRPT ---
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 Probable transplant pyelonephriti s. CLINICAL DATA: This is the patient's initial encounter. Patient reports that signs and symptoms have been present for 1 week and indicates a pain score of 0/10. MEDICAL/SURGICAL HISTORY: Hypertension. gout CAD FSGS ESRD kidney transplant AVF lt arm wrist s urgery COMPARISON: No prior [place] exams available for comparison. FLUORO TIME (min): 0.7 IMAGE SERIES: 2 DEVICE(S): Right 5 fr tunneled power pic 28 cm . . PROCEDURE : 1. Fluoroscopic guidance. 2. Tunneled PICC catheter placement 3. Conscious sedation with continuous EKG and oximetry monitoring. The risks, benefits and alternatives to the procedure were explained and verbal and written consent w as obtained. The site was prepped in sterile fashion. Full sterile technique was used, including ca p, mask, sterile gloves and gown and a large sterile sheet. Hand hygiene and 2% chlorhexidine and Be tadine was utilized per protocol for cutaneous antisepsis with appropriate dry time for site. The sk in and subcutaneous tissues were infiltrated with local anesthetic solution. With fluoroscopic guidance a dermatotomy was created in the supraclavicular region. A micropuncture set was used to access to the right internal jugular vein . A small peel-away sheath was placed. A s ubcutaneous tunnel was created and in antegrade fashion the catheter was pulled through the tunnel, c ut to the appropriate length and place through the sheath. The catheter was locked with heparin and sutured in place. Conscious sedation was performed with the prescribed dosages and duration as above in the presence of an independent trained radiology nurse to assist in the monitoring of the patient. EKG and oximetry remained stable throughout the procedure. The patient tolerated the procedure well and there were no complications. The patient was sent to post anesthesia recovery in stable condition. CONCLUSION: 1. Uncomplicated tunneled PICC catheter placement as above. Electronically signed by: Carlos Mays MD 12/26/2017 2:43 PM EDT
--- NOTE | 2017-12-26 14:49 | HHI.PR ---
Subjective Remarks In the chair. in nad Eating better appetite is coming back no fever ro chills no n/v/d/c. Objective Vitals Vital Signs Date Time Temp Pulse Resp B/P (MAP) Pulse Ox O2 Delivery O2 Flow Rate FiO2 12/26/17 11:59 147/79 (101) 12/26/17 11:48 98.1 63 20 174/76 (108) 100 12/26/17 07:30 97.9 59 20 124/68 (86) 97 12/26/17 03:00 98.5 69 16 122/68 (86) 98 12/25/17 23:00 98.5 79 16 123/72 (89) 99 12/25/17 19:00 98.3 69 16 128/77 (94) 99 12/25/17 15:23 99.3 65 16 132/82 (99) 100 I/O 12/25/17 12/25/17 12/25/17 12/26/17 12/26/17 12/26/17 07:00 15:00 23:00 07:00 15:00 23:00 Intake Total 1300 ml 920 ml 300 ml Output Total 2150 ml 900 ml 1520 ml Balance -850 ml 20 ml -1220 ml Intake Oral 1200 ml 920 ml 300 ml IV Total 100 ml Output Urine Total 2150 ml 900 ml 1520 ml # Bowel Movements 0 Result Diagram: 12/26/17 0456 12/26/17 0456 Imaging Last Impressions Catheter Placement X-Ray 12/26/17 0000 Signed Impressions: CONCLUSION: 1. Uncomplicated tunneled PICC catheter placement as above. Renal Ultrasound 12/22/17 0000 Signed Impressions: CONCLUSION: 1. The resistive indices are approximately 0.6-0.7. This is within normal limi ts and unchanged from previous examination. 2. There is no hydronephrosis. No perinephric fluid collections are identified . 3. Appearance is stable compared to the previous study dated 09/25/2017. Objective Remarks GENERAL: This is a well-nourished, well-developed patient, in no apparent distress. CARDIOVASCULAR: Regular rate and rhythm without murmurs, gallops, or rubs. RESPIRATORY: Clear to auscultation. Breath sounds equal bilaterally. No wheezes , rales, or rhonchi. GASTROINTESTINAL: Abdomen soft, non-tender, nondistended. MUSCULOSKELETAL: Extremities without clubbing, cyanosis, or edema. NEUROLOGICAL: Awake and alert. Normal speech. A/P Assessment and Plan 47 y/o male with a history of s/p recent cadaveric renal transplant. (09/08/17), HTN, HLD, Gout was sent to [facility] with complaints of blood in his urine. Pt is transferred from [place] with probable pyelonephritis. Pyelonephritis s/p renal transplant UTI with E. coli Hematuria Bacteremia ( per report from [facility] and Dr Caba patient with E coli ) monitor reports from the hospital positive blood cultures and UTI with E. coli. Tunneled osullivan 12/26. IVF for hydration IV antibiotics: Rocephin. Monitor urine cultures ( will have report from other hospital also). DC Levaquin 250 mg IV QD. Transplant surgeon Dr. Caba consulted and is following Cont home medications, hold cell Cept per Dr. Caba Consult nephrology Dr Colmenares appreciate recs. Monitor labs. CBC in AM Pain management with PO [place] Repeat blood cultures 12/21/17 NTD. Repeat blood cultures 12/23 negative to date ID consulted as patient with bacteremia, immunocompromised DVT prophylaxis: SCDs Discussed Condition With Patient, nurse Discussed with Dr Durbin surgeon Discharge plan: DC when improved cleared by Dr. Caba kidney transplant surgeon and infectious disease specialist. ID specialist ff for DC plan recommendations. Isabella Teague MD Dec 26, 2017 14:49
[2017-12-26] MEDS: TACROLIMUS 1 MG CAP PO SCH (17:04)
[2017-12-26] MEDS ORDERED: TACROLIMUS 1 MG CAP PO ONE (18:00)
[2017-12-26] MEDS: cefTRIAXone INJ 2,000 MG in SODIUM CHLORIDE 0.9% INJ 100 ML IV SCH (21:52)
[2017-12-27 03:00] VITALS: BP 122/73; PULSE 63; RESP 16; TEMP 98.1; O2SAT 95
[2017-12-27 05:16] LABS: BICARBONATE 27.1 MEQ/L (21.0-32.0); CALCIUM 8.6 MG/DL (8.5-10.1); CREATININE 1.66 MG/DL (0.60-1.30); MAGNESIUM 1.6 MG/DL (1.5-2.5)
[2017-12-27 05:17] LABS: PHOSPHORUS 2.7 MG/DL (2.5-4.9)
[2017-12-27 05:20] LABS: AUTOMATED NEUTROPHIL # 2.6 TH/MM3 (1.8-7.7); BASOPHIL # 0.1 TH/MM3 (0-0.2); BASOPHIL % 1.2 % (0.0-2.0); EOSINOPHIL # 0.1 TH/MM3 (0-0.4); EOSINOPHIL % 1.3 % (0.0-4.0); HEMATOCRIT 37.3 % (39.0-51.0); HEMOGLOBIN 12.2 GM/DL (13.0-17.0); LYMPH % 20.8 % (9.0-44.0); MEAN CELL VOLUME 89.8 FL (80.0-100.0); MEAN CORPUSCULAR HEMOGLOBIN 29.4 PG (27.0-34.0); MEAN CORPUSCULAR HGB CONC 32.7 % (32.0-36.0); MEAN PLATELET VOLUME 8.3 FL (7.0-11.0); MONO % 20.4 % (0.0-8.0); MONOCYTE # 0.9 TH/MM3 (0-0.9); NEUT % 56.3 % (16.0-70.0); PLATELET COUNT 214 TH/MM3 (150-450); RED BLOOD COUNT 4.16 MIL/MM3 (4.50-5.90); RED CELL DISTRIBUTION WIDTH 14.7 % (11.6-17.2); WHITE BLOOD COUNT 4.6 TH/MM3 (4.0-11.0)
[2017-12-27] MEDS: TACROLIMUS 1 MG CAP PO SCH ×2 (06:18→17:30)
[2017-12-27 07:00] VITALS: BP 119/84; PULSE 71; RESP 16; TEMP 98.2; O2SAT 97
[2017-12-27 08:12] LABS: OVALOCYTES 1+ (NORMAL)
--- NOTE | 2017-12-27 09:00 | HHI.PR ---
Subjective Remarks Patient in nad. no pain no fevers urine is clear Denies chest pain or short of breath. No problem with urination. Objective Vitals Vital Signs Date Time Temp Pulse Resp B/P (MAP) Pulse Ox O2 Delivery O2 Flow Rate FiO2 12/27/17 03:00 98.1 63 16 122/73 (89) 95 12/26/17 23:00 98.3 63 16 112/67 (82) 98 12/26/17 19:00 99.0 66 16 129/77 (94) 99 12/26/17 15:00 98.1 70 20 126/78 (94) 98 12/26/17 11:59 147/79 (101) 12/26/17 11:48 98.1 63 20 174/76 (108) 100 I/O 12/26/17 12/26/17 12/26/17 12/27/17 12/27/17 12/27/17 07:00 15:00 23:00 07:00 15:00 23:00 Intake Total 300 ml 960 ml 240 ml Output Total 1520 ml 1390 ml 1550 ml Balance -1220 ml -430 ml -1310 ml Intake Oral 300 ml 960 ml 240 ml Output Urine Total 1520 ml 1390 ml 1550 ml # Bowel Movements 0 0 1 Result Diagram: 12/27/17 0414 12/27/17 0414 Imaging Last Impressions Catheter Placement X-Ray 12/26/17 0000 Signed Impressions: CONCLUSION: 1. Uncomplicated tunneled PICC catheter placement as above. Renal Ultrasound 12/22/17 0000 Signed Impressions: CONCLUSION: 1. The resistive indices are approximately 0.6-0.7. This is within normal limi ts and unchanged from previous examination. 2. There is no hydronephrosis. No perinephric fluid collections are identified . 3. Appearance is stable compared to the previous study dated 09/25/2017. Objective Remarks GENERAL: This is a well-nourished, well-developed patient, in no apparent distress. CARDIOVASCULAR: Regular rate and rhythm without murmurs, gallops, or rubs. RESPIRATORY: Clear to auscultation. Breath sounds equal bilaterally. No wheezes , rales, or rhonchi. GASTROINTESTINAL: Abdomen soft, non-tender, nondistended. MUSCULOSKELETAL: Extremities without clubbing, cyanosis, or edema. NEUROLOGICAL: Awake and alert. Normal speech. A/P Assessment and Plan 47 y/o male with a history of s/p recent cadaveric renal transplant. (09/08/17), HTN, HLD, Gout was sent to [facility] with complaints of blood in his urine. Pt is transferred from [place] with probable pyelonephritis. Pyelonephritis s/p renal transplant UTI with E. coli Hematuria Bacteremia ( per report from [facility] and Dr Caba patient with E coli ) monitor reports from the hospital positive blood cultures and UTI with E. coli. Tunneled osullivan 12/26. IVF for hydration IV antibiotics: Rocephin. Monitor urine cultures ( will have report from other hospital also). DC Levaquin 250 mg IV QD. Transplant surgeon Dr. Caba consulted and is following Cont home medications, hold cell Cept per Dr. Caba Consult nephrology Dr Colmenares appreciate recs. Monitor labs. CBC in AM Pain management with PO [place] Repeat blood cultures 12/21/17 NTD. Repeat blood cultures 12/23 negative to date ID consulted as patient with bacteremia, immunocompromised DVT prophylaxis: SCDs Discussed Condition With Patient, nurse Discussed with Dr Durbin surgeon Discharge plan: DC when improved cleared by Dr. Caba kidney transplant surgeon and infectious disease specialist. Antibiotic at DC per ID recommendations Dr Morton: Ceftriaxone 2 grams IV q 24 hours. Start Treatment: Dec 26, 2017. Stop Treatment: Jan 05, 2018. Infusion therapy done per Id Plan to DC patient haleigh e with [facility] when arrangements are done tomorrow morning per Dr Caba. Isabella Teague MD Dec 27, 2017 09:00
[2017-12-27] MEDS: DOCUSATE SODIUM 100 MG CAP PO SCH ×2 (10:03→21:00)
[2017-12-27] MEDS: MAGNESIUM OXIDE 400 MG TAB PO SCH (10:04)
[2017-12-27] MEDS: predniSONE 5 MG TAB PO SCH (10:04)
[2017-12-27] MEDS: PANTOPRAZOLE SOD 40 MG DELAYED RELEASE TAB PO SCH (10:04)
[2017-12-27] MEDS: CALCIUM CARBONATE 500 MG CHEWABLE TAB CHEW SCH ×2 (10:04→21:20)
[2017-12-27] MEDS: ALLOPURINOL 100 MG TAB PO SCH (10:04)
[2017-12-27] MEDS: CINACALCET HYDROCHLORIDE 30 MG TAB PO SCH (10:04)
[2017-12-27] MEDS: VITAMIN B CMPLX/VITC/FOLIC AC CAP PO SCH (10:05)
[2017-12-27] MEDS: MULTIVITAMIN TAB PO SCH (10:06)
[2017-12-27] MEDS: SODIUM CHLORIDE 0.9% FLUSH 10 ML FLUSH IV FLUSH SCH ×2 (10:08→21:20)
[2017-12-27] MEDS: SODIUM CHLORIDE 0.9% FLUSH 10 ML FLUSH IVF SCH (10:10)
[2017-12-27] MEDS: POTASSIUM PHOSPHATE MONOBASIC 500 MG TAB PO SCH (10:11)
[2017-12-27] MEDS: PSYLLIUM HUSK SF 3.4 GM in 5.8 GM PKT PO SCH (10:11)
[2017-12-27 11:00] VITALS: BP 133/82; PULSE 69; RESP 20; TEMP 98; O2SAT 99
--- NOTE | 2017-12-27 11:31 | HHI.NPPN ---
Subjective History of Present Illness 47 year old with kidney transplant with UTI Review of Systems General Constitutional: Fatigue Objective Data Data Vital Signs Date Time Temp Pulse Resp B/P (MAP) Pulse Ox O2 Delivery O2 Flow Rate FiO2 12/27/17 11:00 98.0 69 20 133/82 (99) 99 12/27/17 07:00 98.2 71 16 119/84 (96) 97 12/27/17 03:00 98.1 63 16 122/73 (89) 95 12/26/17 23:00 98.3 63 16 112/67 (82) 98 12/26/17 19:00 99.0 66 16 129/77 (94) 99 12/26/17 15:00 98.1 70 20 126/78 (94) 98 12/26/17 11:59 147/79 (101) 12/26/17 11:48 98.1 63 20 174/76 (108) 100 -: 12/27/17 0414 12/27/17 0414 Physical Exam General Appearance: Well Developed, No Acute Distress Pulmonary Resp Exam: Clear Bilaterally, Breath Sounds Equal Cardiology CV Exam: Regular, Normal Sinus Rhythm Gastrointestinal/Abdomen GI Exam: Soft, Non-Tender Assessment/Plan Problem List: (1) History of kidney transplant ICD Codes: Z94.0 - Kidney transplant status Plan: On Tacrolimus, CellCept held. Also on Prednisone. Recommend to restart CellCept soon. doing better cr stable 1.66 Tac level were high repeat level higher 11.1 and may take 4 mg q 12. start Cellcept (2) Hypertension ICD Codes: I10 - Essential (primary) hypertension Status: Acute Plan: Continue to monitor (3) Sepsis ICD Codes: A41.9 - Sepsis, unspecified organism Plan: ID has seen the patient. On Ceftriaxone. UTI with sepsis, pyelonephritis. Problem Qualifiers (1) Hypertension: Qualified Codes: I10 - Essential (primary) hypertension John Colmenares MD Dec 27, 2017 11:31
[2017-12-27 15:00] VITALS: BP 120/71; PULSE 70; RESP 18; TEMP 98.2; O2SAT 100
[2017-12-27] MEDS ORDERED: cefTRIAXone INJ 2,000 MG in SODIUM CHLORIDE 0.9% INJ 100 ML IV SCH ×2 (15:00→18:00)
--- NOTE | 2017-12-27 17:13 | HHI.PR ---
Subjective Remarks No new c/o Objective Vital Signs Date Time Temp Pulse Resp B/P (MAP) Pulse Ox O2 Delivery O2 Flow Rate FiO2 12/27/17 15:00 98.2 70 18 120/71 (87) 100 12/27/17 11:00 98.0 69 20 133/82 (99) 99 12/27/17 07:00 98.2 71 16 119/84 (96) 97 12/27/17 03:00 98.1 63 16 122/73 (89) 95 12/26/17 23:00 98.3 63 16 112/67 (82) 98 12/26/17 19:00 99.0 66 16 129/77 (94) 99 I/O 12/26/17 12/26/17 12/26/17 12/27/17 12/27/17 12/27/17 07:00 15:00 23:00 07:00 15:00 23:00 Intake Total 300 ml 960 ml 240 ml Output Total 1520 ml 1390 ml 1550 ml Balance -1220 ml -430 ml -1310 ml Intake Oral 300 ml 960 ml 240 ml Output Urine Total 1520 ml 1390 ml 1550 ml # Bowel Movements 0 0 1 Result Diagram: 12/27/17 0414 12/27/17 0414 Objective Remarks Resp: CTAB CV: s1s2 Abd: BS, soft NT/ND Ext: Calves soft NT B Assessment and Plan Problem List: (1) ESRD (end stage renal disease) on dialysis ICD Codes: N18.6 - End stage renal disease; Z99.2 - Dependence on renal dialysis Status: Acute (2) Hyperlipidemia ICD Codes: E78.5 - Hyperlipidemia, unspecified Status: Chronic (3) Hypertension ICD Codes: I10 - Essential (primary) hypertension Status: Acute (4) Kidney transplant status, cadaveric ICD Codes: Z94.0 - Kidney transplant status Assessment and Plan 47 yom s/p recent cadaveric renal transplant. (09/08/17). transferred from [place] with probable pyelonephritis. Reportedly had a CT scan this AM and the report suggested pyelo, but the images were not sent. Will see if we can get them to send the discs. Patient has been started on antibiotics. Denies abd pain. . Has the anorexia and hematuria, but denies any other symptoms. Will continue the antibiotics. Will hold his cellcept for now. Continue his other immunosuppressants. Continue po diet Feels okay. Cultures done here remain negative, but [place] cultures grew E Coli. Will discharge tomorrow. Home health set up for outpatient antibiotic course. Appreciate ID assistance. Problem Qualifiers (1) Hypertension: Qualified Codes: I10 - Essential (primary) hypertension Von Caba Jr., MD Dec 27, 2017 17:13
[2017-12-27 20:00] VITALS: BP 148/79; PULSE 84; RESP 20; TEMP 98; O2SAT 100
[2017-12-27 23:49] VITALS: BP 121/58; PULSE 63; RESP 18; TEMP 98.2; O2SAT 97
[2017-12-28 04:00] VITALS: BP 123/73; PULSE 72; RESP 18; TEMP 97.8; O2SAT 98
[2017-12-28] MEDS ORDERED: MYCOPHENOLATE MOFETIL 500 MG TAB PO SCH (06:00)
[2017-12-28] MEDS: TACROLIMUS 1 MG CAP PO SCH (06:04)
[2017-12-28 07:00] VITALS: BP 132/76; PULSE 70; RESP 16; TEMP 98.7; O2SAT 98
[2017-12-28] MEDS: predniSONE 5 MG TAB PO SCH (09:13)
[2017-12-28] MEDS: VITAMIN B CMPLX/VITC/FOLIC AC CAP PO SCH (09:13)
[2017-12-28] MEDS: PSYLLIUM HUSK SF 3.4 GM in 5.8 GM PKT PO SCH (09:14)
[2017-12-28] MEDS: CINACALCET HYDROCHLORIDE 30 MG TAB PO SCH (09:14)
[2017-12-28] MEDS: PANTOPRAZOLE SOD 40 MG DELAYED RELEASE TAB PO SCH (09:14)
[2017-12-28] MEDS: CALCIUM CARBONATE 500 MG CHEWABLE TAB CHEW SCH (09:14)
[2017-12-28] MEDS: MULTIVITAMIN TAB PO SCH (09:14)
[2017-12-28] MEDS: DOCUSATE SODIUM 100 MG CAP PO SCH (09:15)
[2017-12-28] MEDS: POTASSIUM PHOSPHATE MONOBASIC 500 MG TAB PO SCH (09:15)
[2017-12-28] MEDS: ALLOPURINOL 100 MG TAB PO SCH (09:15)
[2017-12-28] MEDS: SODIUM CHLORIDE 0.9% FLUSH 10 ML FLUSH IVF SCH (09:16)
[2017-12-28] MEDS: SODIUM CHLORIDE 0.9% FLUSH 10 ML FLUSH IV FLUSH SCH (09:17)
[2017-12-28] MEDS: MAGNESIUM OXIDE 400 MG TAB PO SCH (09:19)
[2017-12-28 10:52] LABS: AUTOMATED NEUTROPHIL # 2.9 TH/MM3 (1.8-7.7); BASOPHIL # 0.1 TH/MM3 (0-0.2); BASOPHIL % 1.2 % (0.0-2.0); EOSINOPHIL # 0.1 TH/MM3 (0-0.4); EOSINOPHIL % 1.4 % (0.0-4.0); HEMATOCRIT 39.9 % (39.0-51.0); HEMOGLOBIN 12.8 GM/DL (13.0-17.0); LYMPH % 18.6 % (9.0-44.0); LYMPHOCYTE # 0.9 TH/MM3 (1.0-4.8); MEAN CORPUSCULAR HEMOGLOBIN 29.1 PG (27.0-34.0); MEAN PLATELET VOLUME 7.9 FL (7.0-11.0); MONO % 15.4 % (0.0-8.0); MONOCYTE # 0.7 TH/MM3 (0-0.9); NEUT % 63.4 % (16.0-70.0); PLATELET COUNT 292 TH/MM3 (150-450); RED BLOOD COUNT 4.38 MIL/MM3 (4.50-5.90); RED CELL DISTRIBUTION WIDTH 14.7 % (11.6-17.2); WHITE BLOOD COUNT 4.6 TH/MM3 (4.0-11.0)
[2017-12-28 11:00] VITALS: BP 120/74; PULSE 77; RESP 17; TEMP 98.3; O2SAT 100
[2017-12-28 11:15] LABS: BICARBONATE 25.5 MEQ/L (21.0-32.0); CALCIUM 8.5 MG/DL (8.5-10.1); CREATININE 1.84 MG/DL (0.60-1.30); MAGNESIUM 1.7 MG/DL (1.5-2.5); PHOSPHORUS 2.5 MG/DL (2.5-4.9)
[2017-12-28 11:34] LABS: OVALOCYTES 1+ (NORMAL)
--- NOTE | 2017-12-28 11:49 | HHI.PR ---
Subjective Remarks No new c/o Objective Vital Signs Date Time Temp Pulse Resp B/P (MAP) Pulse Ox O2 Delivery O2 Flow Rate FiO2 12/28/17 04:00 97.8 72 18 123/73 (90) 98 12/27/17 23:49 98.2 63 18 121/58 (79) 97 12/27/17 20:00 98.0 84 20 148/79 (102) 100 12/27/17 15:00 98.2 70 18 120/71 (87) 100 I/O 12/27/17 12/27/17 12/27/17 12/28/17 12/28/17 12/28/17 07:00 15:00 23:00 07:00 15:00 23:00 Intake Total 240 ml 960 ml 720 ml Output Total 1550 ml 2000 ml 600 ml Balance -1310 ml -1040 ml 120 ml Intake Oral 240 ml 960 ml 720 ml Output Urine Total 1550 ml 2000 ml 600 ml # Bowel Movements 1 0 Result Diagram: 12/28/17 1017 12/28/17 1017 Objective Remarks Resp: - CTAB CV -: s1s2 Abd - BS, soft NT/ND Ext - Calves soft NT B Assessment and Plan Problem List: (1) ESRD (end stage renal disease) on dialysis ICD Codes: N18.6 - End stage renal disease; Z99.2 - Dependence on renal dialysis Status: Acute (2) Hyperlipidemia ICD Codes: E78.5 - Hyperlipidemia, unspecified Status: Chronic (3) Hypertension ICD Codes: I10 - Essential (primary) hypertension Status: Acute (4) Kidney transplant status, cadaveric ICD Codes: Z94.0 - Kidney transplant status Assessment and Plan 47 yom s/p recent cadaveric renal transplant. (09/08/17). transferred from [place] with probable pyelonephritis. Reportedly had a CT scan this AM and the report suggested pyelo, but the images were not sent. Will see if we can get them to send the discs. Patient has been started on antibiotics. Denies abd pain. . Has the anorexia and hematuria, but denies any other symptoms. Will continue the antibiotics. Will hold his cellcept for now. Continue his other immunosuppressants. Continue po diet Feels okay. Cultures here remain negative, but [place] cultures grew E Coli. Plan for discharge today. Problem Qualifiers (1) Hypertension: Qualified Codes: I10 - Essential (primary) hypertension Von Caba Jr., MD Dec 28, 2017 11:49
[2017-12-28] MEDS ORDERED: cefTRIAXone INJ 2,000 MG in SODIUM CHLORIDE 0.9% INJ 100 ML IV SCH ×2 (13:00→15:00)
--- NOTE | 2017-12-28 13:44 | HHI.NPPN ---
Subjective History of Present Illness 47 year old with kidney transplant with UTI Review of Systems General Constitutional: Fatigue Objective Data Data Vital Signs Date Time Temp Pulse Resp B/P (MAP) Pulse Ox O2 Delivery O2 Flow Rate FiO2 12/28/17 11:00 98.3 77 17 120/74 (89) 100 12/28/17 07:00 98.7 70 16 132/76 (94) 98 12/28/17 04:00 97.8 72 18 123/73 (90) 98 12/27/17 23:49 98.2 63 18 121/58 (79) 97 12/27/17 20:00 98.0 84 20 148/79 (102) 100 12/27/17 15:00 98.2 70 18 120/71 (87) 100 -: 12/28/17 1017 12/28/17 1017 Physical Exam General Appearance: Well Developed, No Acute Distress Pulmonary Resp Exam: Clear Bilaterally, Breath Sounds Equal Cardiology CV Exam: Regular, Normal Sinus Rhythm Gastrointestinal/Abdomen GI Exam: Soft, Non-Tender Assessment/Plan Problem List: (1) History of kidney transplant ICD Codes: Z94.0 - Kidney transplant status Plan: On Tacrolimus, CellCept held. Also on Prednisone. Recommend to restart CellCept soon. doing better cr stable 1.84 Tac level were high repeat level higher 11.5 drawn too early 0414 am and may take 4 mg q 12. started Cellcept (2) Hypertension ICD Codes: I10 - Essential (primary) hypertension Status: Acute Plan: Continue to monitor (3) Sepsis ICD Codes: A41.9 - Sepsis, unspecified organism Plan: ID has seen the patient. On Ceftriaxone. UTI with sepsis, pyelonephritis. Problem Qualifiers (1) Hypertension: Qualified Codes: I10 - Essential (primary) hypertension John Colmenares MD Dec 28, 2017 13:44
[2017-12-28 15:00] VITALS: BP 133/72; PULSE 78; RESP 18; TEMP 98.6; O2SAT 100
== END 2017-12-28 15:25 | disposition home or self-care (01) | DRG 872 ==
LOC: HCPC 20:20
PROVIDERS: ADMIT Hospitalist; ATTEND Hospitalist
PROC: 05HM33Z Insertion of Infusion Device into Right Internal Jugular Vein, Percutaneous Approach (ICD-10-PCS; principal; 2017-12-26)
PROC: B513ZZA Fluoroscopy of Right Jugular Veins, Guidance (ICD-10-PCS; 2017-12-26)
DX: A41.50 Gram-negative sepsis, unspecified (principal); T86.13 Kidney transplant infection; N12 Tubulo-interstitial nephritis, not specified as acute or chronic; B96.20 Unspecified Escherichia coli [E. coli] as the cause of diseases classified elsewhere; R31.9 Hematuria, unspecified; M10.9 Gout, unspecified; E78.5 Hyperlipidemia, unspecified; I25.10 Atherosclerotic heart disease of native coronary artery without angina pectoris; I12.9 Hypertensive chronic kidney disease with stage 1 through stage 4 chronic kidney disease, or unspecified chronic kidney disease; N18.9 Chronic kidney disease, unspecified
CPT/HCPCS: 36558; 76776; 76937; 77001; 80048; 80076; 80197; 81001; 83735; 84100; 85007; 85025; 85027; 87040; 87086; 87497; C1751; J0696; J1642; J1956; J7030; J7507; J7512; J7517

== ENCOUNTER 2018-01-15 12:01 | Day surgery (SDC) | payer MEDICARE, BC ==
[~2018-01-15 12:01] MED LIST changes: +CEFT1INJ5 IV; +EPIN1INJ21 IV PUSH; +EPIN1INJ21 SQ; +MAGN200T9; +RENATAB6 PO; +SOLU250I IV PUSH
[2018-01-15 12:18] VITALS: BP 158/96; PULSE 76; RESP 20; TEMP 97.9; O2SAT 98
[2018-01-15 14:55] VITALS: BP 140/86; PULSE 86; RESP 18; TEMP 98
--- NOTE | 2018-01-16 08:16 | RADRPT ---
EXAM DATE: 01/15/2018 3:05 PM EDT AGE/SEX: 47 years / Male INDICATIONS: Patient presents with tunneled power PICC in need of removal. CLINICAL DATA: This is the patient's initial encounter. Patient reports that signs and symptoms have been present for 2 weeks and indicates a pain score of 0/10. MEDICAL/SURGICAL HISTORY: Hypertension. Renal Failure . Ulcer repair Kidney transplant Right w rist surgery COMPARISON: No prior exams available for comparison. IMAGE SERIES: ACCESS SITE: DEVICE(S): . . PROCEDURE: 1. Tunneled PICC line removal. The risks, benefits and alternatives to the procedure were explained and verbal and written consent w as obtained. The site was prepped in sterile fashion. Full sterile technique was used, including ca p, mask, sterile gloves and gown and a large sterile sheet. Hand hygiene and 2% chlorhexidine and/or betadine/alcohol prep was utilized per protocol for cutaneous antisepsis. The skin and subcutaneous tissues were infiltrated with local anesthetic solution. The tract was anesthetized with 1% Lidocaine using. The tunneled PICC line was dissected from the [place] bcutaneous tissues and easily removed in one piece. Manual pressure was applied to the venotomy site until hemostasis was obtained. Sterile dressing was applied. The patient tolerated the procedure well and there were no complications. CONCLUSION: 1. Uncomplicated tunneled PICC line removal. Electronically signed by: Vincent Pringle MD 01/16/2018 8:15 AM EDT
== END 2018-01-15 15:10 | disposition home or self-care (01) ==
LOC: HRIP 12:01 → HROP 12:01
PROVIDERS: ATTEND Internal Medicine Nephrology
DX: Z45.2 Encounter for adjustment and management of vascular access device (principal); N18.6 End stage renal disease; I12.0 Hypertensive chronic kidney disease with stage 5 chronic kidney disease or end stage renal disease; Z94.0 Kidney transplant status
CPT/HCPCS: 36589